=== PATIENT | female | born 1990 | race Caucasian/White ===

== ENCOUNTER 2022-04-05 08:46 | Emergency (ER) | payer BC, SELFPAY ==
[2022-04-05 09:00] VITALS: BP 107/67; BP 113/62; PULSE 100; PULSE 54; RESP 12; RESP 26; TEMP 36.2; O2SAT 100; O2SAT 98; BMI 21.9
--- NOTE | 2022-04-05 09:10 | ED_ITS ---
HPI - Abdominal Pain General Time Seen by Provider: 09:10 Date Seen: 04/05/22 Chief Complaint: Abdominal Pain Stated Complaint: Lower abdominal pain Time Seen by Provider: 04/05/22 08:49 Source: patient, family (Mother is with), RN notes reviewed and old records reviewed Mode of arrival: ambulatory Limitations: no limitations History of Present Illness HPI narrative: Patient is a pleasant but uncomfortable 31-year-old female coming in with severe abdominal pain. She awoke this morning and went to go to the bathroom. She was having some lower pelvic pain, thought she might need to have a bowel movement. She you went into the bathroom and states she actually passed out. She did not end up having a bowel movement. The pain is worsened and is severe. She has had nausea but has not vomited. She has not ate or drank anything this morning. She is not sure if the pain is causing her to have nausea or if she is nauseated baseline now with the 80s abdominal symptoms. She does have a significant history with pelvic floor pain and has been to [facility] with this. She also has a history of IBS. She has been seen our obstetricians here in there is an extensive note from Dr. Frye from 02/27/2022. I have reviewed that in its entirety. She did have a pelvic ultrasound on 01/29/2022 which was normal but did have a physiologic cyst I believe on the right ovary. From the note on February 27 her pelvic floor pain included Depakote nannette dysfunction, dyspareunia and sporadic lower abdominal cramping. Patient states she is never experienced anything like this before. She states her most recent period was 03/15/2022 and per her previous records her LMP prior to that was 02/15/2022. She is not actively trying to conceive at this time. MD elicited complaint: abdominal pain Onset (ago): hour(s) Pain Consistency: constant Location: RLQ, suprapubic, pelvis and other (Generalizes into the abdomen) Severity: severe Related Data Date of last menstrual period: 03/15/22 Patient : No Home Medications Medication Instructions Recorded Confirmed No Known Home Medications 04/05/22 04/05/22 Allergies Allergy/AdvReac Type Severity Reaction Status Date / Time amoxicillin Allergy Verified 04/05/22 09:05 erythromycin base Allergy Verified 04/05/22 09:05 fluoxetine [From Prozac] Allergy Verified 04/05/22 09:05 Penicillins Allergy Verified 04/05/22 09:05 Review of Systems Status of ROS Reports: 10 or more systems reviewed and unremarkable except as noted in History and below [facility] Medical History (Updated 04/05/22 @ 11:52 by Xi Singh MD) IBS (irritable bowel syndrome) Pelvic pain Social History Do you use any of these nicotine containing products: None Second hand tobacco smoke exposure: No How often do you have a drink containing alcohol: 2-3 times a week How many standard drinks containing alcohol do you have on a typical day: 1 or 2 How often do you have six or more drinks on one occasion: Less than monthly AUDIT-C Alcohol total score: 4 Non-prescribed substance use: denies use Exam Const: Vital Signs, click to edit/add: Vital Signs - 24 hr 04/05/22 09:00 Temperature 97.2 F L Pulse Rate [Right Pulse Oximeter] 54 L Respiratory Rate 26 H Blood Pressure [Ri ght Upper Arm] 113/62 Pulse Oximetry 98 Documenting provider has reviewed patient's vital signs: yes Common normals: oriented x3, no limitations, healthy appearing and alert General appearance: cooperative and in distress moderate (Uncomfortable and hanging onto her right lower quadrant) Nutritional appearance: thin Orientation/consciousness: Yes awake HENMT: Common normals: normocephalic, head/scalp atraumatic, hearing grossly normal bilaterally, external ears normal, nasal mucous membranes and turbinates normal, moist oral mucous membranes, oropharynx normal and dentition normal Head and scalp: normocephalic and atraumatic Nose: nasal mucous membranes and turbinates normal External ear: external ears normal Eye: Common normals: PERRL, EOMs intact bilaterally, conjunctivae normal and no scleral icterus Conjunctiva: conjunctiva(e) normal Pupil: PERRL Neck & C-Spine: Common normals: full ROM, no lymphadenopathy, supple, no meningeal signs, no JVD and thyroid normal Thyroid: thyroid normal Resp: Common normals: normal respiratory effort, no retractions, no use of accessory muscles and clear to auscultation bilaterally Auscultation: clear to auscultation bilaterally Cardio: Common normals: no JVD, regular rate, regular rhythm, S1 normal heart sound, S2 normal heart sound, no gallops and no clicks Rate: regular rate Rhythm: regular rhythm Heart sounds: S1 normal and S2 normal GI: Common normals: Normal to inspection, nondistended, normoactive bowel sounds present, soft to palpation, no hepatosplenomegaly and no masses Palpation: soft, tender, guarding and no hepatosplenomegaly Other: Is tender in her right lower quadrant to suprapubic area but pain generalizes throughout her abdomen. I would not say that there is any definite rebound or guarding but she is uncomfortable with the examination. Extremity: Common normals: normal to inspection, full ROM, normal capillary refill, no joint enlargement, no clubbing, cyanosis or edema, no calf tenderness and no pedal edema Neuro: Common normals: oriented x3 Sensorium/orientation: awake and alert Meningeal signs: no meningeal signs Course Course Hospital Course: We will place an IV, get appropriate screening labs, will start 500 mL normal saline and give her 15 mg IV Toradol with 4 mg IV Zofran. We will start with a pelvic ultrasound looking at her right ovary. The acuity and severity of this would make me think more of an ovarian cyst. It is possible that this is an atypical presentation of her pelvic floor dysfunction or IBS. We will confirm negative status to rule out any concerning entities such as ectopic . There is no vaginal bleeding at this time. Depending on our evaluation with the ultrasound and labs, may need to consider further advanced imaging with CT but we will start with a pelvic ultrasound and labs 1st. We will try a nonnarcotic pain alleviation 1st. Reevaluation(s) Reevaluation #1: Have reviewed patient's ultrasound with her. She does have a hemorrhagic cyst on the left side. Right now I see her holding centrally in the pelvic area. She did require some morphine IV after her ultrasound as her pain was quite severe. She is better but still having pain. We did discuss that the appendix is on the right side but with the onset of her pain just this morning within hours, completely normal labs and normal inflammatory markers, would recommend a period of observation rather than proceeding to CT abdomen pelvis immediately. She would be at low risk of rupture this early on in the course of appendicitis. I have seen patients present with opposite sided pain from where there cyst is. She understands the rationale for holding and having a period of outpatient observation at this point. I am going to re-dose 15 mg IV Toradol, give her 5 mg oral oxycodone for further pain management. Ten tabs from [facility] for oxycodone and Zofran provided. Time: 11:45 Vital Signs Vital signs: Initial Vital Signs Temperature 97.2 F L 04/05/22 09:00 Temperature Source Temporal Artery Scan 04/05/22 09:00 Pulse Rate 54 L 04/05/22 09:00 Respiratory Rate 26 H 04/05/22 09:00 Blood Pressure 113/62 04/05/22 09:00 Blood Pressure Mean 79 04/05/22 09:00 Blood Pressure Position Supine 04/05/22 09:00 Pulse Oximetry 98 04/05/22 09:00 Oxygen Delivery Method 04/05/22 09:00 Vital Signs Temperature 97.2 F L 04/05/22 09:00 Pulse Rate 54 L 04/05/22 09:00 Respiratory Rate 26 H 04/05/22 09:00 Blood Pressure 113/62 04/05/22 09:00 Pulse Oximetry 98 04/05/22 09:00 Temperature 97.2 F L 04/05/22 09:00 Pulse Rate 54 L 04/05/22 09:00 Respiratory Rate 26 H 04/05/22 09:00 Blood Pressure 113/62 04/05/22 09:00 Pulse Oximetry 98 04/05/22 09:00 MDM - Abdominal Pain Lab Data Attestation: I reviewed the patient's lab results. Labs: Lab Results 04/05/22 04/05/22 04/05/22 Range/Units 09:30 09:30 09:30 WBC 6.70 (4.50-11.00) K/uL RBC 4.47 (4.00-5.20) m/uL Hgb 14.3 (12.0-16.0) gm/dL Hct 41.7 (33.0-51.0) % MCV 93 (80-100) fL MCH 32 (26-34) pg MCHC 34 (32-36) gm/dL RDW Coeff of Thomas 12.0 (11.5-15.5) % Plt Count 247 (140-440) K/uL Neut % (Auto) 65.8 (42.0-72.0) % Lymph % (Auto) 23.0 (20-44) % Kingfisher % (Auto) 9.6 (0.0-11.0) % Eos % (Auto) 1.2 (0.0-7.0) % Baso % (Auto) 0.4 (0.0-3.0) % Neut # (Auto) 4.41 (1.7-7.0) K/uL Lymph # (Auto) 1.54 (0.90-2.90) K/uL Kingfisher # (Auto) 0.60 (0.00-0.90) K/UL Eos # (Auto) 0.08 (0.00-0.50) K/uL Baso # (Auto) 0.03 (0.00-0.30) K/uL Abs Immat Gran (auto) 0.00 (0.00-0.30) K/uL ESR <2 L (2-20) mm/hr Sodium 137 (135-149) mmol/L Potassium 4.2 (3.6-5.1) mmol/L Chloride 106 (96-114) mmol/L Carbon Dioxide 25 (20-32) mmol/L BUN 18 (5-24) mg/dL Creatinine 0.8 (0.5-1.5) mg/dL Estimated Creat Clear 99.99 Estimated GFR 102 ml/min Glucose 91 (60-115) mg/dL Lactate (0.5-1.9) mmol/L Calcium 8.8 (8.4-10.6) mg/dL Total Bilirubin 0.6 (0.1-1.5) mg/dL AST 26 (12-35) U/L ALT 18 (4-35) U/L Alkaline Phosphatase 78 (40-150) U/L C-Reactive Protein < 0.5 L (0.5-1.0) mg/dL Total Protein 6.5 (6.0-8.3) g/dL Albumin 4.1 (3.3-5.0) g/dL HCG, Qual (Negative) 04/05/22 04/05/22 Range/Units 09:30 09:30 WBC (4.50-11.00) K/uL RBC (4.00-5.20) m/uL Hgb (12.0-16.0) gm/dL Hct (33.0-51.0) % MCV (80-100) fL MCH (26-34) pg MCHC (32-36) gm/dL RDW Coeff of Thomas (11.5-15.5) % Plt Count (140-440) K/uL Neut % (Auto) (42.0-72.0) % Lymph % (Auto) (20-44) % Kingfisher % (Auto) (0.0-11.0) % Eos % (Auto) (0.0-7.0) % Baso % (Auto) (0.0-3.0) % Neut # (Auto) (1.7-7.0) K/uL Lymph # (Auto) (0.90-2.90) K/uL King[place]isher # (Auto) (0.00-0.90) K/UL Eos # (Auto) (0.00-0.50) K/uL Baso # (Auto) (0.00-0.30) K/uL Abs Immat Gran (auto) (0.00-0.30) K/uL ESR (2-20) mm/hr Sodium (135-149) mmol/L Potassium (3.6-5.1) mmol/L Chloride (96-114) mmol/L Carbon Dioxide (20-32) mmol/L BUN (5-24) mg/dL Creatinine (0.5-1.5) mg/dL Estimated Creat Clear Estimated GFR ml/min Glucose (60-115) mg/dL Lactate 1.0 (0.5-1.9) mmol/L Calcium (8.4-10.6) mg/dL Total Bilirubin (0.1-1.5) mg/dL AST (12-35) U/L ALT (4-35) U/L Alkaline Phosphatase (40-150) U/L C-Reactive Protein (0.5-1.0) mg/dL Total Protein (6.0-8.3) g/dL Albumin (3.3-5.0) g/dL HCG, Qual Negative (Negative) Imaging Data US - abdomen: Attestation: I have reviewed the pertinent imaging results. Radiologist's impression: Patient: [facility] Facility:?[facility] Patient ID:?[id number] Site Patient ID:?[id number]. Site :?[id number] Study:?US Pelvis -04/05/2022 10:33:21 AM Ordering Physician:Stephon Layne Final Report: INDICATION: Pelvic pain. COMPARISON: Report of pelvic ultrasound from 01/29/2022 available. TECHNIQUE: Transvaginal pelvic ultrasound. FINDINGS: The uterus is measuring 7.5 x 3.2 x 3.4 cm. The endometrial stripe is measuring 6 mm in thickness with homogeneous echotexture. The right ovary is measuring 3.8 x 2.4 x 2.8 cm and the left ovary is measuring 4.7 x 3.8 x 3.6 cm. Normal blood flow to the ovaries bilateral. No free fluid identified in the pelvic cul-de-sac. A 3.5 x 3.5 x 3.2 cm hemorrhagic cyst left ovary. IMPRESSION: 1. A 3.5 cm hemorrhagic cyst left ovary. 2. Negative transvaginal pelvic ultrasound otherwise. Dictated by Debbie Murphy MD @ 04/05/2022 11:32:01 AM (Electronic Signature) Critical Care Time Critical Care Time Critical Care Time: No Discharge Plan Discharge Clinical Impression: Hemorrhagic cyst of left ovary Patient Disposition: Home, Self-Care Condition: Stable Instructions: Ovarian Cyst (ED) Additional Instructions: Take Tylenol 1000 mg 3 times a day baseline for pain. Can supplement with ibuprofen per bottle directions for additional pain control. Prescription of oxycodone will be provided for more severe pain, note that this is narcotic and you cannot drive or operate machinery on it, can make you constipated and nauseated. Will send a prescription for Zofran for helping with nausea. If you develop fever, have worsening of your abdominal pain or is continuing to localize to the right lower quadrant, do recommend re-evaluation within [address] imaging of the abdomen needs to be entertained. Activity Level: Activity as Tolerated Discharge Diet: Regular Prescriptions: No Action No Known Home Medications 0RF Follow Up/Referrals: Cole Roper MD [Primary Care Provider] - Stand Alone Forms: [employer] Info Instructions
--- NOTE | 2022-04-05 09:17 | CRLHL7_ITS ---
For Patients: As a result of the Century Cures Act, medical imaging exams and procedure reports are released immediately into your electronic medical record. You may view this report before your referring provider. If you have questions, please contact your health care provider. INDICATION: Pelvic pain. COMPARISON: Report of pelvic ultrasound from 01/29/2022 available. TECHNIQUE: Transvaginal pelvic ultrasound. FINDINGS: The uterus is measuring 7.5 x 3.2 x 3.4 cm. The endometrial stripe is measuring 6 mm in thickness with homogeneous echotexture. The right ovary is measuring 3.8 x 2.4 x 2.8 cm and the left ovary is measuring 4.7 x 3.8 x 3.6 cm. Normal blood flow to the ovaries bilateral. No free fluid identified in the pelvic cul-de-sac. A 3.5 x 3.5 x 3.2 cm hemorrhagic cyst left ovary. IMPRESSION: 1. A 3.5 cm hemorrhagic cyst left ovary. 2. Negative transvaginal pelvic ultrasound otherwise. Dictated by Debbie Murphy MD @ 04/05/2022 11:32:01 AM (Electronically Signed)
[2022-04-05 09:40] LABS: Basophils Absolute Auto 0.03 K/uL (0.00-0.30); Basophils Percent Auto 0.4 % (0.0-3.0); Eosinophils Absolute Auto 0.08 K/uL (0.00-0.50); Eosinophils Percent Auto 1.2 % (0.0-7.0); Hemoglobin* 14.3 gm/dL (12.0-16.0); Lymphocytes Absolute Auto 1.54 K/uL (0.90-2.90); Mean Corpuscular HGB Conc 34 gm/dL (32-36); Mean Corpuscular Hemoglobin 32 pg (26-34); Mean Corpuscular Volume 93 fL (80-100); Monocytes Percent Auto 9.6 % (0.0-11.0); Neutrophils Absolute Auto 4.41 K/uL (1.7-7.0); Neutrophils Percent Auto 65.8 % (42.0-72.0); Platelet Count* 247 K/uL (140-440); Red Blood Count 4.47 m/uL (4.00-5.20)
[2022-04-05] MEDS: 0.9 % SODIUM CHLORIDE 500 ML 500 ML IV (09:41)
[2022-04-05] MEDS: ONDANSETRON 2 MG/ML inj 4 MG IVP (09:42)
[2022-04-05] MEDS: KETOROLAC 15 MG/ML inj IVP ×2 (09:43→12:00)
[2022-04-05 09:45] VITALS: BP 112/63; PULSE 50; O2SAT 100
[2022-04-05 10:00] LABS: Albumin* 4.1 g/dL (3.3-5.0); Chloride* 106 mmol/L (96-114); Potassium* 4.2 mmol/L (3.6-5.1); Sodium* 137 mmol/L (135-149)
[2022-04-05 10:03] LABS: Alanine Aminotransferase* 18 U/L (4-35); Alkaline Phosphatase* 78 U/L (40-150); Aspartate Amino Transferase* 26 U/L (12-35); Bilirubin Total* 0.6 mg/dL (0.1-1.5); Blood Urea Nitrogen* 18 mg/dL (5-24); Calcium* 8.8 mg/dL (8.4-10.6); Carbon Dioxide* 25 mmol/L (20-32); Creatinine* 0.8 mg/dL (0.5-1.5); Est. Creatinine Clearance* 99.99; Estimated Glomerular Filt Rate 102 ml/min; Glucose* 91 mg/dL (60-115); Total Protein* 6.5 g/dL (6.0-8.3)
[2022-04-05 10:08] LABS: HCG Qualitative Serum* Negative (Negative)
[2022-04-05 10:24] LABS: C Reactive Protein* < 0.5 mg/dL (0.5-1.0)
[2022-04-05 10:30] VITALS: BP 113/80; PULSE 55; RESP 12; O2SAT 100
[2022-04-05 10:44] LABS: Erythrocyte SedimentationRate* <2 mm/hr (2-20)
[2022-04-05 11:00] VITALS: BP 104/55; PULSE 49; O2SAT 100
[2022-04-05] MEDS: MORPHINE 4 MG/ML INJ IVP (11:23)
[2022-04-05 11:30] VITALS: BP 106/56; PULSE 56; O2SAT 98
[2022-04-05 11:49] LABS: Hematocrit 41.7 % (33.0-51.0)
[2022-04-05] MEDS: OXYCODONE 5 MG TABLET PO (12:03)
[2022-04-05 12:05] LABS: SARS PCR* Negative SARS-CoV-2 (Negative)
[2022-04-05 12:15] VITALS: BP 107/57; PULSE 50; RESP 18; O2SAT 100
[2022-04-05 15:35] LABS: Slide Review Reflex No
== END 2022-04-05 12:14 | disposition home or self-care (01) ==
PROVIDERS: Emergency Provider Family Medicine; PCP Family Medicine
DX: N83.202 Unspecified ovarian cyst, left side (principal)
CPT/HCPCS: 36415; 76830; 80053; 83605; 84703; 85025; 85651; 86140; 87635; 93976; 96374; 96375; 99284; A9270; J1885; J2270; J2405; J7120

== ENCOUNTER 2022-04-07 13:48 | Inpatient (IN) | payer BC, SELFPAY ==
[2022-04-07] VITALS (9 sets, daily range): BP systolic 108–122; BP diastolic 61–82; PULSE 44–53; RESP 12–18; TEMP 36.8–36.9; O2SAT 98–100; BMI 21.9; BMI 23.2
--- NOTE | 2022-04-07 14:35 | CRLHL7_ITS ---
For Patients: As a result of the Century Cures Act, medical imaging exams and procedure reports are released immediately into your electronic medical record. You may view this report before your referring provider. If you have questions, please contact your health care provider. HISTORY: Right lower quadrant abdominal pain. TECHNIQUE: Intravenous contrast enhanced CT of the abdomen and pelvis. 69 mL Isovue-370 intravenous contrast was administered. COMPARISON: No prior. FINDINGS: There is no focal liver parenchymal abnormality. No biliary ductal dilatation. Gallbladder does not appear excessively distended. Possible small amount of pericholecystic fluid. Spleen and adrenal glands are normal. No focal pancreatic abnormality. Symmetric nephrograms. No renal mass or hydronephrosis. No obstructive calculus. Urinary bladder is mildly distended. - Small amount of pelvic free fluid. Peripherally enhancing structure within the left adnexa measuring approximately 2.3 cm in size may relate to recent cyst or follicle rupture. - No small bowel obstruction. No appendicitis. No diverticulitis. The colon is nondistended which limits evaluation of its wall thickness. - No abdominal aortic aneurysm. - No infiltrate within the lung bases nor pleural effusion. - No acute fractures. IMPRESSION: 1. Small amount of pelvic free fluid which is nonspecific but could be physiologic in a female patient this age. 2. Peripherally enhancing structure within the left adnexa may relate to recent cyst or follicle rupture. 3. There is no appendicitis. 4. Possible small amount pericholecystic fluid. Gallbladder does not appear excessively distended. Dictated by Deonte Bear MD @ 04/07/2022 3:45:34 PM Please note that all CT scans at this facility use dose modulation, iterative reconstruction, and/or weight-based dosing when appropriate to reduce radiation dose to as low as reasonably achievable. Dictated by: Deonte Bear MD @ 04/07/2022 15:45:41 (Electronically Signed)
--- NOTE | 2022-04-07 14:35 | CRLHL7_ITS ---
For Patients: As a result of the Century Cures Act, medical imaging exams and procedure reports are released immediately into your electronic medical record. You may view this report before your referring provider. If you have questions, please contact your health care provider. CLINICAL HISTORY: Right pelvic pain TECHNIQUE: Real time, mak scale images were acquired of the pelvis using a transabdominal and transvaginal approach. Color Doppler analysis was performed of the ovaries. FINDINGS: Uterus measures 6.85 and 3.8 centimeters. Endometrium measures 6 millimeters. Moderate MR anechoic fluid in the cul-de-sac. Right ovary measures 3.5 x 2.7 x 3.6 centimeters normal blood flow to the right ovary. Complex left ovarian cyst measuring 2.7 x 2 x 2.7 centimeters. Normal blood flow to the left ovary. IMPRESSION: 1. Unremarkable right ovary with normal blood flow. Moderate amount of free fluid in the pelvis. 2. Complex left ovarian cyst. Normal blood flow to left ovary recommend follow-up in 8-12 weeks. Dictated by Zee Kang MD @ 04/07/2022 4:34:50 PM (Electronically Signed)
--- NOTE | 2022-04-07 14:42 | ED_ITS ---
HPI - General Adult General Time Seen by Provider: 14:42 Date Seen: 04/07/22 Chief complaint: Abdominal Pain Stated complaint: Right Side Abdominal Pain Time Seen by Provider: 04/07/22 14:29 Source: patient Mode of arrival: ambulatory Limitations: no limitations History of Present Illness HPI narrative: Patient is a 31-year-old female who was here on Friday 2 days ago with significant pelvic pain. She was noted to have a left hemorrhagic ovarian cyst, she was prescribed oxycodone but continues to have pain, and now it is more on the right side of her lower abdomen. Her ultrasound at that time showed good blood flow bilaterally, no torsion, test was negative. The patient has had a workup for pelvic floor pain has been to [place] for this, irritable bowel syndrome. She reports the pain is quite significant when she tries to have a bowel movement or urinate, she gets a sensation of passing out. She has no chest pain no breathing issue, no COVID symptoms. Patient recently negative COVID test. Denies fevers chills or rigors, denies dysuria or hematuria no constipation diarrhea. Related Data Home Medications Medication Instructions Recorded Confirmed No Known Home Medications 04/05/22 04/05/22 Allergies Allergy/AdvReac Type Severity Reaction Status Date / Time amoxicillin Allergy Verified 04/07/22 14:50 erythromycin base Allergy Verified 04/07/22 14:50 fluoxetine [From Prozac] Allergy Verified 04/07/22 14:50 Penicillins Allergy Verified 04/07/22 14:50 Review of Systems Status of ROS: Reports: 10 or more systems reviewed and unremarkable except as noted in History and below [facility] Medical History IBS (irritable bowel syndrome) Pelvic pain Social History Smoking Status: Never smoker Do you use any of these nicotine containing products: None Second hand tobacco smoke exposure: No How often do you have a drink containing alcohol: 2-3 times a week How many standard drinks containing alcohol do you have on a typical day: 1 or 2 How often do you have six or more drinks on one occasion: Less than monthly AUDIT-C Alcohol total score: 4 Non-prescribed substance use: denies use Exam Const: Vital Signs, click to edit/add: Vital Signs - 24 hr 04/07/22 14:13 Pulse Rate [Pulse Oximeter] 53 L Respiratory Rate 18 Blood Pressure [Ri ght Upper Arm] 122/74 Pulse Oximetry 100 Course Course Hospital Course: Given the patient's degree of pain will start an IV, IV morphine, IV Zofran, IV Toradol. Will repeat a pelvic ultrasound to make sure there was adequate blood flow and recheck the ovarian hemorrhagic cyst on the left, will also do a CT scan with IV contrast to ensure there is no appendicitis given her right lower quadrant pain, or other intra-abdominal pathology. Will check labs, IV fluids, pain and nausea control Vital Signs Vital signs: Initial Vital Signs Pulse Rate 53 L 04/07/22 14:13 Respiratory Rate 18 04/07/22 14:13 Blood Pressure 122/74 04/07/22 14:13 Blood Pressure Mean 90 04/07/22 14:13 Blood Pressure Position Supine 04/07/22 14:13 Pulse Oximetry 100 04/07/22 14:13 Oxygen Delivery Method 04/07/22 14:13 Vital Signs Pulse Rate 53 L 04/07/22 14:13 Respiratory Rate 18 04/07/22 14:13 Blood Pressure 122/74 04/07/22 14:13 Pulse Oximetry 100 04/07/22 14:13 Pulse Rate 53 L 04/07/22 14:13 Respiratory Rate 18 04/07/22 14:13 Blood Pressure 122/74 04/07/22 14:13 Pulse Oximetry 100 04/07/22 14:13 Medical Decision Making MDM Narrative Medical decision making narrative: Patient was here 2 days ago with a diagnosis of left ovarian her M hemorrhagic cyst, now her symptoms are more localized to the right lower quadrant, I think we need to rule out appendicitis, rule out ovarian torsion, rule out increased bleeding from an ovarian cyst or ruptured ovarian cyst with pelvic blood. She had a negative test recently will repeat, electrolytes and labs. The patient her mom were comfortable plan. Addendum: The patient's pain is markedly improved with the medicine above, given that she was on oxycodone home and continued to have symptoms and pain, I will admit her to the hospital. Dr. hannon kindly will follow in hospital. Discussed with Dr. Ruth Martin are research food technologist oracle security consultant who was aware of the situation. I will review the ultrasound formal report when it returns. From the cable technician the patient has fluid around the right ovary consistent with bleeding not marked blood in the cul-de-sac and a persistent left ovarian hemorrhagic cyst. CT scan of the abdomen pelvis showed no appendicitis, and this was done given her right-sided abdominal pain. Patient does feel better with IV medications, and I think admission overnight for hydration, pain control IV would be reasonable, with research food technologist consultation as needed. Patient her mother were comfortable plan Lab Data Labs: Lab Results 04/07/22 04/07/22 04/07/22 Range/Units 14:45 14:45 14:45 WBC 8.93 (4.50-11.00) K/uL RBC 4.44 (4.00-5.20) m/uL Hgb 14.3 (12.0-16.0) gm/dL Hct 41.7 (33.0-51.0) % MCV 94 (80-100) fL MCH 32 (26-34) pg MCHC 34 (32-36) gm/dL RDW Coeff of Thomas 12.0 (11.5-15.5) % Plt Count 255 (140-440) K/uL Neut % (Auto) 59.9 (42.0-72.0) % Lymph % (Auto) 29.8 (20-44) % [place] % (Auto) 8.5 (0.0-11.0) % Eos % (Auto) 0.9 (0.0-7.0) % Baso % (Auto) 0.3 (0.0-3.0) % Neut # (Auto) 5.35 (1.7-7.0) K/uL Lymph # (Auto) 2.66 (0.90-2.90) K/uL [place] # (Auto) 0.80 (0.00-0.90) K/UL Eos # (Auto) 0.08 (0.00-0.50) K/uL Baso # (Auto) 0.03 (0.00-0.30) K/uL Abs Immat Gran (auto) 0.05 (0.00-0.30) K/uL Sodium 138 (135-149) mmol/L Potassium 4.0 (3.6-5.1) mmol/L Chloride 108 (96-114) mmol/L Carbon Dioxide 27 (20-32) mmol/L BUN 10 (5-24) mg/dL Creatinine 0.8 (0.5-1.5) mg/dL Estimated Creat Clear 99.99 Estimated GFR 102 ml/min Glucose 96 (60-115) mg/dL Calcium 9.2 (8.4-10.6) mg/dL Total Bilirubin 0.6 (0.1-1.5) mg/dL Direct Bilirubin 0.2 (0.0-0.5) mg/dL AST 33 (12-35) U/L ALT 25 (4-35) U/L Alkaline Phosphatase 80 (40-150) U/L C-Reactive Protein < 0.5 L (0.5-1.0) mg/dL Total Protein 6.8 (6.0-8.3) g/dL Albumin 4.4 (3.3-5.0) g/dL Amylase 69 (18-89) U/L HCG, Qual (Negative) 04/07/22 Range/Units 14:45 WBC (4.50-11.00) K/uL RBC (4.00-5.20) m/uL Hgb (12.0-16.0) gm/dL Hct (33.0-51.0) % MCV (80-100) fL MCH (26-34) pg MCHC (32-36) gm/dL RDW Coeff of Thomas (11.5-15.5) % Plt Count (140-440) K/uL Neut % (Auto) (42.0-72.0) % Lymph % (Auto) (20-44) % [place] % (Auto) (0.0-11.0) % Eos % (Auto) (0.0-7.0) % Baso % (Auto) (0.0-3.0) % Neut # (Auto) (1.7-7.0) K/uL Lymph # (Auto) (0.90-2.90) K/uL [place] # (Auto) (0.00-0.90) K/UL Eos # (Auto) (0.00-0.50) K/uL Baso # (Auto) (0.00-0.30) K/uL Abs Immat Gran (auto) (0.00-0.30) K/uL Sodium (135-149) mmol/L Potassium (3.6-5.1) mmol/L Chloride (96-114) mmol/L Carbon Dioxide (20-32) mmol/L BUN (5-24) mg/dL Creatinine (0.5-1.5) mg/dL Estimated Creat Clear Estimated GFR ml/min Glucose (60-115) mg/dL Calcium (8.4-10.6) mg/dL Total Bilirubin (0.1-1.5) mg/dL Direct Bilirubin (0.0-0.5) mg/dL AST (12-35) U/L ALT (4-35) U/L Alkaline Phosphatase (40-150) U/L C-Reactive Protein (0.5-1.0) mg/dL Total Protein (6.0-8.3) g/dL Albumin (3.3-5.0) g/dL Amylase (18-89) U/L HCG, Qual Negative (Negative) Discharge Plan Discharge Clinical Impression: Abdominal pain, acute, Hemorrhagic cyst of left ovary Patient Disposition: Admitted As Inpatient Condition: Improved Prescriptions: No Action No Known Home Medications 0RF Follow Up/Referrals: Cole Roper MD [Primary Care Provider] -
[2022-04-07] MEDS: KETOROLAC 30 MG/ML inj IVP (14:55)
[2022-04-07] MEDS: MORPHINE 4 MG/ML INJ IVP ×5 (14:55→23:06)
[2022-04-07] MEDS: ONDANSETRON 2 MG/ML inj 4 MG IVP ×2 (14:55→20:12)
[2022-04-07] MEDS: 0.9 % SODIUM CHLORIDE 1000 ml 1,000 ML 6000 ML IV (14:56)
[2022-04-07 15:00] LABS: Basophils Absolute Auto 0.03 K/uL (0.00-0.30); Basophils Percent Auto 0.3 % (0.0-3.0); Eosinophils Absolute Auto 0.08 K/uL (0.00-0.50); Eosinophils Percent Auto 0.9 % (0.0-7.0); Hematocrit 41.7 % (33.0-51.0); Hemoglobin* 14.3 gm/dL (12.0-16.0); Immature Granulocytes Abs Auto 0.05 K/uL (0.00-0.30); Lymphocytes Absolute Auto 2.66 K/uL (0.90-2.90); Lymphocytes Percent Auto 29.8 % (20-44); Mean Corpuscular HGB Conc 34 gm/dL (32-36); Mean Corpuscular Hemoglobin 32 pg (26-34); Mean Corpuscular Volume 94 fL (80-100); Monocytes Percent Auto 8.5 % (0.0-11.0); Neutrophils Absolute Auto 5.35 K/uL (1.7-7.0); Neutrophils Percent Auto 59.9 % (42.0-72.0); Platelet Count* 255 K/uL (140-440); Red Blood Count 4.44 m/uL (4.00-5.20); White Blood Count* 8.93 K/uL (4.50-11.00)
[2022-04-07 15:11] LABS: Chloride* 108 mmol/L (96-114); Sodium* 138 mmol/L (135-149)
[2022-04-07 15:12] LABS: Albumin* 4.4 g/dL (3.3-5.0); HCG Qualitative Serum* Negative (Negative)
[2022-04-07 15:13] LABS: Slide Review Reflex No
[2022-04-07 15:14] LABS: Amylase* 69 U/L (18-89); Creatinine* 0.8 mg/dL (0.5-1.5); Est. Creatinine Clearance* 99.99; Estimated Glomerular Filt Rate 102 ml/min
[2022-04-07 15:15] LABS: Bilirubin Direct* 0.2 mg/dL (0.0-0.5); Bilirubin Total* 0.6 mg/dL (0.1-1.5); Blood Urea Nitrogen* 10 mg/dL (5-24); Calcium* 9.2 mg/dL (8.4-10.6); Carbon Dioxide* 27 mmol/L (20-32); Glucose* 96 mg/dL (60-115); Total Protein* 6.8 g/dL (6.0-8.3)
[2022-04-07 15:16] LABS: Alanine Aminotransferase* 25 U/L (4-35); Alkaline Phosphatase* 80 U/L (40-150); Aspartate Amino Transferase* 33 U/L (12-35)
[2022-04-07 15:19] LABS: C Reactive Protein* < 0.5 mg/dL (0.5-1.0)
[2022-04-07 16:19] LABS: Appearance Urine Clear (Clear); Bilirubin Urine Negative (Negative); Blood Urine Negative (Negative); Color Urine Yellow (Yellow); Glucose Urine Negative (Negative); Ketones Urine Negative (Negative); Leukocyte Esterase Urine Negative (Negative); Nitrite Urine Negative (Negative); Protein Urine Negative (Negative); Specific Gravity Urine 1.015 (1.000-1.030); Urobilinogen Urine 0.2 (0.2-1.0)
[2022-04-07 16:29] LABS: Bacteria Urine Few; RBC Urine 0-2 (0-2); WBC Urine 0-2 (0-5)
--- NOTE | 2022-04-07 16:32 | P.IMHP_ITS ---
Hospitalist- H&P: HPI History of Present Illness Time Seen by Provider: 16:40 Date Seen: 04/07/22 Chief complaint: Right Side Abdominal Pain Narrative: Natividad Bravo is a 31 year old female who presented to the ED for persistent lower abdominal pain. Symptoms began 3 days ago, in bilateral lower quadrants. Over the past 2 days, it has primarily localized into the RLQ. She's had associated nausea and dry heaving. Did have an episode of syncope yesterday while straining to have a BM (has noted some constipation on Oxycodone). Seen in ED 04/05 for symptoms, found to have a LEFT ovarian cyst on imaging. She was discharged home with oral oxycodone, but symptoms have worsened over the last 24 hours. ER course and findings: - persistent LEFT ovarian cyst on pelvic ultrasound - given RIGHT sided pain, CT scan was done, exhibiting no additional findings or concerns - Moderate pain relief with IV morphine, also required Zofran for nausea Given intractable pain that has not been responsive to p.o. medications come patient will be admitted for pain control and monitoring. ER physician discussed case with Dr. Hall, on-call OBGYN, who agrees with plan and has no further recommendations for inpatient management. PCP is Dr. Roper, Dr. Frye is HOSIERY LOOPER. History of IBS. Also has history of pelvic floor dysfunction, seeing PT for this. No regular medications. G0. Stopped OCPs earlier this year - considering . LMP 03/15/22. Foot surgery and tonsillectomy remotely. 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 Review of Systems Status of ROS: Reports: 10 or more systems reviewed and unremarkable except as noted in History and below [facility] Medical History (Updated 04/07/22 @ 14:46 by Nader Whitfield MD) IBS (irritable bowel syndrome) Pelvic pain Surgical History (Updated 04/07/22 @ 18:34 by Pia Saunders RN) History of tonsillectomy Social History Highest level of school completed/degree received: Bachelor's degree Smoking Status: Never smoker Do you use any of these nicotine containing products: None Second hand tobacco smoke exposure: No How often do you have a drink containing alcohol: 2-3 times a week How many standard drinks containing alcohol do you have on a typical day: 1 or 2 How often do you have six or more drinks on one occasion: Less than monthly AUDIT-C Alcohol total score: 4 Non-prescribed substance use: denies use Caffeine: Yes (coffee) service: No Meds Home Medications and Allergies Home Medications Medication Instructions Recorded Confirmed Type No Known Home Medications 04/05/22 04/05/22 History Home Medication Comments: Recently given a prescription of oxycodone for pain control Allergies Allergy/AdvReac Type Severity Reaction Status Date / Time amoxicillin Allergy Verified 04/07/22 14:50 erythromycin base Allergy Verified 04/07/22 14:50 fluoxetine [From Prozac] Allergy Verified 04/07/22 14:50 Penicillins Allergy Verified 04/07/22 14:50 Exam Narrative: Exam Narrative: GEN: Alert and oriented, uncomfortable but nontoxic, answering questions appropriately HEENT: Normal external ears, EOMIs bilaterally, no scleral icterus CV: RRR, No concerning murmurs, rubs, or gallops R: LCTA bilaterally without concerning wheezing, rales, or rhonchi Ab: Soft, no distention, + ttp in BLQ, mild guarding Ext: wwp, no concerning edema Skin: No concerning skin lesions or rashes on exposed skin Neuro: Nonfocal Psych: Appropriate Const: Vital Signs, click to edit/add: Vital Signs - 24 hr 04/07/22 14:13 Pulse Rate [Pulse Oximeter] 53 L Respiratory Rate 18 Blood Pressure [Ri ght Upper Arm] 122/74 Pulse Oximetry 100 Hospitalist - H&P: Result Labs Labs: Short CBC 04/07/22 Range/Units 14:45 WBC 8.93 (4.50-11.00) K/uL Hgb 14.3 (12.0-16.0) gm/dL Hct 41.7 (33.0-51.0) % Plt Count 255 (140-440) K/uL BMP 04/07/22 14:45 Sodium 138 Potassium 4.0 Chloride 108 Carbon Dioxide 27 BUN 10 Creatinine 0.8 Glucose 96 Calcium 9.2 Liver Function 04/07/22 Range/Units 14:45 Total Bilirubin 0.6 (0.1-1.5) mg/dL Direct Bilirubin 0.2 (0.0-0.5) mg/dL AST 33 (12-35) U/L ALT 25 (4-35) U/L Alkaline Phosphatase 80 (40-150) U/L Albumin 4.4 (3.3-5.0) g/dL Urine 04/07/22 Range/Units 15:45 Urine Color Yellow (Yellow) Urine Appearance Clear (Clear) Urine pH 8.0 (5.0-8.5) Ur Specific [place] 1.015 (1.000-1.030) Urine Protein Negative (Negative) Urine Glucose (UA) Negative (Negative) Assessment and Plan Assessment and plan (1) Hemorrhagic cyst of left ovary: Status: Acute (2) Abdominal pain, acute: Status: Acute Plan 31-year-old female with abdominal pain secondary to hemorrhagic ovarian cyst: 1. Abdominal pain: Ovarian cyst most likely source. Patient has a history of IBS and pelvic floor dysfunction, but has never had symptoms like this with either of those diagnoses. Continue IV pain medications, transition to oral as tolerated. Antiemetics as needed. Monitor closely for any worsening of symptoms. 2. SCDs and ambulation for prophylaxis. 3. Full code.
--- NOTE | 2022-04-07 17:24 | W.PC.EDHO ---
Primary Language: Thai Preferred Language: Meal tray ordered Orientation Status: [X] Alert & Oriented [] Slight Confusion [] Known Dx Dementia Transfers By: [X] Assist of 1 [] Assist of 2 [] Lift Active Medications Generic Name Dose Route Start Last Admin Trade Name Freq PRN Reason Stop Dose Admin Morphine Sulfate 4 mg 04/07/22 16:42 04/07/22 16:52 Morphine 4 Mg/Ml Inj IVP 04/07/22 18:42 4 mg Q2H PRN Administration Pain Discontinued Medications Generic Name Dose Route Start Last Admin Trade Name Freq PRN Reason Stop Dose Admin Sodium Chloride 1,000 mls @ 6,000 mls/hr 04/07/22 14:45 04/07/22 16:00 0.9 % Sodium Chloride 1000 Ml IV 04/07/22 14:54 Infused .Q10M WILDER Infusion Ketorolac Tromethamine 30 mg 04/07/22 14:34 04/07/22 14:55 Ketorolac 30 Mg/Ml Inj IVP 04/07/22 14:35 30 mg ONCE ONE Administration Morphine Sulfate 4 mg 04/07/22 14:34 04/07/22 14:55 Morphine 4 Mg/Ml Inj IVP 04/07/22 14:35 4 mg ONCE ONE Administration Ondansetron HCl 4 mg 04/07/22 14:34 04/07/22 14:55 Ondansetron 2 Mg/Ml Inj IVP 04/07/22 14:35 4 mg ONCE ONE Administration Description of Symptoms ED Triage Present Problem was here friday and diagnosed with ovarian cyst. Description today having pain on R side, taking oxycodone for pain, last dose was at 8am. anytime I try to go to the bathroom I almost pass out Female History Date of last menstrual period 03/17/22 Hx Last Menstrual Period 03/17/22 Patient No Patient No Pain Pain Intensity [Right Abdomen] 10 Pain Intensity [Right Abdomen] 6 Pain Intensity 6 Pain Intensity 3 Pain Intensity 3 Pain Intensity 10 Pain Intensity 10 Pain Intensity 10 Pain Intensity 10 Pain Scale Used [Right Abdomen Numeric (1 - 10) ] Pain Scale Used [Right Abdomen Numeric (1 - 10) ] Pain Scale Used Numeric (1 - 10) Pain Scale Used Numeric (1 - 10) Pain Scale Used Numeric (1 - 10) Pain Scale Used Numeric (1 - 10) Pain Scale Used Numeric (1 - 10) Pain Scale Used Numeric (1 - 10) Pain Scale Used Numeric (1 - 10) Pain Site Observation [Right WNL Abdomen] IV Insertion/Site Date of IV Line Insertion [ #20G 04/07/22 right anticubital] Oxygen Administration Pulse Oximetry 100 Oxygen Delivery Method Room Air
[2022-04-07 17:38] LABS: SARS PCR* Negative SARS-CoV-2 (Negative)
--- NOTE | 2022-04-07 18:43 | ED.NURSE ---
1619-Order for inpatient placed by . COVID result pending at this time. M/S aware and MD aware. 1738-COVID result negative. 1745-M/S attempted to call report. 1600-Report given to PATI Serrano. Pt taken to Rm 281 via w/c, tolerates well. Pt reports pain improved after morphine. VSS.
[2022-04-07] MEDS: KETOROLAC 15 MG/ML inj IVP (21:04)
[2022-04-07] MEDS: OXYCODONE 5 MG TABLET PO (22:06)
[2022-04-08] VITALS (25 sets, daily range): BP systolic 90–126; BP diastolic 50–100; PULSE 42–66; RESP 12–20; TEMP 36.4–37.6; O2SAT 94–100
[2022-04-08] MEDS: LORazepam 0.5 MG TABLET PO (00:16)
[2022-04-08] MEDS: hydrOXYzine pamoate 25 MG CAPSULE PO ×2 (00:17→10:36)
[2022-04-08] MEDS: MORPHINE 4 MG/ML INJ IVP ×4 (02:10→19:07)
[2022-04-08] MEDS: ONDANSETRON 2 MG/ML inj 4 MG IVP ×3 (02:15→21:06)
[2022-04-08] MEDS: OXYCODONE 5 MG TABLET PO ×4 (03:00→21:05)
[2022-04-08] MEDS: KETOROLAC 15 MG/ML inj IVP ×4 (03:00→22:20)
--- NOTE | 2022-04-08 05:49 | PC.NURSE ---
[id number]: patient up ad yeimi, continues to have significant pain; see EMAR for meds given. rates pain between 4-7/10. pain increases with urination or pressure changes to abd.
[2022-04-08] MEDS: ACETAMINOPHEN 325 MG TABLET 975 MG PO ×2 (10:36→23:34)
--- NOTE | 2022-04-08 14:15 | PM.GYNCN1 ---
CONTRACT AGENT - CN: HPI Data of Consult Time Seen by Provider: 13:00 Date Seen: 04/08/22 Patient: [facility] Patient Consult date: 04/08/22 Requesting Physician: Ruma Perez MD Primary Care Provider: Cole Roper MD Consult Narrative Narrative: Natividad Bravo is a 31 year old female I am seeing by kind request of Dr. Perez for evaluation of persistent abdominal pain. She presented to the ER after severe pain leading to syncope on Friday evening. She had an ultrasound at that time showing suspected hemorrhagic cyst of the left ovary. She was treated with narcotics for suspected ruptured hemorrhagic left ovarian cyst and sent home. However, pain did not improve. She had another episode of syncope on Friday, which led her back to the ER. Repeat pelvic ultrasound showed uterus of normal dimensions, endometrial stripe 6 mm, moderate anechoic fluid in cul-de-sac, normal right ovary, complex left ovarian cyst measuring 2.7 cm in greatest dimension. There was normal blood flow to the left ovary. This time, she was admitted for pain control. She is currently using about 10 mg of oxycodone every 3 hours, in addition to IV morphine. Her pain is poorly managed on this regimen. Pain is most severe in the right lower quadrant. She had some diarrhea yesterday, none today. She tolerated regular diet for breakfast this morning at 8:00 a.m.. She was on combined oral contraceptives for years up until October 2021. I last saw her in clinic 01/28/2022. At that time, she did report some longstanding dyspareunia. Pelvic exam suggested vaginismus. She was referred to physical therapy. She has seen them for a couple visits, and reports improvement in fecal urgency, but no changes in pelvic pain. 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 Her mother manages the [employer]. Highest level of school completed/degree received: Bachelor's degree Smoking Status: Never smoker Do you use any of these nicotine containing products: None Second hand tobacco smoke exposure: No How often do you have a drink containing alcohol: 2-3 times a week How many standard drinks containing alcohol do you have on a typical day: 1 or 2 How often do you have six or more drinks on one occasion: Less than monthly AUDIT-C Alcohol total score: 4 Non-prescribed substance use: denies use Caffeine: Yes (coffee) service: No Meds Home Medications and Allergies Home Medications Medication Instructions Recorded Confirmed Type No Known Home Medications 04/05/22 04/08/22 History Allergies Allergy/AdvReac Type Severity Reaction Status Date / Time amoxicillin Allergy Verified 04/07/22 14:50 erythromycin base Allergy Verified 04/07/22 14:50 fluoxetine [From Prozac] Allergy Verified 04/07/22 14:50 Penicillins Allergy Verified 04/07/22 14:50 CONTRACT AGENT - Exam Physical Exam: Vital signs: Temp Pulse Resp BP Pulse Ox 98 F 61 18 113/58 L 100 04/08/22 11:00 04/08/22 11:00 04/08/22 11:00 04/08/22 11:00 04/08/22 11:00 Narrative: General: Obviously uncomfortable, shifting from foot to foot while standing. Psych: Alert and oriented x 3, full affect HEENT: Normocephalic, atraumatic Abdomen: Normoactive bowel sounds in all 4 quadrants, soft, moderate to severe tenderness to palpation of right lower quadrant and suprapubic region with voluntary guarding. No rebound, no masses, no hepatosplenomegaly, no hernias, no distension CONTRACT AGENT - Results Labs Labs: Short CBC 04/07/22 Range/Units 14:45 WBC 8.93 (4.50-11.00) K/uL Hgb 14.3 (12.0-16.0) gm/dL Hct 41.7 (33.0-51.0) % Plt Count 255 (140-440) K/uL BMP 04/07/22 14:45 Sodium 138 Potassium 4.0 Chloride 108 Carbon Dioxide 27 BUN 10 Creatinine 0.8 Glucose 96 Calcium 9.2 Liver Function 04/07/22 Range/Units 14:45 Total Bilirubin 0.6 (0.1-1.5) mg/dL Direct Bilirubin 0.2 (0.0-0.5) mg/dL AST 33 (12-35) U/L ALT 25 (4-35) U/L Alkaline Phosphatase 80 (40-150) U/L Albumin 4.4 (3.3-5.0) g/dL Urine 04/07/22 Range/Units 15:45 Urine Color Yellow (Yellow) Urine Appearance Clear (Clear) Urine pH 8.0 (5.0-8.5) Ur Specific [place] 1.015 (1.000-1.030) Urine Protein Negative (Negative) Urine Glucose (UA) Negative (Negative) Imaging CT scan - pelvis: Radiologist's impression: CT scan from 04/07/2022: Small amount of pelvic free fluid. Peripherally enhancing structure within the left adnexa possibly related to recent cyst or follicle rupture. No appendicitis. Possible small amount of pericholecystic fluid. Gallbladder does not appear excessively distended. US - abdomen: Attestation: I have reviewed the pertinent imaging results. My impression: Pelvic US from 01/06/22: Agree with findings as in HPI. Radiologist's impression: Pelvic ultrasound from 04/05/2022: Uterus of normal dimensions, endometrial stripe 6 mm, 3.5 cm hemorrhagic cyst of the left ovary. No free fluid in the cul-de-sac. Assessment and Plan Assessment and plan (1) Hemorrhagic cyst of left ovary: Status: Acute (2) Abdominal pain, acute: Status: Acute Assessment and Plan: Acute right lower quadrant pain, beginning 3 days ago, with no improvement over the last 24 hours despite inpatient IV morphine. Ruptured ovarian cyst seems less likely etiology given the duration of symptoms. Rule out endometriosis. Plan I recommended diagnostic laparoscopy, with fulguration and excision of endometriosis if it is present. If it is present, I would perform chromopertubation as well. I will any ovarian cyst that is present. Discussed risks of procedure, including bleeding, infection, damage to internal organs, risks of anesthesia. NPO now.
[2022-04-08] MEDS: BUPIVACAINE 0.5% 30 ML 10 ML INJECTION (16:51)
--- NOTE | 2022-04-08 17:13 | SUR.OPER ---
VERN CATHERTER PLACED BY Dariusz
--- NOTE | 2022-04-08 17:16 | SUR.OPER ---
PATIENT QUESTIONS ANSWERED SATISFACTORILY PREOPERATIVELY. PATIENT BROUGHT TO OR #3 PER M/S BED. Patient positioned supine on OR #3 bed for the intubation. Pt. then moved into the lithotomy position for the procedure. Perioperative team padded and tucked the arms at pt. side in a neutral position. ?Final approval of positioning by surgeon.
--- NOTE | 2022-04-08 17:25 | SUR.OPER ---
IRRIGATION IN THE LOWER ABDOMEN W/1000cc BAG NACL AT 1716. 700cc NACL USED FOR THE IRRIGATION.
[2022-04-08] MEDS: SILVER NITRATE APPLICATOR 1 EACH STICK..EA. TOPICAL (17:48)
--- NOTE | 2022-04-08 18:00 | SUR.OPER ---
VERN Berger/Kate AT 1746.
--- NOTE | 2022-04-08 18:09 | PM.IMPN1 ---
Progress Note: A&P Assessment and plan (1) Abdominal pain, acute: Status: Acute Assessment and Plan: Pain is mostly right-sided despite hemorrhagic cyst being on the left. Also she is requiring large doses of narcotics for pain control, which is unusual for hemorrhagic cyst that started 3 and half days ago. I have reviewed the results of her 2 pelvic ultrasounds over the last [address] abdomen and pelvis done yesterday. No evidence of abnormal gallbladder or appendix on the CT. I spoke with Dr. Madden who is agreeable to consult on this patient for this concern and will likely take the patient to the OR for an exploratory laparoscopy. Continue pain control with narcotics, make NPO. Obtain orthostatic vital signs today. (2) Hemorrhagic cyst of left ovary: Status: Acute Subjective Time Seen by Provider: 07:45 Date Seen: 04/08/22 Interval history: I saw at [place] this morning when she was 1st waking up and then I went in later to talk with her and her mother, Kinsey, who came around mid morning. She got morphine almost every 2 hours overnight as well as several doses of oxycodone. Despite that she remains fairly painful especially with any movement or strain on the toilet. At time she still feels like she might faint when she is sitting on the toilet. She had 2 bowel movements yesterday that were normal for her. She denies any fevers or chills. She notes the pain is mostly on the right side but a little bit on the left lower quadrant as well. She has a history of pelvic floor dysfunction. Exam Narrative: Exam Narrative: General: Appears painful and anxious. Awake, alert, oriented x3. No pallor. No jaundice. Oropharynx: Clear. Mucous membranes slightly dry. Cardiovascular: Regular rate and rhythm. No murmurs, gallops, or rubs. Respiratory: Clear to auscultation bilaterally. No wheezes or crackles. Abdomen: Bowel sounds present. Soft, nondistended, tender to palpation in both lower quadrants, right more than left. Rebound tenderness is presents in both lower quadrants, no guarding. Extremities: No pedal edema. Const: Vital Signs, click to edit/add: Vital Signs - 24 hr 04/07/22 18:22 04/07/22 19:00 04/07/22 23:00 Temperature 98.4 F 98.2 F 98.3 F Pulse Rate [Left P ulse Oximeter] 49 L 47 L 49 L Respiratory Rate 18 18 18 Blood Pressure [Le ft Arm] 120/61 118/61 115/76 Pulse Oximetry 100 98 100 04/08/22 03:00 04/08/22 07:00 04/08/22 11:00 Temperature 98 F 98 F 98 F Pulse Rate [Left P ulse Oximeter] 53 L 42 L 61 Respiratory Rate 18 16 18 Blood Pressure [Le ft Arm] 115/64 90/50 L 113/58 L Pulse Oximetry 99 99 100 04/08/22 15:00 Temperature 98.3 F Pulse Rate [Left P ulse Oximeter] 50 L Respiratory Rate 20 Blood Pressure [Le ft Arm] 123/75 Pulse Oximetry 100
--- NOTE | 2022-04-08 18:16 | W.ANESCHARGE ---
Anesthesia Charges Start Date/Time Anesthesia Start Date: 04/08/22 Anesthesia Start Time: 16:13 Stop Date/Time Anesthesia Stop Date: 04/08/22 Anesthesia Stop Time: 18:05 Summary Emergency: Yes
[2022-04-08] MEDS: fentaNYL 100 MCG/2 ML inj 50 MCG IVP ×2 (18:24→18:29)
--- NOTE | 2022-04-08 19:25 | W.PM.GYNPROC ---
Procedure Note Date Seen: 04/08/22 Procedure Details: PREOPERATIVE DIAGNOSIS: Acute pelvic pain Ruptured left ovarian cyst POSTOPERATIVE DIAGNOSIS: Acute pelvic pain Ruptured left ovarian cyst PROCEDURE: Laparoscopy with left ovarian cystectomy, left paratubal cystectomy SURGEON: Marlyn Madden MD ANESTHESIA: General IV FLUIDS: 1300 mL crystalloid URINE OUTPUT: 400 mL EBL: 15 mL FINDINGS: 1. On exam under anesthesia, cervix was normal appearance. Uterus was mobile and anteverted without any palpable adnexal masses. 2. Upon laparoscopy, survey of the upper abdomen revealed a normal appearance to the inferior edge of the liver, gallbladder, and stomach. Bowels were grossly normal in appearance, as was the appendix. Survey of the pelvis revealed normal appearance to the uterus, bladder reflection, and cul-de-sac. There was a small amount of bloody fluid in the cul-de-sac. Bilateral tubes were normal in appearance. The right ovary was normal in appearance. Left ovary exhibited an opening in the cortex where cyst had apparently ruptured. One cyst was entirely removed, it was approximately 2 cm in greatest dimension. COMPLICATIONS: None PROCEDURE IN DETAIL: Patient was taken to the operating with IV running. She was positioned on the operating table with her legs fully supported in Yellofin stirrups. General anesthesia was administered. She was prepped and draped in the usual sterile fashion. With patient's legs in lithotomy position, exam under anesthesia was performed for the above-noted findings. Speculum was inserted. Cervix was visualized and grasped with a single-tooth tenaculum. A toothed uterine manipulator was inserted through the cervix into the lower uterine segment and affixed to the anterior lip of the cervix. Speculum was removed. Damon catheter was placed. Patient's legs were placed in neutral position. Attention was turned to patient's abdomen. The infraumbilical area was infiltrated with small amount of Marcaine. Infraumbilical incision was made with a scalpel and carried through to the underlying layer of fascia with a hemostat. The 5 mm Fios Kii tucker trocar was assembled with the laparoscopic within it. The insufflator was attached. This was passed through the anterior abdominal wall into the peritoneal cavity while tenting the abdominal wall up manually. Once entry to into the peritoneal cavity was confirmed visually, the trocar was removed. The balloon on the tip of the port was inflated. Pneumoperitoneum was achieved. Survey of the abdomen and pelvis revealed the above-noted findings. Two additional port sites were created. The 1st was in the patient's left lower quadrant, just superior medial to the left ASIS. The 2nd was a hand's breath superior to and slightly medial to the 1st. Each was infiltrated with small amount of Marcaine prior to incision. A 5 mm incision was made at each site, making sure the large vessels were out of harm's way. A 5 mm Fios Kii port was inserted at each site, under direct visualization and without complication. The balloon on each of the ports was inflated, holding each in place. The left ovary was elevated out of the ovarian fossa. The opening of the cyst rupture was grasped with atraumatic graspers. The opening was lengthened with laparoscopic johanne. First pieces of the cyst wall, then an intact loculation of the cyst were removed with traction. These were removed from the patient's abdomen and sent to pathology. The dissection bed within the ovary was then treated with monopolar cautery and Surgicel was applied within to obtain hemostasis. There was also a subcentimeter pedunculated simple paratubal cyst along the distal aspect of the fallopian tube. This was held away from the healthy appearing fallopian tube and amputated sharply. Bleeding at the base of the excision was treated with monopolar cautery. All instruments were removed from the ports. Pneumoperitoneum was released balloon tips of each port were deflated and ports were removed. Bovie was used on oozing vessels in the subcutaneous tissue beneath each skin incision. Skin incisions were closed with a subcuticular stitch of 4-0 Monocryl. Surgical glue was applied above this. Finally, the legs back in lithotomy position, the uterine manipulator was removed. Speculum exam revealed bleeding along the puncture site of the anterior cervix, which was staunched with silver nitrate. Damon catheter was removed. Patient tolerated procedure well and was taken to recovery area in stable condition.
[2022-04-08] MEDS: HYDROmorphone 0.5 mg/0.5 ml inj IVP ×2 (19:56→22:30)
[2022-04-08] MEDS: SENNOSIDES/DOCUSATE TABLET 2 TAB PO (22:21)
[2022-04-09] VITALS: BP 117/66; PULSE 99; RESP 20; TEMP 37
[2022-04-09] MEDS: hydrOXYzine pamoate 25 MG CAPSULE PO (00:46)
[2022-04-09] MEDS: LORazepam 0.5 MG TABLET PO ×2 (00:47→10:19)
[2022-04-09] MEDS: OXYCODONE 5 MG TABLET PO ×4 (01:06→14:07)
[2022-04-09 02:10] LABS: Chlamydia DNA Amplified* NOT DETECTED (No Detected); GC DNA Amplified* NOT DETECTED (No Detected)
[2022-04-09 03:30] VITALS: PULSE 48; RESP 16; O2SAT 98
[2022-04-09] MEDS: KETOROLAC 15 MG/ML inj IVP ×2 (06:36→10:18)
--- NOTE | 2022-04-09 06:40 | PC.NURSE ---
Shift Note : Pt pleasant and cooperative. BP and HR remain low, Pt continues to be asymptomatic with this. LS are clear, BS are active in all quads but hypoactive on the left side. Lap sites are CDI with a small amount of old blood visible under the glue. Pain continued to be poorly controlled at the start of shift, Pt able to fall asleep @ 0230 and remained asleep until 0630. Pt has stated that she is hoping to discharge to home today. See eMAR for medication administration.
[2022-04-09 07:00] VITALS: BP 127/82; PULSE 75; RESP 16; TEMP 37.3; O2SAT 100
[2022-04-09] MEDS: ACETAMINOPHEN 325 MG TABLET 975 MG PO (10:51)
[2022-04-09 11:00] VITALS: BP 115/59; PULSE 57; RESP 16; TEMP 36.7; O2SAT 100
--- NOTE | 2022-04-09 11:11 | PT.IPTHADN ---
PT note: Orders received for PT. Pt is up in room, holding furniture. Issued walker for short term use. Called pt's PT, Coco Copeland, and pt will have PT on Friday04/12/22. Advised pt on activity level, use of ice/heat and relaxation ex for pelvic floor. She will resume OP PT for further ex and internal stretch. No charge for visit.
--- NOTE | 2022-04-09 11:13 | P.GYNPN_ITS ---
TRANSIT PLANNING MANAGER - A/P Assessment and plan (1) Abdominal pain, acute: Status: Acute Assessment and Plan: No clear gynecologic etiology for the patient's pain. The patient's hemorrhagic cyst on the left ovary does not explain the amount of narcotic pain medications the patient has required. Okay to be discharged home from gynecologic perspective. Limited amount of narcotics recommended. Typically after a laparoscopic ovarian cystectomy I prescribed oxycodone 5 mg 1 tablet every 8 hours as needed for pain plus ibuprofen 600 mg p.o. every 6 hours: Alternate these medications. She can use extra-strength Tylenol every 6 hours as well. She should not require n arcotics for more than 7 days. Off of work for 1 week. Activity restrictions: Nothing vaginally for 2 weeks. No lifting or exercise restrictions. She can do anything that she feels up to doing as the incisions are too small to result in a hernia. Showering is safe right away. No soaking the incisions in a tub/pool/lombardi for 2 weeks[address] well taking narcotic pain medication. Follow up with gynecology as needed. (2) Hemorrhagic cyst of left ovary: Status: Acute Postoperative Procedures: Procedures Operation Date: 04/08/22 16:15 Actual Procedure Side Surgeon p Diagnostic Laparoscopy, LEFT OVARIAN CYSTECTOMY, LEFT FALLOPIAN TUNE CYSTECTOMY Left Marlyn Madden MD Time Spent With Patient Time: Total time spent is greater than 50% in coordination of care (as documented) at patient's floor/unit and/or counseling patient: Time with patient: less than 15 minutes TRANSIT PLANNING MANAGER- PN:Subj Post-Op Subjective Time Seen by Provider: 11:13 Date Seen: 04/09/22 Interval history: Natividad was seen this morning and states her pain has improved since her surgery yesterday. The cyst was on the left and removed. The right ovary was normal. There was a small amount of fluid in the pelvis and there was no other anatomic abnormality. There was nothing structural to explain the intensity of her pain. She continues to require large amounts of oxycodone. She says she now has spasm-like pain when she urinates and sometimes feels she is unable to empty her bladder. She is seeing a pelvic floor physical therapist to treat pelvic pain and pelvic floor dyfunction. Natividad has a significant amount of anxiety and is very sensitive to any discomfort she feels in her pelvis. I am concerned she may have vaginal pain syndrome (vestibulodynia/vaginismus) and/or bladder pain syndrome (interstitial cystitis). First line treatment for these are tricyclic antidepressants which are indicated in . Natividad and her spouse are fine to conceive so I would not treat the pain disorders. I would recommend evaluation treatment for these pain disorders to her after and delivery. She may want to consider a medication for anxiety as the therapy that she is doing does not appear to be managing her anxiety symptoms very well. Serotonin reuptake inhibitors are safe in . Post Operative Details: Post-operative day number 1: status post diagnostic laparoscopy with left ovarian cystectomy TRANSIT PLANNING MANAGER-PN: Obj Exam Physical Exam: Vital signs: Temp Pulse Resp BP Pulse Ox 98.0 F 57 L 16 115/59 L 100 04/09/22 11:00 04/09/22 11:00 04/09/22 11:00 04/09/22 11:04/09/22 11:00 Narrative: General: Pleasant, woman in no acute distress. Vital signs are included in her electronic medical record. Heart: Regular rate and rhythm without gallop, rub or murmur. Chest: Clear auscultation bilaterally without wheezes, rales or rhonchi. Abdomen: Soft, bilateral lower quadrant tenderness to deep palpation R > L. No guarding or rebound. Normal bowel sounds throughout. Patient is tolerating regular diet. No CVA or flank tenderness. Incisions: 3 laparoscopic incisions fall clean, dry and intact with sutures and skin adhesive gel. Extremities: No pain, edema, cyanosis or clubbing. Urinary Catheter Management: Urethral: Cath placed during this visit: yes Urethral indwelling: No Insertion date: 04/08/22 Insertion time: 16:41 TRANSIT PLANNING MANAGER - PN: Obj Data Labs Labs: Laboratory Results - last 24 hr 04/08/22 15:18 C.trachomatis Ampl DNA NOT DETECTED N.gonorrhoeae Ampl DNA NOT DETECTED
--- NOTE | 2022-04-09 11:52 | P.DS_ITS ---
DS: Providers Provider Time Seen by Provider: 08:20 Date Seen: 04/09/22 Date of admission: 04/09/22 08:46 Primary care physician: Cole Roper MD Admitting Clinician: Chelsie Hawkins MD Consults: 04/08/22 12:43 Consult to Physician [CONS] Routine Comment: Consulting Provider: Marlyn Madden Has provider been notified: Yes Attending Physician on discharge: Ruma Perez MD Date of Discharge: 04/09/22 DS: Diagnosis Discharge Diagnosis (1) Hemorrhagic cyst of left ovary: Status: Acute Problem details: s/p exploratory laproscopy 04/08/22 (2) Abdominal pain, acute: Status: Acute Problem details: suspect secondary to hemorrhagic cyst; differential includes: vaginal pain syndrome/spasms, interstitial cystitis, musculoskeletal pain, pelvic floor pain, referred back or SI pain, early shingles, anxiety syndrome (3) Pelvic pain: Status: Acute Problem details: Has been to [facility] for pelvic floor pain/pelvic floor syndrome. (4) Anxiety: Status: Acute Problem details: Offered prozac. Patient declined. I recommended follow up and to discuss anxiety with her outpatient therapist. (5) S/P exploratory laparotomy: Status: Acute Problem details: laproscopic for hemorrhagic cyst DS: Summary Hospital Course Hospital Course: 31 year-old female who had bilateral lower quadrant pain that began suddenly on Friday. She went to ED 04/05 and was found to have left ovarian cyst. She was started on oral oxycodone and was also alternating acetaminophen and ibuprofen. She had persistent abdominal pain, mostly RLQ. CT abd/pelvis and repeat transvaginal US on 04/07/22 showed persistent left ovarian cyst, small amt of free pelvic fluid, no additional findings or concerns. She was admitted with IV and oral narcotics. Continued to be very painful. [employer]PARTMENT consulted. She underwent exploratory laproscopy 04/08/22 and removal of left ovarian cyst. No additiona findings or concerns on ex lap. Pain slightly less this morning 04/09/22, but still needing narcotic medications for pain control. Desiring homegoing. Able to eat. +urination, +flatus, +ambulation. Discharging home in stable condition. F/u with PCP later this week if not improving. Status at Discharge Functional status at discharge: independent ambulation Time Spent with Patient Time attestation: Total time spent providing and/or coordinating discharge services: Time spent: Greater than 30 minutes Exam Narrative: Exam Narrative: General: Anxious about pain. Awake, alert, oriented x3. No pallor. No jaundice. Oropharynx: Clear. Mucous membranes moist. Cardiovascular: Regular rate and rhythm. No murmurs, gallops, or rubs. Respiratory: Clear to auscultation bilaterally. No wheezes or crackles. Abdomen: Bowel sounds present. Soft, nondistended, tender to palpation in both lower quadrants, right more than left, a little less than yesterday. Approximately the same amount of pain in same areas with head off bed, abdominal muscles contracted. No rebound tenderness, no guarding. 3 surgical wounds are hemostatic, clean, dry, intact. Extremities: No pedal edema. Const: Vital Signs, click to edit/add: Vital Signs - 24 hr 04/08/22 15:00 04/08/22 18:04 04/08/22 18:10 Temperature 98.3 F 97.7 F Pulse Rate 53 L 49 L Pulse Rate [Left P ulse Oximeter] 50 L Respiratory Rate 20 14 16 Blood Pressure 110/71 109/75 Blood Pressure [Le ft Arm] 123/75 Pulse Oximetry 100 94 96 04/08/22 18:15 04/08/22 18:20 04/08/22 18:25 Temperature 97.5 F L Pulse Rate 48 L 47 L 50 L Pulse Rate [Left P ulse Oximeter] Respiratory Rate 14 16 18 Blood Pressure 111/67 107/70 108/65 Blood Pressure [Le ft Arm] Pulse Oximetry 95 97 100 04/08/22 18:30 04/08/22 18:35 04/08/22 18:40 Temperature 97.6 F Pulse Rate 47 L 45 L 50 L Pulse Rate [Left P ulse Oximeter] Respiratory Rate 16 16 14 Blood Pressure 119/68 115/67 113/64 Blood Pressure [Le ft Arm] Pulse Oximetry 100 100 100 04/08/22 18:45 04/08/22 18:48 04/08/22 18:55 Temperature 97.8 F 99.7 F H Pulse Rate 51 L 60 66 Pulse Rate [Left P ulse Oximeter] Respiratory Rate 12 12 16 Blood Pressure 112/64 120/72 Blood Pressure [Le ft Arm] 110/100 H Pulse Oximetry 97 97 04/08/22 19:00 04/08/22 19:15 04/08/22 19:30 Temperature 99.3 F 99.3 F 99 F Pulse Rate Pulse Rate [Left P ulse Oximeter] 58 L 60 Respiratory Rate 16 18 18 Blood Pressure Blood Pressure [Le ft Arm] 126/74 126/74 124/68 Pulse Oximetry 99 99 99 04/08/22 19:45 04/08/22 20:20 04/08/22 21:00 Temperature 99.2 F 99 F 99 F Pulse Rate Pulse Rate [Left P ulse Oximeter] 50 L 55 L 50 L Respiratory Rate 18 18 16 Blood Pressure Blood Pressure [Le ft Arm] 120/63 120/63 120/63 Pulse Oximetry 99 99 99 04/08/22 22:05 04/08/22 22:23 04/08/22 23:00 Temperature 98.6 F 98.6 F 98.6 F Pulse Rate Pulse Rate [Left P ulse Oximeter] 56 L 58 L 56 L Respiratory Rate 16 16 16 Blood Pressure Blood Pressure [Le ft Arm] 119/73 111/66 107/76 Pulse Oximetry 100 100 99 04/09/22 00:00 04/09/22 03:30 04/09/22 07:00 Temperature 98.6 F 99.2 F Pulse Rate Pulse Rate [Left P ulse Oximeter] 99 48 L 75 Respiratory Rate 20 16 16 Blood Pressure Blood Pressure [Le ft Arm] 117/66 127/82 Pulse Oximetry 98 100 04/09/22 11:00 Temperature 98.0 F Pulse Rate Pulse Rate [Left P ulse Oximeter] 57 L Respiratory Rate 16 Blood Pressure Blood Pressure [Le ft Arm] 115/59 L Pulse Oximetry 100 DS: Data Data Completed and Pending Completed studies during hospitalization: Ordering Physician: Nader Whitfield M.D. Date of Service: 04/07/22 Procedure(s): CT abdomen pelvis w con Accession Number(s): [id number] cc: Cole Roper MD; Nader Whitfield M.D.~ For Patients: As a result of the Cures Act, medical imaging exams and procedure reports are released immediately into your electronic medical record. You may view this report before your referring provider. If you have questions, please contact your health care provider. HISTORY: Right lower quadrant abdominal pain. TECHNIQUE: Intravenous contrast enhanced CT of the abdomen and pelvis. 69 mL Isovue-370 intravenous contrast was administered. COMPARISON: No prior. FINDINGS: There is no focal liver parenchymal abnormality. No biliary ductal dilatation. Gallbladder does not appear excessively distended. Possible small amount of pericholecystic fluid. Spleen and adrenal glands are normal. No focal pancreatic abnormality. Symmetric nephrograms. No renal mass or hydronephrosis. No obstructive calculus. Urinary bladder is mildly distended. - Small amount of pelvic free fluid. Peripherally enhancing structure within the left adnexa measuring approximately 2.3 cm in size may relate to recent cyst or follicle rupture. - No small bowel obstruction. No appendicitis. No diverticulitis. The colon is nondistended which limits evaluation of its wall thickness. - No abdominal aortic aneurysm. - No infiltrate within the lung bases nor pleural effusion. - No acute fractures. IMPRESSION: 1. Small amount of pelvic free fluid which is nonspecific but could be physiologic in a female patient this age. 2. Peripherally enhancing structure within the left adnexa may relate to recent cyst or follicle rupture. 3. There is no appendicitis. 4. Possible small amount pericholecystic fluid. Gallbladder does not appear excessively distended. Dictated by Deonte Bear MD @ 04/07/2022 3:45:34 PM Please note that all CT scans at this facility use dose modulation, iterative reconstruction, and/or weight-based dosing when appropriate to reduce radiation dose to as low as reasonably achievable. Dictated by: Deonte Bear MD @ 04/07/2022 15:45:41 (Electronically Signed) Ordering Physician: Nader Whitfield M.D. Date of Service: 04/07/22 Procedure(s): US pelvic transvaginal Accession Number(s): [id number] cc: Cole Roper MD; Nader Whitfield M.D.~ For Patients: As a result of the 21st Century Cures Act, medical imaging exams and procedure reports are released immediately into your electronic medical record. You may view this report before your referring provider. If you have questions, please contact your health care provider. CLINICAL HISTORY: Right pelvic pain TECHNIQUE: Real time, mak scale images were acquired of the pelvis using a transabdominal and transvaginal approach. Color Doppler analysis was performed of the ovaries. FINDINGS: Uterus measures 6.85 and 3.8 centimeters. Endometrium measures 6 millimeters. Moderate MR anechoic fluid in the cul-de-sac. Right ovary measures 3.5 x 2.7 x 3.6 centimeters normal blood flow to the right ovary. Complex left ovarian cyst measuring 2.7 x 2 x 2.7 centimeters. Normal blood flow to the left ovary. IMPRESSION: 1. Unremarkable right ovary with normal blood flow. Moderate amount of free fluid in the pelvis. 2. Complex left ovarian cyst. Normal blood flow to left ovary recommend follow-up in 8-12 weeks. Dictated by Zee Kang MD @ 04/07/2022 4:34:50 PM (Electronically Signed) Labs on day of discharge: Labs from last 24 hours 04/08/22 04/08/22 17:55 15:18 C.trachomatis Ampl DNA NOT DETECTED N.gonorrhoeae Ampl DNA NOT DETECTED Surg PTH (Off-Site) Pending Discharge Plan Discharge Disposition: Home, Self-Care Date of Admission: 04/09/22 08:46 Attending Provider on Discharge: Ruma Perez Consulting Providers: Marlyn Madden ; Marianne Frye Primary Care Provider: Cole Roper Condition: Stable Anticipated Discharge Date/Time: 04/09/22 12:14 Discharge Medications: New acetaminophen 325 mg Tablet 975 mg PO Q8H PRNQty: 100 0RF ibuprofen 400 mg tablet 400 mg PO Q6H Qty: 120 2RF oxycodone 5 mg Tablet 5 - 10 mg PO Q4H PRNQty: 20 0RF sennosides-docusate sodium [Stool Softener-Laxative] 8.6-50 mg Tablet 2 tab PO HS Qty: 20 0RF No Action No Known Home Medications 0RF Discharge Orders: Discharge Order (Routine); Ordered 04/09/22 Ordered By: Ruma Perez Patient Education: Ovarian Cyst (DC) Activity Level: Activity as Tolerated Discharge Diet: Regular Follow Up Appointments: Cole Roper MD [Primary Care Provider] - 04/11/22 Amara Copeland [Other] - 04/12/22 Forms: [facility] Info Instructions
--- NOTE | 2022-04-09 13:08 | PC.NURSE ---
Prescription called to [facility]. Hydroxyzine 25 mg tablet, one tablet po q6h prn #10, no refills
--- NOTE | 2022-04-09 16:11 | PC.NURSE ---
Pt pleasant and cooperative. BP and HR remain low, Pt continues to be asymptomatic with BP and HR being low. Pt denies any N/V. LS are clear, BS are active in all quads. Lap sites are CDI with a small amount of old blood visible under the glue. Pain continued to be poorly controlled at the start of shift, Pt ambulated in hallway w/walker and tolerated activity well. Pt. discharged at 1420 to home via wheelchair and accompanied by mother. One time dose of 5mg Oxy okayed by MD prior to discharge. See eMAR for medication administration. IV removed and intact. Discharge instructions given and belongings sheet signed. Pt. and Mother verbalized understanding of discharge instructions and follow up appointments.
== END 2022-04-09 14:20 | disposition home or self-care (01) | DRG 513 ==
LOC: ED 16:19 → MEDSURG 18:41
PROVIDERS: Obstetrics & Gynecology; Admitting Provider Family Medicine; Emergency Provider Family Medicine; PCP Family Medicine; Visit Provider Family Medicine
PROC: 0UB14ZZ Excision of Left Ovary, Percutaneous Endoscopic Approach (ICD-10-PCS; CPT 49320; principal; 2022-04-08 16:00)
DX: N83.292 Other ovarian cyst, left side (principal); R10.31 Right lower quadrant pain; R10.32 Left lower quadrant pain; R10.2 Pelvic and perineal pain; K58.9 Irritable bowel syndrome, unspecified; F41.9 Anxiety disorder, unspecified; F32.A Depression, unspecified
CPT/HCPCS: 00840; 36415; 74177; 76830; 80048; 80076; 81001; 82150; 84703; 85025; 86140; 87086; 87491; 87591; 87635; 88305; 93976; 99140; 99284; A9270; G0378; J1100; J1170; J1885; J2250; J2270; J2405; J2704; J3010; J3490; J7030; Q9967

== ENCOUNTER 2022-04-22 08:38 | Emergency (ER) | payer BC, SELFPAY ==
[2022-04-22 08:47] VITALS: BP 101/64; PULSE 57; RESP 16; TEMP 36.3; O2SAT 100; BMI 21.9
--- NOTE | 2022-04-22 09:15 | ED_ITS ---
HPI - General Adult General Chief complaint: Skin/Abscess/Foreign Body Stated complaint: stitches open after surgery 2 wks ago Time Seen by Provider: 04/22/22 09:06 Source: patient Mode of arrival: ambulatory Limitations: no limitations History of Present Illness HPI narrative: 31-year-old female coming in today concerned about an abdominal incision. She has about 2 weeks postop a laparoscopic ovarian cyst removal according to her. Things have been going well except she has 1 incision on the abdomen that is not healed like the other ones. It is minimally tender. She also does have some nausea that comes and goes she is requesting a refill of nausea medication. No fevers or chills. No other concerns. Related Data Home Medications Medication Instructions Recorded Confirmed hydroxyzine HCl 25 mg tablet mg 04/22/22 ondansetron 4 mg disintegrating mg 04/22/22 tablet Previous Rx's Medication Instructions Recorded acetaminophen 325 mg tablet 975 mg PO Q8H PRN #100 tabs 04/09/22 ibuprofen 400 mg tablet 400 mg PO Q6H #120 tabs 04/09/22 oxycodone 5 mg tablet 5 - 10 mg PO Q4H PRN #20 tabs 04/09/22 sennosides 8.6 mg-docusate sodium 2 tab PO HS #20 tabs 04/09/22 50 mg tablet (Stool Softener-Laxative) ondansetron 4 mg disintegrating 4 mg PO Q6H #15 tabs 04/22/22 tablet Allergies Allergy/AdvReac Type Severity Reaction Status Date / Time amoxicillin Allergy Verified 04/22/22 08:53 erythromycin base Allergy Verified 04/22/22 08:53 fluoxetine [From Prozac] Allergy Verified 04/22/22 08:53 Penicillins Allergy Verified 04/22/22 08:53 Review of Systems Status of ROS: Reports: 6 or more systems reviewed and unremarkable except as noted in History and below PFSH PFS Medical History Anxiety and depression Health care directive on file IBS (irritable bowel syndrome) Pelvic pain Surgical History H/O foot surgery History of tonsillectomy Social History Narrative: 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 Her mother manages the [employer]. Highest level of school completed/degree received: Bachelor's degree Smoking Status: Never smoker Do you use any of these nicotine containing products: None Second hand tobacco smoke exposure: No How often do you have a drink containing alcohol: 2-3 times a week How many standard drinks containing alcohol do you have on a typical day: 1 or 2 How often do you have six or more drinks on one occasion: Less than monthly AUDIT-C Alcohol total score: 4 Non-prescribed substance use: denies use Caffeine: Yes (coffee) service: No Exam Narrative: Exam Narrative: Well-nourished well-developed patient in no acute distress. Alert and oriented. Answers questions appropriately. Mood and affect are appropriate. Thoughts are goal oriented and rational. No tangential or magical thinking noted. Patient speaks in full sentences without needing to catch their breath. Speech is not slurred or pressured. HEENT: Normocephalic atraumatic. Pupils are equally round reactive to light. Extraocular muscles are intact. Conjunctivae are moist without any icterus noted. Abdomen: Soft and with minimal tenderness around the incision sites, nondistended with normal bowel sounds. No guarding or rebound. She has 3 incisions on the anterior abdominal wall 2 of which have healed appropriately. The 3rd incision this skin is healing well unfortunately the skin is not approximated. There is no signs of infection, there is no drainage. The incision cannot be penetrated, therefore I do believe that the subcutaneous tissue and the abdominal wall have healed appropriately. Const: Vital Signs, click to edit/add: Vital Signs - 24 hr 04/22/22 08:47 Temperature 97.4 F L Pulse Rate [Right Pulse Oximeter] 57 L Respiratory Rate 16 Blood Pressure [Ri ght Upper Arm] 101/64 Pulse Oximetry 100 Oxygen Delivery Me thod Room Air Course Course Hospital Course: Did go ahead and put a Steri-Strip on the 1 incision to hold the skin closer together but allow drainage if needed. Vital Signs Vital signs: Initial Vital Signs Temperature 97.4 F L 04/22/22 08:47 Temperature Source Temporal Artery Scan 04/22/22 08:47 Pulse Rate 57 L 04/22/22 08:47 Pulse Rhythm 04/22/22 08:47 Respiratory Rate 16 04/22/22 08:47 Blood Pressure 101/64 04/22/22 08:47 Blood Pressure Mean 76 04/22/22 08:47 Blood Pressure Position Sitting 04/22/22 08:47 Pulse Oximetry 100 04/22/22 08:47 Oxygen Delivery Method 04/22/22 08:47 Vital Signs Temperature 97.4 F L 04/22/22 08:47 Pulse Rate 57 L 04/22/22 08:47 Respiratory Rate 16 04/22/22 08:47 Blood Pressure 101/64 04/22/22 08:47 Pulse Oximetry 100 04/22/22 08:47 Oxygen Delivery Method 04/22/22 08:47 Temperature 97.4 F L 04/22/22 08:47 Pulse Rate 57 L 04/22/22 08:47 Respiratory Rate 16 04/22/22 08:47 Blood Pressure 101/64 04/22/22 08:47 Pulse Oximetry 100 04/22/22 08:47 Oxygen Delivery Method 04/22/22 08:47 Medical Decision Making MDM Narrative Medical decision making narrative: Small, less than 9 mm, dehisced skin incision of the abdominal wall. Steri stripped in the ER today. Follow-up with surgeon as needed. Medical Records Medical records reviewed: Yes I reviewed the patient's medical records Discharge Plan Discharge Clinical Impression: Non-healing skin lesion Patient Disposition: Home, Self-Care Condition: Stable Additional Instructions: Keep Steri-Strips in place until it falls off on its own. Can trim the edges as a starts to peel off. Follow-up with your surgeon or primary care physician if the area becomes red, hot or has increased pain. Prescriptions: New ondansetron 4 mg tablet,disintegrating 4 mg PO Q6H Qty: 15 0RF No Action acetaminophen 325 mg Tablet 975 mg PO Q8H PRNQty: 100 0RF ibuprofen 400 mg tablet 400 mg PO Q6H Qty: 120 2RF oxycodone 5 mg Tablet 5 - 10 mg PO Q4H PRNQty: 20 0RF sennosides-docusate sodium [Stool Softener-Laxative] 8.6-50 mg Tablet 2 tab PO HS Qty: 20 0RF hydroxyzine HCl 25 mg tablet ondansetron 4 mg tablet,disintegrating Label Comments: ran out and would like another script for medication Follow Up/Referrals: Cole Roper MD [Primary Care Provider] - Stand Alone Forms: [employer] Info Instructions
== END 2022-04-22 09:28 | disposition home or self-care (01) ==
LOC: ED 09:27
PROVIDERS: Emergency Provider Family Medicine; PCP Family Medicine
DX: T81.31XA Disruption of external operation (surgical) wound, not elsewhere classified, initial encounter (principal)
CPT/HCPCS: 99283; 99284

== ENCOUNTER 2022-07-12 15:40 | Emergency (ER) | payer BC, SELFPAY ==
[2022-07-12 16:11] VITALS: BP 124/83; PULSE 63; RESP 20; TEMP 36.7; O2SAT 100; BMI 21.1
--- NOTE | 2022-07-12 16:39 | CRLHL7_ITS ---
For Patients: As a result of the Century Cures Act, medical imaging exams and procedure reports are released immediately into your electronic medical record. You may view this report before your referring provider. If you have questions, please contact your health care provider. INDICATION: Left lower quadrant pain. TECHNIQUE: Ultrasound pelvis transabdominal and transvaginal for better assessment or to better visualize the endometrium. Real-time sonographic images with spectral and color Doppler imaging of the ovaries were obtained. COMPARISON: April 07, 2022. FINDINGS: Uterus: 7.0 x 3.0 x 3.4 cm. Normal echotexture of the myometrium. No masses. Endometrium: Transvaginal imaging was performed to better evaluate the endometrium. Endometrial thickness measures 5 mm. No sign of endometrial mass or fluid. Right ovary 3.8 x 3.0 x 2.5 centimeters. Left ovary 4.3 x 2.5 x 2.8 centimeter. There is a mildly complex 1.9 centimeter mass in the left ovary, without internal vascularity. No ovarian or adnexal masses. Normal arterial and venous blood flow is demonstrated in both ovaries. Cul-de-sac: No significant free fluid. IMPRESSION: 1.2 centimeter mass in the left ovary without internal vascularity, mildly decreased in size since prior study and mildly more hyperechoic, favored to represent resolving corpus luteal cyst/residual hemorrhagic cyst. Recommend follow-up examination in 8-12 weeks. Otherwise, normal uterus and ovaries for age. Dictated by Raul Troncoso MD @ 07/12/2022 6:07:40 PM (Electronically Signed)
[2022-07-12 16:42] VITALS: BP 118/73; PULSE 70; RESP 20; TEMP 36.7; O2SAT 100
[2022-07-12 16:42] LABS: Appearance Urine Clear (Clear); Bilirubin Urine Negative (Negative); Blood Urine 2+ (Negative); Color Urine Yellow (Yellow); Glucose Urine Negative (Negative); Ketones Urine Negative (Negative); Leukocyte Esterase Urine Negative (Negative); Nitrite Urine Negative (Negative); Protein Urine Negative (Negative); Specific Gravity Urine 1.015 (1.000-1.030); Urobilinogen Urine 0.2 (0.2-1.0)
[2022-07-12 16:43] LABS: HCG Qualitative* Negative (Negative)
[2022-07-12 16:57] LABS: RBC Urine 0-2 (0-2); Squamous Epithelial Cell Urine Few (None-Few); WBC Urine 0-2 (0-5)
[2022-07-12 18:22] LABS: Basophils Absolute Auto 0.04 K/uL (0.00-0.30); Basophils Percent Auto 0.5 % (0.0-3.0); Eosinophils Absolute Auto 0.18 K/uL (0.00-0.50); Eosinophils Percent Auto 2.4 % (0.0-7.0); Hematocrit 39.9 % (33.0-51.0); Hemoglobin* 13.5 gm/dL (12.0-16.0); Immature Granulocytes Abs Auto 0.02 K/uL (0.00-0.30); Lymphocytes Absolute Auto 2.75 K/uL (0.90-2.90); Lymphocytes Percent Auto 36.4 % (20-44); Mean Corpuscular HGB Conc 34 gm/dL (32-36); Mean Corpuscular Hemoglobin 32 pg (26-34); Mean Corpuscular Volume 95 fL (80-100); Monocytes Percent Auto 8.5 % (0.0-11.0); Neutrophils Absolute Auto 3.92 K/uL (1.7-7.0); Neutrophils Percent Auto 51.9 % (42.0-72.0); Platelet Count* 265 K/uL (140-440); RDW Coefficient of Variation % 12.3 % (11.5-15.5); Red Blood Count 4.21 m/uL (4.00-5.20); White Blood Count* 7.55 K/uL (4.50-11.00)
--- NOTE | 2022-07-12 18:22 | ED.GENADULT ---
HPI - General Adult General Chief complaint: Abdominal Pain Stated complaint: Cyst rupture, bleeding nauseous Time Seen by Provider: 07/12/22 17:12 Source: patient Mode of arrival: ambulatory Limitations: no limitations History of Present Illness HPI narrative: 31-year-old female coming in today complaining of left lower quadrant abdominal pain that started yesterday. She has a history of ovarian cysts and she is quite concerned this is what is going on. She also had some vaginal bleeding earlier today that was darker in red than her normal period, her period is due in another week. She is sexually active, is actively trying to have a baby with her . She denies any fevers or chills. Related Data Home Medications Medication Instructions Recorded Confirmed hydroxyzine HCl 25 mg tablet mg 04/22/22 ondansetron 4 mg disintegrating mg 04/22/22 tablet trazodone 50 mg tablet 50 mg PO .Bedtime as needed PRN 05/01/22 07/12/22 amitriptyline 10 mg tablet 10 mg PO HS 07/12/22 07/12/22 Previous Rx's Medication Instructions Recorded acetaminophen 325 mg tablet 975 mg PO Q8H PRN #100 tabs 04/09/22 ibuprofen 400 mg tablet 400 mg PO Q6H #120 tabs 04/09/22 ondansetron 4 mg disintegrating 4 mg PO Q6H #15 tabs 04/22/22 tablet Allergies Allergy/AdvReac Type Severity Reaction Status Date / Time ondansetron Allergy Intermediate Verified 07/12/22 16:18 prochlorperazine Allergy Intermediate 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 Verified 07/12/22 16:18 wlies citalopram Allergy Mild Verified 07/12/22 16:18 penicillin V Allergy Mild Verified 07/12/22 16:18 amoxicillin Allergy Verified 07/12/22 16:18 erythromycin base Allergy Verified 07/12/22 16:18 fluoxetine [From Prozac] Allergy Verified 07/12/22 16:18 Penicillins Allergy Verified 07/12/22 16:18 Review of Systems Status of ROS: Reports: 10 or more systems reviewed and unremarkable except as noted in History and below [facility] Medical History Abdominal pain Anxiety and depression Health care directive on file IBS (irritable bowel syndrome) Pelvic pain Surgical History H/O foot surgery History of tonsillectomy Social History Narrative: 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 Her mother manages the [employer]. Highest level of school completed/degree received: Bachelor's degree Smoking Status: Never smoker Do you use any of these nicotine containing products: None Second hand tobacco smoke exposure: No How often do you have a drink containing alcohol: 2-3 times a week How many standard drinks containing alcohol do you have on a typical day: 1 or 2 How often do you have six or more drinks on one occasion: Less than monthly AUDIT-C Alcohol total score: 4 Non-prescribed substance use: denies use Caffeine: Yes (coffee) service: No Exam Narrative: Exam Narrative: Well-nourished well-developed patient in no acute distress but she is quite anxious. Alert and oriented. Answers questions appropriately. HEENT: Normocephalic atraumatic. Pupils are equally round reactive to light. Extraocular muscles are intact. Conjunctivae are moist without any icterus noted. Moist mucous membranes. Posterior pharynx is normal. Neck is soft without any lymphadenopathy or thyromegaly. No masses are appreciated. Cardiovascular: Heart is regular rate and rhythm S1 and S2 are present without any murmurs. Lungs: Clear to auscultation bilaterally no wheezes rhonchi or rales are appreciated. Patient takes deep breaths without any discomfort. Abdomen: Soft and nondistended with normal bowel sounds. Patient complains of tenderness to light touch anywhere on the abdominal wall, but she can be distracted. She does seem to be truly uncomfortable in the left lower quadrant. Extremities: Bilateral lower extremities are without edema. Normal DP and PT pulses. Skin: Well perfused without any obvious rashes. Const: Vital Signs, click to edit/add: Vital Signs - 24 hr 07/12/22 16:11 Temperature 98.0 F Pulse Rate [Right Pulse Oximeter] 63 Respiratory Rate 20 Blood Pressure [Ri ght Upper Arm] 124/83 Pulse Oximetry 100 Oxygen Delivery Me thod Room Air Course Course Hospital Course: Lab work was unremarkable, urine showed blood as expected. Abdominal ultrasound showed a left-sided ovarian cyst. Vital Signs Vital signs: Initial Vital Signs Temperature 98.0 F 07/12/22 16:11 Temperature Source Temporal Artery Scan 07/12/22 16:11 Pulse Rate 63 07/12/22 16:11 Respiratory Rate 20 07/12/22 16:11 Blood Pressure 124/83 07/12/22 16:11 Blood Pressure Mean 96 07/12/22 16:11 Blood Pressure Position Sitting 07/12/22 16:11 Pulse Oximetry 100 07/12/22 16:11 Oxygen Delivery Method 07/12/22 16:11 Vital Signs Temperature 98.0 F 07/12/22 16:11 Pulse Rate 63 07/12/22 16:11 Respiratory Rate 20 07/12/22 16:11 Blood Pressure 124/83 07/12/22 16:11 Pulse Oximetry 100 07/12/22 16:11 Oxygen Delivery Method 07/12/22 16:11 Temperature 98.0 F 07/12/22 16:11 Pulse Rate 63 07/12/22 16:11 Respiratory Rate 20 07/12/22 16:11 Blood Pressure 124/83 07/12/22 16:11 Pulse Oximetry 100 07/12/22 16:11 Oxygen Delivery Method 07/12/22 16:11 Medical Decision Making MDM Narrative Medical decision making narrative: 31-year-old female who left-sided ovarian cyst. Recommend repeat ultrasound in 8-12 weeks. We discussed following up with her OBGYN to discuss control given that she has a history of painful ovarian cyst. Patient was agreeable had no other questions. Lab Data Lab results reviewed: Yes I reviewed the patient's lab results Labs: Lab Results 07/12/22 07/12/22 07/12/22 Range/Units 16:35 18:16 18:16 WBC 7.55 (4.50-11.00) K/uL RBC 4.21 (4.00-5.20) m/uL Hgb 13.5 (12.0-16.0) gm/dL Hct 39.9 (33.0-51.0) % MCV 95 (80-100) fL MCH 32 (26-34) pg MCHC 34 (32-36) gm/dL RDW Coeff of Thomas 12.3 (11.5-15.5) % Plt Count 265 (140-440) K/uL Neut % (Auto) 51.9 (42.0-72.0) % Lymph % (Auto) 36.4 (20-44) % Richardson % (Auto) 8.5 (0.0-11.0) % Eos % (Auto) 2.4 (0.0-7.0) % Baso % (Auto) 0.5 (0.0-3.0) % Neut # (Auto) 3.92 (1.7-7.0) K/uL Lymph # (Auto) 2.75 (0.90-2.90) K/uL Richardson # (Auto) 0.60 (0.00-0.90) K/UL Eos # (Auto) 0.18 (0.00-0.50) K/uL Baso # (Auto) 0.04 (0.00-0.30) K/uL Abs Immat Gran (auto) 0.02 (0.00-0.30) K/uL Sodium 139 (135-149) mmol/L Potassium 4.2 (3.6-5.1) mmol/L Chloride 104 (96-114) mmol/L Carbon Dioxide 26 (20-32) mmol/L BUN 12 (5-24) mg/dL Creatinine 0.7 (0.5-1.5) mg/dL Estimated Creat Clear 113.60 Estimated GFR 119 ml/min Glucose 80 (60-115) mg/dL Calcium 8.9 (8.4-10.6) mg/dL Total Bilirubin 0.4 (0.1-1.5) mg/dL Direct Bilirubin 0.0 (0.0-0.5) mg/dL AST 23 (12-35) U/L ALT 18 (4-35) U/L Alkaline Phosphatase 77 (40-150) U/L C-Reactive Protein < 0.5 L (0.5-1.0) mg/dL Total Protein 6.7 (6.0-8.3) g/dL Albumin 4.5 (3.3-5.0) g/dL Lipase 98 (23-300) U/L HCG, Qual Negative (Negative) Urine Color Yellow (Yellow) Urine Appearance Clear (Clear) Urine pH 7.0 (5.0-8.5) Ur Specific [place] 1.015 (1.000-1.030) Urine Protein Negative (Negative) Urine Glucose (UA) Negative (Negative) Urine Ketones Negative (Negative) Urine Blood 2+ A (Negative) Urine Nitrite Negative (Negative) Urine Bilirubin Negative (Negative) Urine Urobilinogen 0.2 (0.2-1.0) Ur Leukocyte Esterase Negative (Negative) Urine RBC 0-2 (0-2) Urine WBC 0-2 (0-5) Ur Squamous Epith Cells Few (None-Few) Urine Bacteria None (None) Imaging Data US - abdomen: Attestation: I have reviewed the pertinent imaging results. Radiologist's impression: Left lower quadrant pain. TECHNIQUE: Ultrasound pelvis transabdominal and transvaginal for better assessment or to better visualize the endometrium. Real-time sonographic images with spectral and color Doppler imaging of the ovaries were obtained. COMPARISON: April 07, 2022. FINDINGS: Uterus: 7.0 x 3.0 x 3.4 cm. Normal echotexture of the myometrium. No masses. Endometrium: Transvaginal imaging was performed to better evaluate the endometrium. Endometrial thickness measures 5 mm. No sign of endometrial mass or fluid. Right ovary 3.8 x 3.0 x 2.5 centimeters. Left ovary 4.3 x 2.5 x 2.8 centimeter. There is a mildly complex 1.9 centimeter mass in the left ovary, without internal vascularity. No ovarian or adnexal masses. Normal arterial and venous blood flow is demonstrated in both ovaries. Cul-de-sac: No significant free fluid. IMPRESSION: 1.2 centimeter mass in the left ovary without internal vascularity, mildly decreased in size since prior study and mildly more hyperechoic, favored to represent resolving corpus luteal cyst/residual hemorrhagic cyst. Recommend follow-up examination in 8-12 weeks. Discharge Plan Discharge Clinical Impression: Ovarian cyst Patient Disposition: Home, Self-Care Condition: Stable Additional Instructions: Okay to use ibuprofen or Tylenol as needed for pain. Okay to use a heating pad to the area. Do not apply heat directly to skin. Pain from ovarian cysts can last 6-8 weeks. Recommend he follow-up with your OBGYN to discuss control. Recommend a repeat ultrasound of the left ovary in 8-12 weeks. Prescriptions: No Action trazodone 50 mg tablet 50 mg PO .Bedtime as needed PRN acetaminophen 325 mg Tablet 975 mg PO Q8H PRNQty: 100 0RF ibuprofen 400 mg tablet 400 mg PO Q6H Qty: 120 2RF hydroxyzine HCl 25 mg tablet Hold Instructions: stopped ondansetron 4 mg tablet,disintegrating Label Comments: ran out and would like another script for medication ondansetron 4 mg tablet,disintegrating 4 mg PO Q6H Qty: 15 0RF amitriptyline 10 mg tablet 10 mg PO HS Follow Up/Referrals: Cole Roper MD [Primary Care Provider] - Stand Alone Forms: Noah Info Instructions
[2022-07-12 18:24] LABS: Slide Review Reflex No
[2022-07-12 18:34] LABS: Albumin* 4.5 g/dL (3.3-5.0); Chloride* 104 mmol/L (96-114)
[2022-07-12 18:35] LABS: Potassium* 4.2 mmol/L (3.6-5.1); Sodium* 139 mmol/L (135-149)
[2022-07-12 18:37] LABS: Creatinine* 0.7 mg/dL (0.5-1.5); Estimated Glomerular Filt Rate 119 ml/min
[2022-07-12 18:38] LABS: Alanine Aminotransferase* 18 U/L (4-35); Alkaline Phosphatase* 77 U/L (40-150); Aspartate Amino Transferase* 23 U/L (12-35); Bilirubin Total* 0.4 mg/dL (0.1-1.5); Blood Urea Nitrogen* 12 mg/dL (5-24); Calcium* 8.9 mg/dL (8.4-10.6); Carbon Dioxide* 26 mmol/L (20-32); Glucose* 80 mg/dL (60-115); Lipase* 98 U/L (23-300); Total Protein* 6.7 g/dL (6.0-8.3)
[2022-07-12 18:43] LABS: C Reactive Protein* < 0.5 mg/dL (0.5-1.0)
[2022-07-12 19:25] LABS: Erythrocyte SedimentationRate* 2 mm/hr (2-20)
[2022-07-12 19:37] VITALS: BP 118/73; PULSE 70; RESP 20; TEMP 36.7
== END 2022-07-12 19:39 | disposition home or self-care (01) ==
PROVIDERS: Emergency Provider Family Medicine; PCP Family Medicine
DX: N83.202 Unspecified ovarian cyst, left side (principal)
CPT/HCPCS: 36415; 76830; 80048; 80076; 81001; 83690; 84703; 85025; 85651; 86140; 87086; 93976; 99284

== ENCOUNTER 2023-03-13 07:56 | Outpatient (CLI) | payer BC, SELFPAY ==
--- NOTE | 2023-03-13 08:15 | CRLHL7_ITS ---
For Patients: As a result of the Century Cures Act, medical imaging exams and procedure reports are released immediately into your electronic medical record. You may view this report before your referring provider. If you have questions, please contact your health care provider. Indication: Left hip pain Comparison: 11/19/2017 Procedure : Informed consent was obtained. The site was marked. Time-out was performed. The skin of the left hip was cleansed with ChloraPrep. A sterile drape was placed. 8 cc of 1 percent lidocaine was administered for superficial anesthesia. Subsequently a 22 gauge spinal needle was introduced into the left hip joint under intermittent fluoroscopic guidance. Injection of 2 cc nonionic Omnipaque 240 contrast confirmed intra-articular location. Subsequently 11 cc of dilute gadolinium were injected. The needle was removed and hemostasis achieved with direct pressure. A dressing was placed. The patient was sent to MRI following a brief respite following the procedure due to feeling lightheaded. Total fluoroscopy time 21 seconds. Impression: Successful fluoroscopically guided left hip arthrogram for MRI. Dictated by Hai Darling MD @ 03/13/2023 3:31:52 PM (Electronically Signed)
--- NOTE | 2023-03-13 09:15 | CRLHL7_ITS ---
For Patients: As a result of the Century Cures Act, medical imaging exams and procedure reports are released immediately into your electronic medical record. You may view this report before your referring provider. If you have questions, please contact your health care provider. INDICATION: Chronic left hip pain. COMPARISON: Left hip MRI arthrogram 11/19/2017. TECHNIQUE : Following a left hip arthrogram using dilute gadolinium solution, MRI scan of the pelvis and left hip was performed. FINDINGS : There is a tiny focal fissure/defect within the articular cartilage of the lateral aspect of the left acetabulum seen on coronal images 14 and 15 of series 4. The articular cartilage throughout the remainder of the left hip joint is normal. No tear of the left acetabular labrum is identified. The bone marrow signal throughout the left hip and remainder of the pelvis is normal. No fracture or osteonecrosis is identified. The sacroiliac joints, pubic symphysis and right hip joint are normal in appearance. The muscles and other soft tissues of the pelvis and both hips and both hip girdles are unremarkable. No intrapelvic abnormality is identified. Impression : 1. No acute abnormality. 2. Tiny focal fissure/defect within the articular cartilage of the lateral aspect of the left acetabulum. Dictated by Eleazar Jackson MD @ 03/14/2023 2:12:15 PM (Electronically Signed)
== END 2023-03-13 07:57 | disposition home or self-care (01) ==
LOC: RAD 07:57
PROVIDERS: PCP Family Medicine; Visit Provider Family Medicine
DX: M25.552 Pain in left hip (principal); S73.192S Other sprain of left hip, sequela
CPT/HCPCS: 27093; 73525; 73722; A9575

== ENCOUNTER 2023-04-24 08:30 | Outpatient (CLI) | payer BC, SELFPAY | END 2023-04-24 08:31 | disposition home or self-care (01) | LOC: NFLDREF 04-25 06:55 | PROVIDERS: PCP Family Medicine; Referring Provider Family Medicine; Visit Provider Registered Nurse | DX: N97.9 Female infertility, unspecified (principal) | CPT/HCPCS: 84144; 84443 ==

== ENCOUNTER 2023-05-02 08:03 | Outpatient (CLI) | payer BC, SELFPAY | END 2023-05-02 08:04 | disposition home or self-care (01) | LOC: NFLDREF 05-07 10:41 | PROVIDERS: PCP Family Medicine; Referring Provider Family Medicine; Visit Provider Registered Nurse | DX: N97.9 Female infertility, unspecified (principal) | CPT/HCPCS: 82670; 83001 ==

== ENCOUNTER 2023-05-07 10:04 | Outpatient (CLI) | payer BC, SELFPAY ==
--- NOTE | 2023-05-07 10:45 | CRLHL7_ITS ---
For Patients: As a result of the Century Cures Act, medical imaging exams and procedure reports are released immediately into your electronic medical record. You may view this report before your referring provider. If you have questions, please contact your health care provider. INDICATION: Fertility evaluation. TECHNIQUE: Fluoroscopically-guided hysterosalpingogram performed in conjunction with the staff from [facility]. FINDINGS: Free spill of contrast from the left fallopian tube. The uterus is unremarkable. Nonvisualization of the right fallopian tube. 0.53 minutes fluoroscopy time utilized. IMPRESSION : Nonvisualization/nonopacification of the right fallopian tube. Patent left fallopian tube. Grossly unremarkable uterus. Dictated by Toño Washington MD @ 05/07/2023 7:54:26 PM (Electronically Signed)
--- NOTE | 2023-05-07 12:14 | P.GYNPRC_ITS ---
Procedure Note Time Seen by Provider: 12:00 Date of procedure: 05/07/23 Surgeon: Shereen Nascimento MD Procedure Description: DATE: 05/07/2023 PREPROCEDURE DIAGNOSIS: Infertility POSTPROCEDURE DIAGNOSIS: 1. Infertility 2. Blocked right fallopian tube. Patent left fallopian tube. NAME OF PROCEDURE: Hysterosalpingogram. ANESTHESIA: None. COMPLICATIONS: None. PROCEDURE: After obtaining consent, the patient was placed in the dorsal lith otomy position on the x-ray table. Lidocaine jelly was inserted into the vaginal introitus. An open-sided bivalve speculum was introduced into the vagina and the cervix easily visualized. The cervix was sprayed with Hurricaine spray and time was given for the Hurricaine spray to take effect. The cervix and vagina were then prepped with Betadinex4. The anterior lip of the cervix was grasped with a single-tooth tenaculum for traction. Os binder/cervical dilator used: No. A balloon tipped double-lumen catheter was then gently inserted through the cervical opening into the uterine cavity to the level of the fundus. The balloon was insufflated with 3 mL of air. Patient legs started shaking and she became stiff. The tenaculum and speculum were removed. The patient came to and was more relaxed after the instruments were removed. She desired moving forwards with the procedure.The patient was repositioned in the supine position, covered, and the radiologist was called to the room. A hysterosalpingogram was then performed. A total of 20 cc of Optiray 300 water soluble contrast dye was injected through the double-lumen catheter under moderate pressure. There was immediate fill of the uterine cavity to the cornua and immediate fill of left fallopian tube and free spillage of dye on left side. Right side did not have spill. The occlusion appeared proximal. The balloon was deflated. The catheter was removed. Overall, the patient tolerated the procedure well with the support of her mom. She did have moderate cramping discomfort during and just after the procedure. She was discharged to home in stable condition and make an appointment with her physician to review all of her lab results and procedure results.
== END 2023-05-07 10:05 | disposition home or self-care (01) ==
LOC: RAD 10:05
PROVIDERS: PCP Family Medicine; Visit Provider Obstetrics & Gynecology
DX: N97.9 Female infertility, unspecified (principal)
CPT/HCPCS: 58340; 74740; A4649; Q9967

== ENCOUNTER 2023-05-13 16:20 | Outpatient (CLI) | payer BC, SELFPAY | END 2023-05-13 16:21 | disposition home or self-care (01) | LOC: NFLDREF 16:20 | PROVIDERS: PCP Family Medicine; Visit Provider Registered Nurse | DX: Z01.419 Encounter for gynecological examination (general) (routine) without abnormal findings (principal); Z13.6 Encounter for screening for cardiovascular disorders | CPT/HCPCS: 80061 ==

== ENCOUNTER 2024-04-26 15:00 | Outpatient (RCR) | payer BC, OTHER, SELFPAY | END 2024-08-24 23:59 | disposition home or self-care (01) | PROVIDERS: PCP Family Medicine; Visit Provider Internal Medicine Gastroenterology | DX: M99.05 Segmental and somatic dysfunction of pelvic region (principal); M62.89 Other specified disorders of muscle; R15.2 Fecal urgency; R10.2 Pelvic and perineal pain; R27.8 Other lack of coordination; Z51.89 Encounter for other specified aftercare | CPT/HCPCS: 97110; 97112; 97140; 97535 ==

== ENCOUNTER 2024-05-12 08:42 | Emergency (ER) | payer OTHER, SELFPAY ==
[2024-05-12 08:48] VITALS: BP 118/73; PULSE 67; RESP 20; TEMP 37.2; O2SAT 99; BMI 21.0
[2024-05-12 09:02] VITALS: O2SAT 98
--- NOTE | 2024-05-12 09:02 | ED_ITS ---
HPI - General Time Seen by Provider: 09:02 Date Seen: 05/12/24 Chief complaint: Vaginal Bleeding Stated complaint: 11wks PG bleeding Time Seen by Provider: 05/12/24 08:43 Source: patient and RN notes reviewed Mode of arrival: ambulatory Limitations: no limitations History of Present Illness HPI Narrative: This very pleasant 33-year-old female is coming in with vaginal bleeding about 11 and half weeks into her . This is her 1st . They had infertility issues, she had a blocked fallopian tube. The did use medication reportedly to get , had early ultrasound about 7 weeks confirming . Her last menstrual period was 02/21/2024. She has estimated date of delivery of 11/27/2024 based on ultrasound. She sees Dr. Waite at [facility]. She did note increased vaginal discharge and went to urgent care there this weekend. She has a bit no treatment based on urinalysis and wet prep. She did have a follow-up appointment and was told that the discharge was probably normal related. She had some light spotting yesterday, cramping last night. This morning when she woke up and went to the bathroom she had a lot of blood with wiping, had some blood in the toilet. She is not having any abdominal pain or cramping right now. They believe that she was told she had a subchorionic hemorrhage on prior imaging. This is her 1st . Related Data Home Medications ?Medication ?Instructions ?Recorded ?Confirmed docosahexaenoic acid 200 mg mg PO 04/18/23 05/08/24 capsule ( DHA) Allergies Allergy/AdvReac Type Severity Reaction Status Date / Time ondansetron Allergy Intermediate Verified 05/08/24 13:57 prochlorperazine Allergy Intermediate Creepy-aircraft structure mechanic Verified 05/08/24 13:57 wlies citalopram Allergy Mild Verified 05/08/24 13:57 penicillin V Allergy Mild Verified 05/08/24 13:57 amoxicillin Allergy Verified 05/08/24 13:57 erythromycin base Allergy Verified 05/08/24 13:57 fluoxetine [From Prozac] Allergy Verified 05/08/24 13:57 Penicillins Allergy Verified 05/08/24 13:57 Review of Systems Status of ROS: Reports: 6 or more systems reviewed and unremarkable except as noted in History and below [facility] Medical History Abdominal pain ?R10.9 - Unspecified abdominal pain (ICD-10) Abdominal pain, acute ?R10.9 - Unspecified abdominal pain (ICD-10) Health care directive on file ?Z78.9 - Other specified health status (ICD-10) Anxiety and depression ?F41.9 - Anxiety disorder, unspecified (ICD-10) ?F32.A - Depression, unspecified (ICD-10) IBS (irritable bowel syndrome) ?K58.9 - Irritable bowel syndrome without diarrhea (ICD-10) Pelvic pain ?R10.2 - Pelvic and perineal pain (ICD-10) Surgical History S/P exploratory laparotomy (04/08/22) ?Z98.890 - Other specified postprocedural states (ICD-10) H/O foot surgery ?Z98.890 - Other specified postprocedural states (ICD-10) History of tonsillectomy ?Z90.89 - Acquired absence of other organs (ICD-10) Family History Grandmother Diabetes Breast cancer Grandfather Diabetes Stroke Grandmother Breast cancer Father High cholesterol Family/Other Diabetes Family/Other Alcohol dependence Social History Narrative: 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 Her mother manages the [employer]. What is your current living situation?: I presently have a place to live Problems where you live: no known problems In the past 12 months, utilities in danger of being shut off: no In past 12 months, lack of transportation kept you from medical appts, meetings, work, or getting things needed for daily living: no In the past 12 mos, have been you worried that your food would run out before you had money to buy more?: never true In the past 12 mos, the food you bought just didn't last and you didn't have money to buy more?: never true Highest level of school completed/degree received: Bachelor's degree Smoking Status: Never smoker Do you use any of these nicotine containing products: None Second hand tobacco smoke exposure: No How often do you have a drink containing alcohol: 2-3 times a week How many standard drinks containing alcohol do you have on a typical day: 1 or 2 How often do you have six or more drinks on one occasion: Less than monthly AUDIT-C Alcohol total score: 4 Non-prescribed substance use: denies use Caffeine: Yes (coffee) How often does anyone, including family, friends and others, physically hurt you : never How often does anyone, including family, friends and others, insult or talk down to you: never How often does anyone, including family, friends and others, threaten you with harm: never How often does anyone, including family, friends and others, scream or curse at you: never Little interest or pleasure in doing things: several days Feeling down, depressed, or hopeless: several days service: No Exam Const: Vital Signs, click to edit/add: Vital Signs - 24 hr 05/12/24 08:48 05/12/24 09:02 Temperature 99 F Pulse Rate [Pulse Oximeter] 67 Respiratory Rate 20 Blood Pressure [Ri ght Upper Arm] 118/73 Pulse Oximetry 99 98 Oxygen Delivery Me thod Room Air 33-year-old female that is very pleasant but obviously anxious and frightened, tearful. Alert, interactive. Pupils equal round, sclera clear. Speech normal. Lungs are clear, good air entry, no wheezing or crackles or tachypnea. CV regular rate and rhythm, no murmur, normal S1-S2, no S3-S4. Abdomen is soft, nontender, nondistended, no rebound or guarding. Pelvic exam deferred at this p oint. Documenting provider has reviewed patient's vital signs: yes Course Course ED Course: Reviewed with patient that the workup does include obtaining blood work, we will get a pelvic ultrasound. She may need further pelvic evaluation but we will obtain pelvic ultrasound 1st. We did discuss that there can be alternate bleeding causes that do not signify miscarriage. Certainly threatened miscarriage is 1 of the possibilities as well. We will obtain ultrasound to see what the imaging shows us. Reevaluation(s) Time of Reevaluation #1: 11:06 Reevaluation #1: Unfortunately I had to review with patient that the hCG level is quite low, ultrasound showing no heartbeat. She is unfortunately is having a miscarriage. They are very obviously distressed in sad about this news. They understand that they will be talking to Dr. Marinelli regarding her options for further management. Time of Reevaluation #2: 12:13 Reevaluation #2: Patient has consulted with Obstetrics, she has decided that she would like to do oral medication and go home. Have contacted Dr. Marinelli. She will get this arranged and will plan on discharging patient to home. Time of Reevaluation #3: 12:35 Reevaluation #3: Dr. Marinelli is back talking to the patient. Plan will be to discharge, she is reviewed this with her. She will be ordering misoprostol and oxycodone for pain management for the patient. Consultations Consultation #1: Did speak with Dr. Waite regarding her patient. I will discuss with OB Gyne. Did want Dr. Waite aware of her patient's situation however. Time: 10:50 Vital Signs Vital signs: Initial Vital Signs Temperature 99 F 05/12/24 08:48 Temperature Source Temporal Artery Scan 05/12/24 08:48 Pulse Rate 67 05/12/24 08:48 Respiratory Rate 20 05/12/24 08:48 Blood Pressure 118/73 05/12/24 08:48 Blood Pressure Mean 88 05/12/24 08:48 Blood Pressure Position Sitting 05/12/24 08:48 Pulse Oximetry 99 05/12/24 08:48 Oxygen Delivery Method Room Air 05/12/24 08:48 Vital Signs Temperature 99 F 05/12/24 08:48 Pulse Rate 67 05/12/24 08:48 Respiratory Rate 20 05/12/24 08:48 Blood Pressure 118/73 05/12/24 08:48 Pulse Oximetry 99 05/12/24 08:48 Oxygen Delivery Method Room Air 05/12/24 08:48 Temperature 99 F 05/12/24 08:48 Pulse Rate 67 05/12/24 08:48 Respiratory Rate 20 05/12/24 08:48 Blood Pressure 118/73 05/12/24 08:48 Pulse Oximetry 98 05/12/24 09:02 Oxygen Delivery Method Room Air 05/12/24 08:48 MDM - OB/Uterine Contractions Lab Data Attestation: I reviewed the patient's lab results. Labs: Lab Results 05/12/24 Range/Units 09:12 WBC 9.51 (4.50-11.00) K/uL RBC 4.55 (4.00-5.20) m/uL Hgb 14.3 (12.0-16.0) gm/dL Hct 42.9 (33.0-51.0) % MCV 94 (80-100) fL MCH 31 (26-34) pg MCHC 33 (32-36) gm/dL RDW Coeff of Thomas 12.1 (11.5-15.5) % Plt Count 263 (140-440) K/uL Neut % (Auto) 69.8 (42.0-72.0) % Lymph % (Auto) 20.2 (20-44) % Wood % (Auto) 7.7 (0.0-11.0) % Eos % (Auto) 1.2 (0.0-7.0) % Baso % (Auto) 0.3 (0.0-3.0) % Neut # (Auto) 6.64 (1.7-7.0) K/uL Lymph # (Auto) 1.92 (0.90-2.90) K/uL Wood # (Auto) 0.70 (0.00-0.90) K/UL Eos # (Auto) 0.11 (0.00-0.50) K/uL Baso # (Auto) 0.03 (0.00-0.30) K/uL Abs Immat Gran (auto) 0.08 (0.00-0.30) K/uL Imm/Tot Granulo (auto) 0.8 % Sodium 138 (135-149) mmol/L Potassium 4.0 (3.6-5.1) mmol/L Chloride 105 (96-114) mmol/L Carbon Dioxide 25 (20-32) mmol/L Anion Gap 8 (7-15) mEq/L BUN 9 (5-24) mg/dL Creatinine 0.6 (0.5-1.5) mg/dL Estimated Creat Clear 129.16 Estimated GFR 122 ml/min Glucose 89 (60-115) mg/dL Calcium 9.3 (8.4-10.6) mg/dL HCG, Quant 3135.20 mIU/mL Blood Type B Positive Imaging Data US OB: Attestation: I have reviewed the pertinent imaging results. Radiologist's impression: Patient: BRUNO HAGEN Facility:?[facility] Patient ID:?[id number] Site Patient ID:?[id number]. Site :?[id number] Study:?US-OB Pelvis -05/12/2024 10:53:10 AM Ordering Physician:?Francisco Layne Final Report: INDICATION: , bleeding TECHNIQUE: Ultrasound OB pelvis transabdominal. Real-time mak-scale imaging of the pelvis was performed. COMPARISON: None FINDINGS: Single intrauterine gestation is identified with a crown-rump length of 9 weeks 2 days. No cardiac activity is identified by M-mode or color Doppler imaging. Maternal ovaries unremarkable. IMPRESSION: Single intrauterine gestation corresponding to 9 weeks 2 days without cardiac activity. Appearance is consistent with demise. Preliminary interpretation given by the network strategist to the ED at the time of the study. Dictated by Miguel Condon MD @ 05/12/2024 10:58:28 AM (Electronic Signature) Discharge Plan Discharge Clinical Impression: Miscarriage at 8 to 28 weeks gestation Patient Disposition: Home, Self-Care Condition: Stable Instructions: Miscarriage (ED) Additional Instructions: Discharge instructions per Dr. Marinelli Prescriptions: No Action DHA 200 mg capsule PO Follow Up/Referrals: Cole Roper MD [Referring] - Stand Alone Forms: [facility] Info Instructions
--- NOTE | 2024-05-12 09:07 | CRLHL7_ITS ---
For Patients: As a result of the Century Cures Act, medical imaging exams and procedure reports are released immediately into your electronic medical record. You may view this report before your referring provider. If you have questions, please contact your health care provider. INDICATION: , bleeding TECHNIQUE: Ultrasound OB pelvis transabdominal. Real-time mak-scale imaging of the pelvis was performed. COMPARISON: None FINDINGS: Single intrauterine gestation is identified with a crown-rump length of 9 weeks 2 days. No cardiac activity is identified by M-mode or color Doppler imaging. Maternal ovaries unremarkable. IMPRESSION: Single intrauterine gestation corresponding to 9 weeks 2 days without cardiac activity. Appearance is consistent with demise. Preliminary interpretation given by the guest experience specialist to the ED at the time of the study. Dictated by Miguel Condon MD @ 05/12/2024 10:58:28 AM (Electronically Signed)
[2024-05-12 09:25] LABS: Basophils Absolute Auto 0.03 K/uL (0.00-0.30); Basophils Percent Auto 0.3 % (0.0-3.0); Eosinophils Absolute Auto 0.11 K/uL (0.00-0.50); Eosinophils Percent Auto 1.2 % (0.0-7.0); Hematocrit 42.9 % (33.0-51.0); Hemoglobin* 14.3 gm/dL (12.0-16.0); Immature Granulocytes Abs Auto 0.08 K/uL (0.00-0.30); Immature Granulocytes Pct Auto 0.8 %; Lymphocytes Absolute Auto 1.92 K/uL (0.90-2.90); Lymphocytes Percent Auto 20.2 % (20-44); Mean Corpuscular HGB Conc 33 gm/dL (32-36); Mean Corpuscular Hemoglobin 31 pg (26-34); Mean Corpuscular Volume 94 fL (80-100); Monocytes Percent Auto 7.7 % (0.0-11.0); Neutrophils Absolute Auto 6.64 K/uL (1.7-7.0); Neutrophils Percent Auto 69.8 % (42.0-72.0); Platelet Count* 263 K/uL (140-440); RDW Coefficient of Variation % 12.1 % (11.5-15.5); Red Blood Count 4.55 m/uL (4.00-5.20); White Blood Count* 9.51 K/uL (4.50-11.00)
[2024-05-12 09:38] LABS: Chloride* 105 mmol/L (96-114); Sodium* 138 mmol/L (135-149)
[2024-05-12 09:41] LABS: Anion Gap 8 mEq/L (7-15); Blood Urea Nitrogen* 9 mg/dL (5-24); Calcium* 9.3 mg/dL (8.4-10.6); Carbon Dioxide* 25 mmol/L (20-32); Creatinine* 0.6 mg/dL (0.5-1.5); Est. Creatinine Clearance* 129.16; Estimated Glomerular Filt Rate 122 ml/min; Glucose* 89 mg/dL (60-115)
[2024-05-12 10:47] LABS: Slide Review Reflex No
== END 2024-05-12 12:38 | disposition home or self-care (01) ==
PROVIDERS: Emergency Provider Family Medicine; PCP Family Medicine
DX: O03.9 Complete or unspecified spontaneous abortion without complication (principal)
CPT/HCPCS: 36415; 76815; 80048; 84702; 85025; 86900; 86901; 94761; 99284

== ENCOUNTER 2024-10-14 10:57 | Emergency (ER) | payer OTHER, SELFPAY ==
--- OUTSIDE RECORDS SUMMARY | 2024-10-14 11:00 | XMS_ITS | Clinical Summary ---
Author Organization [facility] Address [place], [place] [address] Care Team Providers Care Fans Clerk Name Role Phone Irma Perez Primary Care Provider [phone] Vaishnavi Lopez [facility] Ac Unavailable + Allergies Active Allergy Reactions Criticality Noted Date Comments Amoxicillin Hives 10/30/2007 Erythromycin Itching 09/22/2008 Optical ointment. Caused itching, burning eyes Penicillins Hives 10/30/2007 Prochlorperazine Itching High 07/12/2022 Fluoxetine Other - Describe In Comment Field 06/21/2008 shakiness Medications hyoscyamine Sulfate (LEVSIN ODT) 0.125 mg tabletIndications: Irritable bowel syndrome with diarrhea Place 1 tablet on the tongue every 4 hours if needed for Colic. 40 tablet 5 0 Active multivit with min-folic acid (Women's Multivitamin Gummies) 200 mcg chew 1 Active 21/iron fu/folic acid ( COMPLETE ORAL) Take by mouth. Activ e oxyCODONE (ROXICODONE) 5 mg immediate release tabletIndications: Miscarriage Take 1 Tablet (5 mg) by mouth every 4 hours if needed for Pain. 10 Tablet 4 Active ondansetron (ZOFRAN ODT) 4 mg disintegrating tabletIndications: Miscarriage Place 1 Tablet (4 mg) on the tongue every 8 hours if needed for Nausea/Vomitin g. 30 Tablet 4 Active aspirin (ECOTRIN) 81 mg enteric coated tabletIndications: Garber recommended Take 81 mg by mouth once daily. Active vit 77-ppxr-ginvj-dha 27mg iron- 800 mcg-250 mg capIndications:pre gnancy Take 1 Tablet by mouth. Patient reports taking an additional 200 mg of DHA Active Active Problems Problem Noted Date Diagnosed Date 10/04/2024 Overview (10/04/2024): Estimated Date of Delivery: 05/23/25 Patient's last menstrual period was 08/16/2024 (exact date). GBS: 28wk labs: Last Tdap: 04/14/14 Last Flu vaccine: 10/06/19 OB Labs: 1st Trimester: 10/04/24 Allergies Allergen Reactions Prochlorperazine Itching Amoxicillin Hives Erythromycin Itching Optical ointment. Caused itching, burning eyes Penicillins Hives Prozac [Fluoxetine] Other - Describe In Comment Field shakiness OB History Para Term AB Living 3 0 0 0 2 0 SAB IAB Ectopic Multiple Live Births 2 0 0 0 0 # Outcome Date GA Lbr Juan/2nd Weight Sex Type Anes PTL Lv 3 Current 2 SAB 05/12/24 11w4d SPONTANEOUS Comments: fetus measured 9w, no FHTs 1 SAB 12/2023 SPONTANEOUS Comments: Biochemical SA per [facility] Past Medical History: . Date 9 weeks gestation of 04/29/2024 Estimated Date of Delivery: 11/27/24 Patient's last menstrual period was 02/21/2024 (exact date). GBS: 28wk labs: Last Tdap: 04/14/14 Last Flu vaccine: 10/06/2019 OB Labs: Allergies Allergen Reactions Prochlorperazine Itching Amoxicillin Hives Erythromycin Itching Optical ointment Anesthesia complication 11/19/2007 Patient reports she stopped breathing during bunion surgery Anxiety state, unspecified 01/24/2012 Bunion 11/19/2007 Generalized anxiety disorder 10/01/2007 Head injury, unspecified 10/16/2005 History of intrauterine in previous SAB in 01/06 and 05/12/24 Infertility, female Major depressive disorder, recurrent episode, unspecified 09/13/2008 Other acne 07/06/2009 Syncope with shots and nasal swab Varicella Past Surgical History: . Laterality Date BUNIONECTOMY 11/19/2007 OVARIAN CYST SURGERY Right 2021 Laproscopic procedure to confirm it wasn't a torsion. TONSIL AND ADENOIDECTOMY 09/15/1995 Problems (from 10/04/24 to present) No problems associated with this episode. Christina Hall RN ....10/04/24 1:25 PM Anxiety state, unspecified 01/24/2012 Posttraumatic stress disorder 03/26/2011 Other acne 07/06/2009 Major depressive disorder, recurrent episode, un specified 09/13/2008 Overview (11/28/2010): Onset 2005 Bunion 11/19/2007 Pain in limb 10/30/2007 Overview (10/30/2007): left foot pain Other and unspecified ovarian cyst 10/30/2007 Generalized anxiety disorder 10/01/2007 Estimated Date of Delivery Comme nts Yes 05/23/2025 Resolved Problems Problem Noted Date Diagnosed Date Resolved Date 9 weeks gestation of 04/29/2024 10/04/2024 Overview (04/29/2024): Estimated Date of Delivery: 11/27/24 Patient's last menstrual period was 02/21/2024 (exact date). GBS: 28wk labs: Last Tdap: 04/14/14 Last Flu vaccine: 10/06/2019 OB Labs: Allergies Allergen Reactions Prochlorperazine Itching Amoxicillin Hives Erythromycin Itching Optical ointment. Caused itching, burning eyes Penicillins Hives Prozac [Fluoxetine] Other - Describe In Comment Field shakiness OB History Para Term AB Living 1 0 0 0 0 0 SAB IAB Ectopic Multiple Live Births 0 0 0 0 0 # Outcome Date GA Lbr Juan/2nd Weight Sex Type Anes PTL Lv 1 Current Past Medical History: . Date Anxiety state, unspecified 01/24/2012 Bunion 11/19/2007 Generalized anxiety disorder 10/01/2007 Head injury, unspecified 10/2005 Major depressive disorder, recurrent episode, unspecified 09/13/2008 Other acne 07/06/2009 Syncope with shots and nasal swab Past Surgical History: . Laterality Date OVARIAN CYST SURGERY Right 2021 Laproscopic procedure to confirm it wasn't a torsion. TONSIL AND ADENOIDECTOMY 09/15/1995 #1 Problems (from 04/29/24 to present) No problems associated with this episode. Ninoska Corrigan RN ....04/29/2024 1:43 PM Encounters Date Type Department Care Team Description 10/12/2024 Transcribe Orders [facility] [id number] Toño James MD 10/04/2024 11:15 AM CREDIT COLLECTOR Ancillary Procedure [facility] [address] [place] [address] 10/04/2024 10:00 AM CREDIT COLLECTOR OB Encounter [facility] [address] [place] [address] Education (RN OB intake) 10/04/2024 Travel 09/22/2024 Transcribe Orders [facility] ID [id number] Karina Garza MD 09/20/2024 3:00 PM CREDIT COLLECTOR Orders Only [facility] [address] [place] [address] Lab, [place] 09/20/2024 Travel 09/16/2024 Travel 08/23/2024 9:30 AM CREDIT COLLECTOR Orders Only [facility] [address] [place] [address] Lab, [facility] 08/23/2024 Travel from Last 3 Months Immunizations Name Administration Dates Next Due AMB Influenza, IIV3 (Age >=3 years)(Flu Clinic Only) 07/06/2013 COVID-19 vaccine ([employer] 30mcg/0.3mL) RUSSEL BENSON 08/31/2021,02/02/2021,01/12/2021 DTP 01/22/1993, 2,01/24/1992,10/08 DTaP 05/05/1997, 3,03/13/1992,01/23,1991 Dtap-5 Pertussis Antigens 05/05/1997,06/1993,03/13/1992,01/23,1991 HIB PRP-T (ActHIB,Hiberix) 01/22/1993,01/24/1992 ,1991 HPV 9 (Gardasil 9) 04/15/2013,03/25/2012, 008 Hepatitis A (Adult) 04/14/2014,03/25/2012 Hepatitis B (Adult) 04/23/1993,10/10/1992,1991 Hepatitis B (Peds) 05/22/1993,10/10/1992, 992 Hepatitis B, Unspecified 04/23/1993,10/10/1992,1 1991 Hib Conjugate, Unspecified 01/22/1993,01/24/1992 ,1991 Human Papilloma Virus Vaccine 04/15/2013, 012,09/13/2008 Inactivated Polio Vaccine 05/05/1997,06/1993,03/13/1992,01/23,1991 Influenza, IIV3 (Age >=3 years) 07/06/2013,09/13,10/28/2006 Influenza, IIV4 10/06/2019,01/14/2018,08/02/2015 Somali Encephalitis 01/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 MMR 09/14/2004,01/22/1993 Meningococcal Vaccine (Menactra) 05/03/2008 Oral Polio Vaccine 05/05/1997, 3,03/13/1992,01/23,1991 Td (Age >=7 Years) 09/14/2004 Tdap 04/14/2014 Typhoid (injectable) 01/14/2018 Family History Medical History Relation Name Comments Good Health Brother 1 Good Health Brother 2 Depression Brother 3 Good Health Brother 3 Good Health Brother 4 Good Health Father Hyperlipidemia Father Hypertension Father Diabetes Maternal Aunt type 1 Cancer-colon Maternal Grandfather Diabetes Maternal Grandfather type 2 Hyperlipidemia Maternal Grandfather Hypertension Maternal Grandfather Cancer-breast Maternal Grandmother Diabetes Maternal Grandmother type 2 Hyperlipidemia Maternal Grandmother Hypertension Maternal Grandmother Unknown Maternal Uncle 1 Throat cancer Maternal Uncle 2 Fibromyalgia Mother Good Health Mother Good Health Paternal Grandfather Cancer-breast Paternal Grandmother Good Health Sister Asthma No Family History Heart Disease No Family History Other No Family History early unex plained deaths Relation Name Status Comments Brother 1 Alive Brother 2 Alive Brother 3 Alive Brother 4 Alive Father Alive Maternal Aunt Alive Maternal Grandfather Maternal Grandmother Maternal Uncle 1 Alive Maternal Uncle 2 Alive Mother Alive Paternal Grandfather Paternal Grandmother Sister Alive Social History Tobacco Use Types Packs/Day Years Used Date Smoking Tobacco: Never Smokeless Tobacco: Never Tobacco Cessation:Counseling Given: Yes Alcohol Use Standard Drinks/Week Comments Not Currently 2 (1 standard drink = 0.6 oz pur e alcohol) occasional Humiliation, Afraid, Rape, and Kick questionnair e Answer Date Recorded Fear of Current or Ex-Partner No Emotionally Abused No 10/06/2019 Physically Abused No 10/06/2019 Sexually Abused No 10/06/2019 PHQ-2 Answer Date Recorded PHQ-2 TOTAL SCORE 0 04/29/2024 Social Connections Answer Date Recorded Do you often feel lonely or isolated from those around you? 0 05/24/2024 Financial Resource Strain Answer Date R ecorded Difficulty of Paying Living Expenses 3 05/24/2024 Difficulty of Paying Living Expenses Not on file 05/24/2024 Food Insecurity Answer Date Recorded Do you worry your food will run out before you are able to buy more? 1 05/24/2024 Transportation Needs Answer Date Record ed Does lack of transportation keep you from medica l appointments? 1 05/24/2024 Does lack of transportation keep you from work, meetings or getting things that you need? 1 05/24/2024 Housing Stability Answer Date Recorded What is your housing situation today? 1 05/24/2024 Utilities Answer Date Recorded Do you have trouble paying f or utilities (for example, heat, electricity, water, phone)? 1 05/24/2024 Estimated Date of Delivery Comme nts Yes 05/23/2025 Sex and Gender Information Value Date Recorded Sex Assigned at Not on file Legal Sex Female 5:27 AM CREDIT COLLECTOR Gender Identity Not on file Sexual Orientation Not on file Travel History Travel Start Travel End [facility] ([place] 09/24/2024 10/02/2024 Obstetrics History Para Term AB IAB SAB Ectopic Multiple Livin g Live Births 3 0 0 0 2 0 2 0 0 0 Date Outcome GA Total Labor Labor/2nd/3rd Weight Sex Type Anes PTL Keke A1 A5 Name Clin 12/2023 SAB SPONTAN EOUS Comments:Biochemical S A per [facility] 024 SAB 11w 4d SPONTAN EOUS Comments:fetus measure d 9w, no FHTs Current Summary Episode Dates Number of Fetuses Estimated Date of Delivery 10/04/2024 - Present (10/14/2024) 05/23/2025 (set by Christina Hall, PATI Student on 10/04/2024 based on Alternate AJITH Entry) Dating Summary Based On AJITH GA Diff Last Menstrual Period on 08/16/2024 (Exact Date) 05/23/2025 Same Alternate AJITH Entry 05/23/2025 Working Vitals Pregravid Weight Height TWG (As of 10/14/2024) Pregrav id BMI 1.715 m (5' 7.52) Notes Progress Notes - OB Encounte r - 10/04/2024 - GA:7w0d 10/04/2024 - 7w0d - Christina Hall, PATI Student SUBJECTIVE: Natividad Hagen is a 34 y.o. female, , who presents for confirmation and ob education. Patient presents to the clinic with Fredrick-. Had positive test at home. This was Planned, Desired. Patient was not on contraception. Date Reliability: definite AJITH based on LMP: 08/16/25 Estimated Date of Delivery: None noted. Current symptoms include: Nausea:No Vomiting:No Breast tenderness:Yes Vaginal bleeding:No Vaginal discharge:Yes - Creamy white discharge when she has a BM Pelvic cramping:Yes - Very little Fatigue:Yes - Mild Previous Delivery Type: NA Occupation of patient: [employer] a [employer] in [place]. Name of Partner or Father of baby: Fredrick-. MENSTRUAL HISTORY: Patient's last menstrual period was 08/16/2024.: Cycle Regularity: regular, every 30-32 days Past Medical History: . Date Anesthesia complication 11/19/2007 Patient reports she stopped breathing during bunion surgery Anxiety state, unspecified 01/24/2012 Bunion 11/19/2007 Generalized anxiety disorder 10/01/2007 Head injury, unspecified 10/16/2005 Infertility, female Major depressive disorder, recurrent episode, unspecified 09/13/2008 Other acne 07/06/2009 Syncope with shots and nasal swab Varicella OB History Para Term AB Living 3 0 0 0 2 0 SAB IAB Ectopic Multiple Live Births 2 0 0 0 # Outcome Date GA Lbr Juan/2nd Weight Sex Type Anes PTL Lv 3 Current 2 SAB 05/12/24 11w4d SPONTANEOUS Comments: fetus measured 9w, no FHTs 1 SAB 12/2023 SPONTANEOUS Comments: Biochemical SA per [facility] 5P'S SUBSTANCE ABUSE SCREEN FOR ALCOHOL, DRUGS AND TOBACCO: Did any of your parents have a problem with using alcohol or drugs? Yes-Father's father of Acute Liver Failure from alcoholism. Do any of your friends (peers) have problems with drug or alcohol use? Yes-they have a friend who's is a functioning alcoholic. Does your partner have a problem with drug or alcohol use? No Before you knew you were , how often did you drink beer, wine, wine coolers or liquor or use any kind of drug? Sometimes-twice a month In the past month, how often did you drink beer, wine, wine coolers or liquor or use any kind of drug? No How much did you smoke, vape or use tobacco or nicotine in any form before you knew you were ? Don't Smoke, Vape or use Tobacco Genetic Screening Genetic Screening/Teratology Counseling- Includes patient, baby's father, or anyone in either family with: Patient's age 35 years or older as of estimated date of delivery: No Thalassemia (Trinidadian, Turkish, Mediterranean, or background): MCV less than 80: No Neural tube defect (Meningomyelocele, Spina bifida, or Anencephaly): No Congenital heart defect: No Down syndrome: No Evan-Sachs (Ashkenazi Faith, Cajun, Chilean Ecuadorean): No Theo disease (Ashkenazi Faith): No Familial dysautonomia (Ashkenazi Faith): No Sickle cell disease or trait (): No Hemophilia or other blood disorders: No Muscular dystrophy: No Cystic fibrosis: No Chicot's chorea: No Intellectual disability and/or autism: No Other inherited genetic or chromosomal disorder: No Maternal metabolic disorder (eg. Type 1 diabetes, PKU): No Patient or baby's father had child with defects not listed above: No Recurrent loss, or a stillbirth: Yes Medications (including supplements, vitamins, herbs, or OTC drugs)/illicit/recreational drugs/alcohol since last menstrual period: Yes If yes, agent(s) and strength/dosage: vitamin, DHA 100 mg, Aspirin 81 mg CURRENT MEDICATIONS: Current Outpatient Medications Medication Sig aspirin (ECOTRIN) 81 mg enteric coated tablet Take 81 mg by mouth once daily. hyoscyamine Sulfate (LEVSIN ODT) 0.[address] 1 tablet on the tongue every 4 hours if needed for Colic. multivit with min-folic acid (Women's Multivitamin Gummies) 200 mcg chew ondansetron (ZOFRAN ODT) [address] 1 Tablet (4 mg) on the tongue every 8 hours if needed for Nausea/Vomiting. oxyCODONE (ROXICODONE) 5 mg immediate release tablet Take 1 Tablet (5 mg) by mouth every 4 hours if needed for Pain. 21/iron fu/folic acid ( COMPLETE ORAL) Take by mouth. vit 56-uxvd-xgwyc-dha 27mg iron- 800 mcg-250 mg cap Take 1 Tablet by mouth. Patient reports taking an additional 200 mg of DHA No current facility-administered medications for this visit. Medications have been reviewed by me and are current to the best of my knowledge and ability. ALLERGIES: Prochlorperazine, Amoxicillin, Erythromycin, Penicillins, and Prozac [fluoxetine] OBJECTIVE: Ht 1.715 m (5' 7.52) Wt 63 kg (139 lb) LMP 08/16/2024 BMI 21.44 kg/m ,URINE (no units) Date Value 03/23/2024 Positive (Positive) ASSESSMENT/PLAN: ICD-10-CM 1. Encounter for supervision of other normal in first trimester Z34.81 2. Encounter for supervision of other normal , first trimester Z34.81 ANTI HIV 1/2 VARICELLA-ZOSTER V AB, IGG CBC W PLT NO DIFF URINE CULTURE TYPE AND SCREEN RUBELLA IMMUNE STATUS TREPONEMA PALLIDUM HBSAG (HBS) ANTI HCV LC VARICELLA-ZOSTER V AB, IGG WET CHAR CONVEYOR TENDER PROBE - GC CHLAMYDIA DNA PCR [[id number]] URINALYSIS W REFLEX MICROSCOPIC IF POSITIVE [80731.2] EDUCATION/PATIENT INSTRUCTIONS - Advised patient to start/continue vitamin. - Discussed risk of using alcohol, tobacco, other drugs in . - Discussed healthy lifestyle in . - Provided copy of [facility]nings book and book inserts, discussed obux-uso-hwtqncq medications, and follow up. - Encouraged patient to call clinic at [phone] with any vaginal bleeding, fluid leaking from vagina, severe abdominal pain, nausea with severe vomiting, fever higher than 100.4F, painful urination, headache not relieved by Tylenol, or other concerns - labs completed with today's visit. - Patient informed to schedule 1st trimester dating ultrasound between 7-10 weeks. - Patient has transvaginal ultrasound scheduled today at 11:15 am in clinic. - Initial OB appointment with FP/OB scheduled on 11/01/[address] Waite. PHQ-9, and COVID-19 vaccine discussion to be completed at this visit. Future Appointments Date Time Provider Department Center 10/04/2024 11:15 AM NFLD ULTRASOUND [facility]DMI NF 11/01/2024 9:05 AM Rowena Waite MD NFLDFP NFLD Christina Hall RN .................... 10/04/2024 10:37 AM IT COLLECTOR IT COLLECTOR Last Filed Vital Signs Vital Sign Reading Time Taken Comments Blood Pressure 103/67 05/24/2024 7:57 AM CDT Pulse 57 05/24/2024 7:57 AM CDT Temperature 36.9 C (98.5 F) 05/10/2024 3:08 PM CDT Respiratory Rate 14 08/26/2020 12:15 PM CREDIT COLLECTOR Oxygen Saturation 99% 05/24/2024 7:57 AM CDT Inhaled Oxygen Concentration - - Weight 63 kg (139 lb) 10/04/2024 10:14 AM CREDIT COLLECTOR Height 171.5 cm (5' 7.52) 10/04/2024 10:14 AM Rodriguez OLMEDO Body Mass Index 21.44 10/04/2024 10:14 AM CREDIT COLLECTOR Plan of Treatment Upcoming Encounters Date Type Department Care Team (Late st Contact Info) Description 10/21/2024 8:30 AM CREDIT COLLECTOR Appointment [facility] [address] [address] 11/01/2024 9:05 AM CREDIT COLLECTOR OB Encounter [facility] [address] [place] [address] Rowena Waite MD [address] [place] [id number] Health Maintenance Due Date Last Done Comments Tetanus booster 04/14/2024 04/14/2014, 09/14/2004 COVID-19 vaccine series ( season) 2024 08/31/2021, 02/02/2021, 01/12/2021 Influenza for age 9-49 05/16/2024 , 01/14/2018, 08/02/2015, Additional history exists Depression screening for age 12+ 04/29/2025 04/29/2024, 09/26/2023, 04/12/2022, Additional history exists BMI (ht and wt on same day) for age 18+ 10/04/2025 10/04/2024, 04/29/2024, 01/07/2023, Additional history exists Pap test for age 21-65 05/13/2026 , 05/13/2023, 10/06/2019, Additional history exists Tdap Completed 04/14/2014 HIV for age 15-65 Completed 10/04/2024, , 10/06/2019 Hepatitis C screening for age 18-79 Completed 10/04/2024, 04/29/2024 Pneumococcal series for age 6-49 Aged Out No longer eligible based on patient's age to complete this topic RSV vaccine for adults or (No Doses Required) Completed Procedures Procedure Name Priority Date/Time Associated Diagnosis Comments US OB ANY TRI TV Routine 10/04/2024 11:3 9 AM CREDIT COLLECTOR examination or test, unconfirmed ANTI HIV 1/2 Routine 10/04/2024 11:32 AM CREDIT COLLECTOR Encounter for supervision of other normal , first trimester CBC W PLT NO DIFF Routine 10/04/2024 11: 32 AM CREDIT COLLECTOR Encounter for supervision of other normal , first trimester RUBELLA IMMUNE STATUS Routine 10/04/2024 11:32 AM CREDIT COLLECTOR Encounter for supervision of other normal , first trimester HBSAG (HBS) Routine 10/04/2024 11:32 AM CREDIT COLLECTOR Encounter for supervision of other normal , first trimester ANTI HCV Routine 10/04/2024 11:32 AM CREDIT COLLECTOR Encounter for supervision of other normal , first trimester VARICELLA-ZOSTER V AB, IGG Routine 10/04/2024 11:32 AM CREDIT COLLECTOR Encounter for supervision of other normal , first trimester TYPE & SCREEN Routine 10/04/2024 11:31 AM CREDIT COLLECTOR Encounter for supervision of other normal , first trimester TREPONEMA PALLIDUM Routine 10/04/2024 11 :31 AM CREDIT COLLECTOR Encounter for supervision of other normal , first trimester UA W/ SEDIMENT EXAM REFLEXED PER CRITERIA Routine 10/04/2024 11:31 AM CREDIT COLLECTOR Encounter for supervision of other normal , first trimester GC CHLAMYDIA TRACH PROBE Routine 10/04/2024 11:31 AM CREDIT COLLECTOR Encounter for supervision of other normal , first trimester URINE CULTURE Routine 10/04/2024 11:31 AM CREDIT COLLECTOR Encounter for supervision of other normal , first trimester HCG BETA QUANT, Routine 09/20/2024 2:51 PM CREDIT COLLECTOR Encounter for supervision of other normal in first trimester HCG BETA QUANT, Routine 09/16/2024 1:35 PM CREDIT COLLECTOR Amenorrhea TSH WITH REFLEX Routine 08/23/2024 9:45 AM CREDIT COLLECTOR Recurrent loss THYROPEROXIDASE ANTIBODY Routine 08/23/2024 9:45 AM CREDIT COLLECTOR Recurrent loss HPV HIGH RISK Routine 05/13/2023 12:00 PM CDT from Last 3 Months or Most Recently Relevant to Health Maintenance Results * US OB ANY TRI TV (10/04/2024 11:39 AM CREDIT COLLECTOR) Anatomical Region Laterality Modality , 2or 3 TRIMESTER, 1ST TRIMESTER Ultrasound 10/04/2024 6:32 PM CREDIT COLLECTOR Impressions 10/04/2024 6:32 PM CREDIT COLLECTOR 1. Single living intrauterine gestation. Gestational age calculated at 6 weeks 5 days with a sonographic due date of 05/25/2025. 2. 2.5 cm subchorionic hemorrhage Dictated by Micah Park MD @ 10/04/2024 6:32:59 PM (Electronically Signed) Narrative 10/04/2024 6:32 PM CREDIT COLLECTOR For Patients: As a result of the Cures Act, medical imaging exams and procedure reports are released immediately into your electronic medical record. You may view this report before your referring provider. If you have questions, please contact your health care provider. INDICATION: First trimester scan, establish dates. COMPARISON: None. TECHNIQUE: Real time mak scale imaging of the pelvis was performed. FINDINGS: Sonographic imaging demonstrates a single living intrauterine gestation. The embryo demonstrates a regular cardiac rate measuring 132 beats per minute. The embryo`s crown rump length measurement of 0.8 cm corresponds to a gestational age of 6 weeks 5 days with a sonographic due date of 05/25/2025. There is a normal appearing yolk sac. There are no gross abnormalities noted within the embryo at this early state of development. The placenta has not yet developed. The gestational sac has a normal appearance. 1.1 x 2.5 x 0.4 cm subchorionic hemorrhage is present. The amount of fluid within the sac appears appropriate for gestational age. The cervix is closed. The myometrium appears normal. The ovaries are of normal size. 1.5 cm right ovarian cyst with thickened wall and peripheral hyperemia may represent hemorrhagic corpus luteal cyst. There are no suspicious fluid collections noted in the cul-de-sac. Procedure Note Micah Park MD - 10/04/2024 For Patients: As a result of the Cures Act, medical imagingexams and procedure reports are released immediately into your electronicmedical record. You may view this report before your referring provider.If you have questions, please contact your health care provider. INDICATION: First trimester scan, establish dates. COMPARISON: None. TECHNIQUE: Real time mak scale imaging of the pelvis was performed. FINDINGS: Sonographic imaging demonstrates a single living intrauterine gestation.The embryo demonstrates a regular cardiac rate measuring 132 beats perminute. The embryo`s crown rump length measurement of 0.8 cm correspondsto a gestational age of 6 weeks 5 days with a sonographic due date of05/25/2025. There is a normal appearing yolk sac. There are no grossabnormalities noted within the embryo at this early state of development.The placenta has not yet developed. The gestational sac has a normalappearance. 1.1 x 2.5 x 0.4 cm subchorionic hemorrhage is present. Theamount of fluid within the sac appears appropriate for gestational age.The cervix is closed. The myometrium appears normal. The ovaries are ofnormal size. 1.5 cm right ovarian cyst with thickened wall and peripheralhyperemia may represent hemorrhagic corpus luteal cyst. There are nosuspicious fluid collections noted in the cul-de-sac. IMPRESSION: 1. Single living intrauterine gestation. Gestational age calculated at 6weeks 5 days with a sonographic due date of 05/25/2025. 2. 2.5 cm subchorionic hemorrhage Dictated by Micah Park MD @ 10/04/2024 6:32:59 PM (Electronically Signed) us Karina Garza MD US Final Result * LC VARICELLA-ZOSTER V AB, IGG (10/04/2024 11:32 AM CREDIT COLLECTOR) VARICELLA ZOSTER VIRUS ANTIBODY (IGG) 10.20 S/CO [email or web address] [place] Comment: Signal to Cut-off S/CO Interpretation --------- <1.00 Negative - Antibody not detected > or = 1.00 Positive - Antibody detected A positive result indicates that the patient has antibody to VZV but does not differentiate between an active or past infection. The clinical diagnosis must be interpreted in conjunction with the clinical signs and symptoms of the patient. This assay reliably measures immunity due to previous infection but may not be sensitive enough to detect antibodies induced by vaccination. Thus, a negative result in a vaccinated individual does not necessarily indicate susceptibility to VZV infection. A more sensitive test for vaccination-induced immunity is Varicella Zoster Virus Antibody Immunity Screen, ACIF. Blood BLOOD SPECIMEN / Unknown 10/04/2024 11:32 AM CREDIT COLLECTOR 10/04/2024 11:33 AM CREDIT COLLECTOR Rowena Waite MD LABORATORY Final R esult Performing Organization Address [facility] Co de Phone Number [employer] [address] [address], [email or web address] [address] [place] [phone] * (ABNORMAL) RUBELLA IMMUNE STATUS (10/04/2024 11:32 AM CREDIT COLLECTOR) RUBELLA AB (IGG), IMMUNE STATUS <0.90(L) Index [facility] Comment: Index Interpretation ----- <0.90 Not consistent with immunity 0.90-0.99 Equivocal > or = 1.00 Consistent with immunity The presence of rubella IgG antibody suggests immunization or past or current infection with rubella virus. Blood BLOOD SPECIMEN / Unknown 10/04/2024 11:32 AM CREDIT COLLECTOR 10/04/2024 11:33 AM CREDIT COLLECTOR Rowena Waite MD SEND OUTS Final R esult Performing Organization Address [facility]/ZIP Co de Phone Number [facility] [address] [place] [address], [facility] [address] [place] [address] * HBSAG (HBS) (10/04/2024 11:32 AM CREDIT COLLECTOR) Pathologist [facility] [place] HEPATITIS B SURFACE ANTIGEN NON-REACTI VE NON-REACTI VE [facility] Comment: For additional information, please refer to http://Semmle.Terarecon/faq/WQD505 (This link is being provided for informational/ educational purposes only.) Blood BLOOD SPECIMEN / Unknown 10/04/2024 11:32 AM CREDIT COLLECTOR 10/04/2024 11:33 AM CREDIT COLLECTOR us Rowena Waite MD SEND OUTS Final R esult Performing Organization Address [facility] Co de Phone Number [employer] [address] [address], [facility] [address] [facility] [place] [address] * ANTI HCV (10/04/2024 11:32 AM CREDIT COLLECTOR) Pathologist [facility] [place] HEPATITIS C ANTIBODY NON-REACTI VE NON-REACT LIZZIE [facility] Comment: HCV antibody was non-reactive. There is no laboratory evidence of HCV infection. In most cases, no further action is required. However, if recent HCV exposure is suspected, a test for HCV RNA (test code 51761) is suggested. For additional information please refer to http://Semmle.Terarecon/faq/XBW29o8 (This link is being provided for informational/ educational purposes only.) Blood BLOOD SPECIMEN / Unknown 10/04/2024 11:32 AM CREDIT COLLECTOR 10/04/2024 11:33 AM CREDIT COLLECTOR us Rowena Waite MD SEND OUTS Final R esult Performing Organization Address [facility]/ZIP Co de Phone Number [employer] [address] [address], [facility] [place] [address] [facility] [address] * CBC W PLT NO DIFF (10/04/2024 11:32 AM CREDIT COLLECTOR) Pathologist [facility] [place] WHITE BLOOD CELL COUNT 6.1 3.8 - 10.8 Thousand/u L [facility] RED BLOOD CELL COUNT 4.22 3.80 - 5.10 Million/uL [facility] HEMOGLOBIN 13.6 11.7 - 15.5 g/dL [facility] HEMATOCRIT 40.1 35.0 - 45.0 % [facility] MCV 95.0 80.0 - 100.0 fL [facility] MCH 32.2 27.0 - 33.0 pg [facility] MCHC 33.9 32.0 - 36.0 g/dL [facility] Comment: For adults, a slight decrease in the calculated MCHC value (in the range of 30 to 32 g/dL) is most likely not clinically significant; however, it should be interpreted with caution in correlation with other red cell parameters and the patient's clinical condition. RDW 12.3 11.0 - 15.0 % [facility] PLATELET COUNT 236 140 - 400 Thousand/u L [facility] kristen Kaye MPV 11.6 7.5 - 12.5 fL [facility] kristen Kaye Blood BLOOD SPECIMEN / Unknown 10/04/2024 11:32 AM CREDIT COLLECTOR 10/04/2024 11:33 AM CREDIT COLLECTOR us Rowena Waite MD HEMATOLOGY Final R esult [facility] [address] [place] [address], Pamela [facility] [place] [address] [facility] [place] [address] * ANTI HIV 1/2 (10/04/2024 11:32 AM CREDIT COLLECTOR) HIV AG/AB, 4TH GEN NON-REACT LIZZIE NON-REACT LIZZIE [facility] Comment: HIV-1 antigen and HIV-1/HIV-2 antibodies were not detected. There is no laboratory evidence of HIV infection. PLEASE NOTE: This information has been disclosed to you from records whose confidentiality may be protected by state law. If your state requires such protection, then the state law prohibits you from making any further disclosure of the information without the specific written consent of the person to whom it pertains, or as otherwise permitted by law. A general authorization for the release of medical or other information is NOT sufficient for this purpose. For additional information please refer to http://education.Terarecon/faq/AFD332 (This link is being provided for informational/ educational purposes only.) The performance of this assay has not been clinically validated in patients less than 2 years old. Blood BLOOD SPECIMEN / Unknown 10/04/2024 11:32 AM CREDIT COLLECTOR 10/04/2024 11:33 AM CREDIT COLLECTOR Rowena Waite MD SEND OUTS Final R esult [facility] [address] [place] [address], [facility] [address] [place] [address] * TREPONEMA PALLIDUM (10/04/2024 11:31 AM CREDIT COLLECTOR) TREPONEMA PALLIDUM Non-Reacti ve Non-Reacti ve 10/04/2024 10:29 PM CREDIT COLLECTOR [facility] Blood BLOOD SPECIMEN / Unknown [facility] / Unknown 10/04/2024 11:31 AM CREDIT COLLECTOR 10/04/2024 11:31 AM CREDIT COLLECTOR Rowena Waite MD SEND OUTS Final R esult [facility] [address] [place] [address], [place] * WET CHAR CONVEYOR TENDER PROBE - GC CHLAMYDIA DNA PCR [[id number]] (10/04/2024 11:31 AM CREDIT COLLECTOR) CHLAMYDIA PROBE Negative 6:51 PM CREDIT COLLECTOR [facility] TRAL LABORAT[facility] N GONORRHOEAE PROBE Negative 10/04/2024 6:51 PM CREDIT COLLECTOR [facility] Other URINE SPECIMEN / Unknown Non-Blood / Unknown 10/04/2024 11:31 AM CREDIT COLLECTOR 10/04/2024 11:31 AM CREDIT COLLECTOR Rowena Waite MD MICROBIOLOGY Final R esult [facility] [address] [place] [address], [place] * TYPE AND SCREEN (10/04/2024 11:31 AM CREDIT COLLECTOR) ABORH B Rh Positive 10/04/2024 3:59 PM CREDIT COLLECTOR [facility] ANTIBODY SCREEN Negative Negative 10/04/2024 3:59 PM CREDIT COLLECTOR [facility] LAB BLOOD BANK SPECIMEN EXPIRATION DATE/TIME 10/07/24 23:59 10/04/2024 3:59 PM CREDIT COLLECTOR [facility] BLOOD BANK Blood BLOOD SPECIMEN / Unknown [facility] / Unknown 10/04/2024 11:31 AM CREDIT COLLECTOR 10/04/2024 11:31 AM CREDIT COLLECTOR Rowena Waite MD BLOOD BANK Final R esult [facility] [address] [place] [address], [place] [phone] * URINE CULTURE (10/04/2024 11:31 AM CREDIT COLLECTOR) CULTURE No growth (<1,000 CFU/mL) 10/05/2024 1:54 PM CREDIT COLLECTOR [facility] Urine URINE SPECIMEN / Unknown Non-Blood / Unknown 10/04/2024 11:31 AM CREDIT COLLECTOR 10/04/2024 11:31 AM [facility] us Rowena Waite MD MICROBIOLOGY Final R esult [facility] [address] [place] [address], [place] * URINALYSIS W REFLEX MICROSCOPIC IF POSITIVE [35557.2] (10/04/2024 11:31 AM CREDIT COLLECTOR) COLOR Yellow Yellow Color 10/04/2024 3:07 PM CREDIT COLLECTOR [facility] LAB[facility] CLARITY Clear Clear Clarity 10/04/2024 3:07 PM [facility] SPECIFIC GRAVITY,URINE 1.010 1.010, 1.015, 1.020, 1.025 10/04/2024 3:07 PM [facility] PH,URINE 7.0 6.0, 7.0, 8.0, 5.5, 6.5, 7.5, 8.5 10/04/2024 3:07 PM [facility] TRAL LABORAT[facility] UROBILINOGEN, QUALITATIVE Normal Normal EU/dl 10/04/2024 3:07 PM CREDIT COLLECTOR [facility] LAB[facility] PROTEIN, URINE Negative Negative mg/dL 10/04/2024 3:07 PM [facility] TR[facility] LAB[facility] GLUCOSE, URINE Negative Negative mg/dL 10/04/2024 3:07 PM [facility] KETONES,URINE Negative Negative mg/dL 10/04/2024 3:07 PM [facility] TRAL LABOR[facility] BILIRUBIN,URI NE Negative Negative 10/04/2024 3:07 PM [facility] OCCULT BLOOD,URINE Negative Negative 10/04/2024 3:07 PM CREDIT COLLECTOR [facility] TR[facility] LAB[facility] NITRITE Negative Negative 10/04/2024 3:07 PM [facility] LEUKOCYTE ESTERASE Negative Negative 10/04/2024 3:07 PM [facility] Urine URINE SPECIMEN / Unknown Non-Blood / Unknown 10/04/2024 11:31 AM CREDIT COLLECTOR 10/04/2024 11:31 AM CREDIT COLLECTOR Rowena Waite MD URINE Final R esult [facility] [address] [place] [address], [place] * HCG BETA QUANT, (09/20/2024 2:51 PM CREDIT COLLECTOR) Only the most recent of2 resultswithin the time period is included. HCG BETA QUANT,PREGNANC Y 1,717 mIU/mL 09/20/2024 10:30 PM CREDIT COLLECTOR [facility] Blood BLOOD SPECIMEN / Unknown [facility] / Unknown 09/20/2024 2:51 PM CREDIT COLLECTOR 09/20/2024 2:51 PM CREDIT COLLECTOR Narrative [facility] - 09/20/2024 10:30 PM CREDIT COLLECTOR Expected Value for Healthy Non- premenopausal women <5.3mIU/mL FOR GESTATIONAL ASSESSMENT-See Range Table Below Weeks of gestation hCG mIU/mL 3 weeks gestation (5.8 - 71.2) 4 weeks gestation (9.5 - 750) 5 weeks gestation (217 - 7138) 6 weeks gestation (158 - 31,795) 7 weeks gestation (3,697 - 163,563) 8 weeks gestation (32,065 - 149,571) 9 weeks gestation (63,803 - 151,410) 10 weeks gestation (46,509 - 186,977) 12 weeks gestation (27,832 - 210,612) 14 weeks gestation (13,950 - 62,530) 15 weeks gestation (12,039 - 70,971) 16 weeks gestation (9,040 - 56,451) 17 weeks gestation (8,175 - 55,868) 18 weeks gestation (8,099 - 58,176) Biotin supplements may cause clinically significant interference for this test assay. If interference is suspected, it is strongly recommended that biotin is discontinued for at least one week prior to retesting. Rowena Waite MD CHEMISTRY Final R esult [facility] [address] [place] [address], [place] * TSH WITH REFLEX (08/23/2024 9:45 AM CREDIT COLLECTOR) TSH W/REFLEX TO FT4 1.57 mIU/L [facility] [place] Comment: Reference Range > or = 20 Years 0.40-4.50 Ranges First trimester 0.26-2.66 Second trimester 0.55-2.73 Third trimester 0.43-2.91 Blood BLOOD SPECIMEN / Unknown 08/23/2024 9:45 AM CREDIT COLLECTOR 08/23/2024 9:46 AM CREDIT COLLECTOR Narrative [facility] - 08/24/2024 5:29 AM CREDIT COLLECTOR FASTING:NO FASTING: NO Rowena Waite MD CHEMISTRY Final R esult Performing Organization Address City/[facility]/ZIP Co de Phone Number [facility] [address] [place] [address], [facility] [address] [place] [address] * THYROPEROXIDASE ANTIBODY (08/23/2024 9:45 AM CREDIT COLLECTOR) Pathologist [facility] THYROID PEROXIDASE ANTIBODIES 1 <9 IU/mL [email or web address] [place] Blood BLOOD SPECIMEN / Unknown 08/23/2024 9:45 AM CREDIT COLLECTOR 08/23/2024 9:46 AM CREDIT COLLECTOR Narrative [facility] - 08/24/2024 3:49 PM CREDIT COLLECTOR FASTING:NO FASTING: NO Rowena Waite MD SEND OUTS Final R esult [facility] [address] [place] [address], [employer] [facility] [address] [place] [address] * HPV HIGH RISK (05/13/2023 12:00 PM CDT) TYPE 16 Negative Negative 05/18/2023 3:21 PM CDT [facility] TYPE 18 Negative Negative 05/18/2023 3:21 PM CDT [facility] OTHER HIGH RISK TYPES Negative Negative 05/18/2023 3:21 PM CDT [facility] Other (Cervical) 05/13/2023 12:00 PM CDT 05/15/2023 10:52 AM CDT Narrative [facility] - 05/18/2023 3:21 PM CDT HPV types 16, 18, 31, 33, 35, 39, 45, 51, 52, 56, 58, 59, 66 and 68 DNA were undetectable or below the pre-set threshold. Methodology: Tracy Clarissa 4800 HPV Test us Maxine Egan NP MICROBIOLOGY Final Res ult [facility] [address] [place] [address], from Last 3 Months or Most Recently Relevant to Health Maintenance Insurance [employer] Care Teams Fans Clerk Relationship Specialty Start Date End Date TeraIrma hayes DO Keke [address] [facility] [place] [id number] PCP - General Family Practice 01/07/23 Vaishnavi Lopez L Ac [address] [facility] [place] [id number] Director Of Professional Services 04/24/23
--- OUTSIDE RECORDS SUMMARY | 2024-10-14 11:00 | XMS_ITS | Clinical Summary ---
Author Organization [facility] Address [address] [place] [address] Care Team Providers Care Paste Mixer Name Role Phone Elsewhere, Pcp Primary Care Provider Unavailabl e Source Comments Patient records contain information from all sites at [facility]. For routine questions regarding patient records, call [phone] during business hours, M-F 8:00 AM - 5:00 PM Central Time. Record requests for emergency care only can be directed to [phone] at any time.[facility] Allergies Active Allergy Reactions Criticality Noted Date Comments Amoxicillin Hives (Reselect Reaction) 05/23/2022 Erythromycin Itching 09/22/2008 Optical ointment. Caused itching, burning eyes Fluoxetine Anxiety,Other (see comments) 06/21/2008 shakiness PROZAC Penicillins Hives (Reselect Reaction) 10/30/2007 Prochlorperazine Itching High 07/12/2022 Medications * This document contains information received from the source organization and may not represent a complete record from that organization. celecoxib (CeleBREX) 200 mg capsule as needed. 10/23/19 22 Active vit no.124/iron/folic ( VITAMIN ORAL) daily. GUMMIE FORM 02/27/20 21 Active amitriptyline (ELAVIL) 10 mg tablet Take 10 mg by mouth at bedtime. 05/03/20 22 Active ibuprofen (ADVIL,MOTRIN) 400 mg tablet Take 400 mg by mouth as needed. 04/09/20 Active ondansetron ODT (ZOFRAN-ODT) 4 mg disintegrating tablet Dissolve 4 mg in the mouth as needed. 04/12/20 22 Active traZODone (DESYREL) 50 mg tablet Take 100 mg by mouth as needed. 04/30/20 22 Active norgestimate-ethin yl estradioL (ORTHO-CYCLEN) 0.25- mg-35 mcg per tablet Take 1 tablet by mouth daily. 28 tablet 12 06/06/20 22 Active Additional Information Patient not taking.Reported on 09/17/2024 hydrOXYzine (ATARAX) 25 mg tablet 25 mg as needed for anxiety. 06/07/20 22 Active Ovidrel 250 mcg/0.5 mL syringe injection INJECT CONTENTS OF 1 SYRINGE UNDER THE SKIN ONCE DAILY DIRECTED 02/23/20 24 Active estradioL (Estrace) 2 mg tablet 03/13/20 24 Active letrozole (Femara) 2.5 mg tablet 03/12/20 24 Active LORazepam (Ativan) 0.5 mg tablet Take one tablet (0.5 mg) as needed while flying on airplanes. 09/10/20 23 Active meloxicam (Mobic) 15 mg tablet Take by mouth. 11/11/19 24 Active methylPREDNISolone (MedroL DosePak) 4 mg tablet Take by mouth as instructed per packaging. 09/26/19 24 Active progesterone (Prometrium) 200 mg capsule 02/23/20 24 Active HYDROcodone-acetam inophen ([place]) 5-325 mg per tablet 1 oral at bedtime as needed. Max acetaminophen dose: 4000mg in 24 hrs. 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 Wellmann, Shelby M 09/17/2024 10:30 AM VECTOR CONTROL SPECIALIST Lab Department of Laboratory Medicine and Pathology, [facility], in [place], [place] [address] [place] [address] Cornelia Turner M.D. Recurrent Loss First Trimester (HCC) 09/17/2024 9:00 AM VECTOR CONTROL SPECIALIST Comprehensive Visit Department of Obstetrics and Gynecology in [place], [place] [address] [place] [address] Cornelia Turner M.D. Recurrent Loss First Trimester (HCC) (Primary Dx); Management Procreative; Infertility Female from Last 3 Months Family History Medical History Relation Name Comments ADD Brother 1 Ac Woo ADD Brother 2 Hai woo ADD Brother 3 Brian [place] Colon cancer Maternal Grandfather Erv [place]win[place]agak Dementia Maternal Grandfather Erv [place]ak Skin cancer Maternal Grandfather Erv [place]ak Stroke Maternal Grandfather Erv [place]ak Breast cancer Maternal Grandmother Burnet Kwinhagak Dementia Maternal Grandmother Burnet K[place]agak Skin cancer Maternal Grandmother Mecca Kwinhagak Alcohol abuse Mother's Brother Toño Kwinhagak Diabetes Mother's Sister Alisha [place]agak Breast cancer Paternal Grandmother Natasha Atwood Relation Name Status Comments Brother 1 Ac Atwood Brother 2 Hai woo Brother 3 Brian [place] Maternal Grandfather Erv [place]ak Maternal Grandmother Burnet K[place]hagak Mother's Brother Toño Kwinhagak Mother's Sister Alisha Kwinhagak Paternal Grandmother Natasha Woo Social History Tobacco Use Types Packs/Day Years Used Date Smoking Tobacco: Never Smokeless Tobacco: Never Tobacco Cessation:Counseling Given: Not Answered Alcohol Use Standard Drinks/Week Comments Yes 3 (1 standard drink = 0.6 oz pur e alcohol) [facility] Utilities Answer Date Recorded In the past 12 months has [facility] [employer], gas, oil, or water [employer] threatened to shut off services in your home? No 03/10/2024 Humiliation, Afraid, Rape, and Kick questionnair e Answer Date Recorded Within the last year, have y ou been afraid of your partner or ex-partner? No 07/21/2022 Within the last year, have y ou been humiliated or emotionally abused in other ways by your partner or ex-partner? No Within the last year, have y ou been kicked, hit, slapped, or otherwise physically hurt by your partner or ex-partner? No 07/21/2022 Within the last year, have y ou been raped or forced to have any kind of sexual activity by your partner or ex-partner? No 07/21/2022 Social Connection and Isolat ion Panel [NHANES] Answer Date Recorded In a typical week, how many times do you talk on the phone with family, friends, or neighbors? Three times a week 07/21/2022 How often do you get togethe r with friends or relatives? Once a week 07/21/2022 How often do you attend chur ch or hindu services? More than 4 times per year 07/21/2022 Do you belong to any clubs o r organizations such as muslim groups, unions, fraternal or athletic groups, or school groups? Yes 07/21/2022 How often do you attend meet ings of the clubs or organizations you belong to? More than 4 times per year 07/21/2022 Are you , , di vorced, , never , or living with a partner? 07/21/2022 AUDIT-C Answer Date Recorded Q1: How often do you have a drink containing alc ohol? 2-3 times a week 07/21/2022 Q2: How many drinks containi ng alcohol do you have on a typical day when you are drinking? 1 or 2 07/21/2022 Q3: How often do you have si x or more drinks on one occasion? Never 07/21/2022 Overall Financial Resource Strain (CARDIA) Answe r Date Recorded How hard is it for you to pa y for the very basics like food, housing, medical care, and heating? Not very hard 07/21/2022 PHQ-2 Answer Date Recorded PHQ-2 Score 2 09/16/2024 [facility] - Occupational Stress Questionnaire Answer Date Recorded Do you feel stress - tense, restless, nervous, or anxious, or unable to sleep at night because your mind is troubled all the time - these days? Only a little 07/21/2022 Exercise Vital Sign Answer Date Recorde d On average, how many days pe r week do you engage in moderate to strenuous exercise (like a brisk walk)? 5 days 03/10/2024 On average, how many minutes do you engage in exercise at this level? 40 min 03/10/2024 Hunger Vital Sign Answer Date Recorded Within the past 12 months, y ou worried that your food would run out before you got the money to buy more. Never true 03/10/20 Within the past 12 months, t he food you bought just didn't last and you didn't have money to get more. Never true 03/10/2024 PRAPARE - Transportation Answer Date Re corded In the past 12 months, has l ack of transportation kept you from medical appointments or from getting medications? No 02/14 In the past 12 months, has l ack of transportation kept you from meetings, work, or from getting things needed for daily living? No 03/10/2024 Depression Answer Date Recor ded PHQ-9 Total Score (max 27) 4 09/16 Nutrition Answer Date Recorded On average, how many serving s of fruits and vegetables do you eat per day (serving size is equal to 1 cup or approximately the size of a tennis ball)? 3-5 03/10/2024 Dental Answer Date Recorded Dental: Regular Dentist No 03/10/20 Employment Answer Date Recorded Employment status Employed and actively working without restrictions 03/10/2024 Housing Stability Answer Date Recorded What is your living situation today? I have a [facility] place to live 03/10/2024 Education Answer Date Recorded What is the highest level of school you have completed or the highest degree you have received? Bachelor's degree (e.g., BA, AB, BS) 12/18/2021 Comments Yes Sex and Gender Information Value Date Recorded Sex Assigned at Female 06/13/2021 12:54 PM CDT Legal Sex Female 2:24 PM VECTOR CONTROL SPECIALIST Gender Identity Female 12/21/2021 1:04 PM CDT Sexual Orientation Straight 12/21/2021 1: 04 PM CDT Last Filed Vital Signs Vital Sign Reading Time Taken Comments Blood Pressure 131/76 09/17/2024 8:56 AM VECTOR CONTROL SPECIALIST Pulse 90 09/17/2024 8:56 AM VECTOR CONTROL SPECIALIST Temperature 36.4 C (97.6 F) 03/15/2024 7:46 AM CDT Respiratory Rate 16 05/28/2022 2:16 PM CDT Oxygen Saturation 100% 05/28/2022 4:15 PM CDT Inhaled Oxygen Concentration - - Weight 62 kg (136 lb 11 oz) 09/17/2024 8:56 AM C Height 173 cm (5' 8.11) 03/15/2024 7:46 AM CDT Body Mass Index 20.72 03/15/2024 7:46 AM CDT Plan of Treatment Upcoming Encounters Date Type Department Care Team (Late st Contact Info) Description 10/22/2024 9:00 AM VECTOR CONTROL SPECIALIST Telemedicine Department of Obstetrics and Gynecology in [place], [place] [address] [place] [phone] Cornelia Turner M.D. [address] [place] [phone] Barb Lovelace M.S., [facility] [address] [place] [phone] Health Maintenance Due Date Last Done Comments HIV Screening 1991 Hepatitis C Screening 1991 DTaP,Tdap,and Td Vaccines (7 - Td or Tdap) 04/14/2024 04/14/2014, 09/14/2004, 05/05/1997, Additional history exists COVID-19 Vaccine ( - season) 2024 08/31/2021, 02/02/2021, 01/12/2021 Influenza Vaccine (#1) 2024 , 01/14/2018, 08/02/2015, Additional history exists Depression Screening (Annual PHQ-2) 09/15/2024 Cervical/Vaginal Cancer Screening 05/13/2026 05/13/2023 RSV vaccine - (32-36 weeks) or 60+ years (1 - 1-dose 75+ series) 2066 Hepatitis B Vaccines Completed 04/23/1993, 10/10/1992, 08/15/1992 IPV Vaccines Completed 05/05/1997, 01/13, 03/13/1992, Additional history exists HPV Vaccines Completed 04/15/2013, 09/2012, 03/25/2012, Additional history exists Pneumococcal vaccine (0-49 years) Aged Out No longer eligible based on patient's age to complete this topic Procedures Procedure Name Priority Date/Time Associated Diagnosis Comments HUMAN CHORIONIC GONADOTROPIN (HCG), OCTAVIA, Routine 09/20/2024 8:00 AM VECTOR CONTROL SPECIALIST CHROMOSOMES, CONGENITAL, BLOOD Routine 09/17/2024 10:57 AM VECTOR CONTROL SPECIALIST Recurrent Loss First Trimester (HCC) PHOSPHOLIPID (CARDIOLIPIN) ABS, IGG AND IGM, S Routine 09/17/2024 10:57 AM VECTOR CONTROL SPECIALIST Recurrent Loss First Trimester (HCC) HUMAN CHORIONIC GONADOTROPIN (HCG), OCTAVIA, Routine 09/16/2024 8:00 AM VECTOR CONTROL SPECIALIST from Last 3 Months Results * (ABNORMAL) hCG (Human Chorionic Gonadotropin), Quantitative, (09/20/2024 8:00 AM VECTOR CONTROL SPECIALIST) Only the most recent of2 resultswithin the time period is included. EXT HCG, Quantitative, , S 1,717(A) 0 - 5 EXTERNAL NON-INTERFACE D LAB Blood (Blood, Venous) us Referring Provider Lab External LAB BLOOD ADD-ON Final Result EXTERNAL NON-INTERFACED LAB [address] [place] [address] * Chromosome Analysis, Congenital Disorders (09/17/2024 10:57 AM VECTOR CONTROL SPECIALIST) Pathologist [facility] Result Summary Normal 09/27/2024 12:13 PM VECTOR CONTROL SPECIALIST DTL Karyotype 46,XX 09/27/2024 12:13 PM VECTOR CONTROL SPECIALIST DTL Reason for referral recurrent loss 09/27/2024 12:13 PM VECTOR CONTROL SPECIALIST DTL Specimen Blood 09/27/2024 12:13 PM VECTOR CONTROL SPECIALIST DTL Method 72 hour culture w/mitogens 09/27/2024 12:13 PM VECTOR CONTROL SPECIALIST DTL Banding Method Band Resolution: [id number] Stain Name Cells Analyzed Cells Karyograms Counted Prepared GTL 5 15 2 Total 5 15 2 [place] to Stain Name: GTL=G-banding; QFQ=Q-banding; DAPI=DAPI-stain ing; CBL=C-banding; AGNOR=Silver-st aining; NON=Non-banded The sum of Cells Analyzed and Cells Counted equals the total cells examined. 09/27/2024 12:13 PM VECTOR CONTROL SPECIALIST DTL Additional Information A portion of the testing process was performed at [facility] site [id number]. 09/27/2024 12:13 PM VECTOR CONTROL SPECIALIST DTL Released by Marianne Holguin, Ph.D. 09/27/2024 12:13 PM VECTOR CONTROL SPECIALIST DTL Interpretation No chromosome abnormality was apparent. 09/27/2024 12:13 PM VECTOR CONTROL SPECIALIST DTL Blood (Blood, Venous) 09/17/2024 10:57 AM VECTOR CONTROL SPECIALIST 09/17/2024 11:30 AM VECTOR CONTROL SPECIALIST us Cornelia Turner M.D. LAB GENETIC TESTING Final Result [facility] [address] [place] [address], [facility] DT [address] [facility] [address] [place] [address] * Phospholipid (Cardiolipin) Antibodies, IgG and IgM (09/17/2024 10:57 AM VECTOR CONTROL SPECIALIST) Phospholipid Ab IgM, S <9.4 <15.0 (Negative) MPL 09/17/2024 8:19 PM VECTOR CONTROL SPECIALIST SDSC Phospholipid Ab IgG, S <9.4 <15.0 (Negative) GPL 09/17/2024 8:19 PM VECTOR CONTROL SPECIALIST SDSC Blood (Blood, Venous) 09/17/2024 10:57 AM VECTOR CONTROL SPECIALIST 09/17/2024 1:37 PM VECTOR CONTROL SPECIALIST us Cornelia Turner M.D. LAB BLOOD ADD-ON Fin al Result [facility] [address] [place] [address] [facility] [address] T[place] Turner [id number] from Last 3 Months Insurance MEDICA Care Teams Paste Mixer Relationship Specialty Start Date End Date Elsewhere, Pcp PCP - General Internal Medicine 05/28/22
--- OUTSIDE RECORDS SUMMARY | 2024-10-14 11:01 | XMS_ITS | Encounter Summary ---
Author Organization [facility] Address [address] [place] [address] Care Team Providers Care Supervisor Newspaper Deliveries Name Role Phone Elsewhere, Pcp Primary Care Provider Unavailabl e Reason for Visit * Outpatient (Routine) - Authorized Specialty Diagnoses / Procedures Referred By Contitalia t Referred To Contact Obstetrics and Gynecology Diagnoses Recurrent Loss First Trimester (HCC) Cornelia Turner M.D. [address] [place] [phone] Phone: tel: fax: [facility] Referral ID Status Reason Start Date Expiration Date V isits Requested Visits Authorized [id number] Authorized 09/17/2024 03/19/2026 1 1 Encounter Details Date Type Department Care Team (Late st Contact Info) Description 10/12/2024 9:00 AM MERGERS AND ACQUISITIONS ASSOCIATE Nurse Only Department of Obstetrics and Gynecology in [place], [place] [address] [place] [phone] Cornelia Turner M.D. [address] [place] [phone] Olamide De La O Social History Tobacco Use Types Packs/Day Years Used Date Smoking Tobacco: Never Smokeless Tobacco: Never Alcohol Use Standard Drinks/Week Comments Yes 3 (1 standard drink = 0.6 oz pur e alcohol) [facility] Utilities Answer Date Recorded In the past 12 months has e electric, gas, oil, or water company threatened to shut off services in your [...] often do you attend chur ch or samaritan services? More than 4 times per year 07/21/2022 Do you belong to any clubs o r organizations such as pentecostalism groups, unions, fraternal or athletic groups, or [...] Answer Date Recorded PHQ-2 Score 2 09/16/2024 [facility] [place] of Occupat ional Health - Occupational Stress Questionnaire Answer Date [...] your living situation today? I have a [facility] place to live 03/10/2024 Education Answer Date Recorded What is the highest level of school you have completed or the highest degree you have received? Bachelor's degree (e.g., BA, AB, BS) 12/18/2021 Comments Yes Sex and Gender Information Value Date Recorded Sex Assigned at Female 06/13/2021 12:54 PM CDT Legal Sex Female 2:24 PM MERGERS AND ACQUISITIONS ASSOCIATE Gender Identity Female 12/21/2021 1:04 PM CDT Sexual Orientation Straight 12/21/2021 1: 04 PM CDT documented as of this encounter Progress Notes * Olamide De La O - 10/12/2024 9:00 AM CST CHIEF COMPLAINT/PURPOSE OF VISIT Obtain and construct family history for clinical assessment over the phone. HISTORY OF PRESENT ILLNESS Please see Barb Lovelace MS, [facility]'s Clinical Genomics consultation for further details. FAMILY HISTORY A family history was obtained by phone and constructed for the Preconception Genetics consult. The complete family history has been saved as a scanned document and is available for viewing. The patient will be seen in Reproductive Endocrinology and Infertility ([facility]) by Barb Lovelace MS, [facility]. Pleasesee the consult note regarding pertinent findings of the family history in relation to the differential diagnosis and clinical assessment. ERS AND ACQUISITIONS ASSOCIATE documented in this encounter Plan of Treatment Upcoming Encounters Date Type Department Care Team (Late st Contact Info) Description 10/22/2024 9:00 AM MERGERS AND ACQUISITIONS ASSOCIATE Telemedicine Department of Obstetrics and Gynecology in [place], [place] [address] [place] [phone] Cornelia Turner M.D. [address] [place] [phone] Barb Lovelace MJerardoS., [facility] [address] [place] [phone] documented as of this encounter Visit Diagnoses Diagnosis Recurrent Loss First Trimester (HCC) documented in this encounter Additional Health Concerns Assessment Noted Time PHQ-9 Depression Total Score: 4 09/16/19 25 10:47 AM MERGERS AND ACQUISITIONS ASSOCIATE documented as of this encounter Care Teams Supervisor Newspaper Deliveries Relationship Specialty Start Date End Date Elsewhere, Pcp PCP - General Internal Medicine 05/28/22 documented as of this encounter
--- OUTSIDE RECORDS SUMMARY | 2024-10-14 11:01 | XMS_ITS | Encounter Summary ---
Author Organization [facility] Address [address] [place] [address] Care Team Providers Care Sole Edge Inker Machine Name Role Phone Elsewhere, Pcp Primary Care Provider Unavailabl e Encounter Details Date Type Department Care Team (Late st Contact Info) Description 09/17/2024 10:30 AM PM TECHNICIAN Lab Department of Laboratory Medicine and Pathology, [facility] in [place], [place] [address] [place] [phone] Cornelia Turner M.D. [address] [place] [phone] Recurrent Loss First Trimester (HCC) Social History Tobacco Use Types Packs/Day Years Used Date Smoking Tobacco: Never Smokeless Tobacco: Never Alcohol Use Standard Drinks/Week Comments Yes 3 (1 standard drink = 0.6 oz pur e alcohol) [facility] Utilities Answer Date Recorded In the past [...] 07/21/2022 How often do you attend chur or episcopalian services? More than 4 times per year 07/21/2022 Do you belong to any clubs o r organizations such as protestant groups, unions, fraternal or athletic groups, or [...] Answer Date Recorded PHQ-2 Score 2 09/16/2024 [facility] [place] of Occupat ional Health - Occupational Stress [...] your living situation today? I have a [facility] place to live 03/10/2024 Education Answer Date Recorded What is the highest level of school you have completed or the highest degree you have received? Bachelor's degree (e.g., BA, AB, BS) 12/18/2021 Comments Yes Sex and Gender Information Value Date Recorded Sex Assigned at Female 06/13/2021 12:54 PM CDT Legal Sex Female 2:24 PM PM TECHNICIAN Gender Identity Female 12/21/2021 1:04 PM CDT Sexual Orientation Straight 12/21/2021 1: 04 PM CDT documented as of this encounter Plan of Treatment Upcoming Encounters Date Type Department Care Team (Late st Contact Info) Description 10/22/2024 9:00 AM PM TECHNICIAN Telemedicine Department of Obstetrics and Gynecology in [place], [place] [address] [place] [phone] Cornelia Turner M.D. [address] [place] [phone] Barb Lovelace M.S., [facility] [address] [place] [phone] documented as of this encounter Procedures Procedure Name Priority Date/Time Associated Diagnosis Comments CHROMOSOMES, CONGENITAL, BLOOD Routine 09/17/2024 10:57 AM PM TECHNICIAN Recurrent Loss First Trimester (HCC) PHOSPHOLIPID (CARDIOLIPIN) ABS, IGG AND IGM, S Routine 09/17/2024 10:57 AM PM TECHNICIAN Recurrent Loss First Trimester (HCC) documented in this encounter Results * Chromosome Analysis, Congenital Disorders (09/17/2024 10:57 AM PM TECHNICIAN) Result Summary Normal 09/27/2024 12:13 PM PM TECHNICIAN DTL Karyotype 46,XX 09/27/2024 12:13 PM PM TECHNICIAN DTL Reason for referral recurrent loss 09/27/2024 12:13 PM PM TECHNICIAN DTL Specimen Blood 09/27/2024 12:13 PM PM TECHNICIAN DTL Method 72 hour culture w/mitogens 09/27/2024 12:13 PM PM TECHNICIAN DTL Banding Method Band Resolution: [id number] Stain Name Cells Analyzed Cells Karyograms Counted Prepared GTL 5 15 2 Total 5 15 2 [place] to Stain Name: GTL=G-banding; QFQ=Q-banding; DAPI=DAPI-stain ing; CBL=C-banding; AGNOR=Silver-st aining; NON=Non-banded The sum of Cells Analyzed and Cells Counted equals the total cells examined. 09/27/2024 12:13 PM PM TECHNICIAN DTL Additional Information A portion of the testing process was performed at [facility] site [id number]. 09/27/2024 12:13 PM PM TECHNICIAN DTL Released by Marianne Holguin, Ph.D. 09/27/2024 12:13 PM PM TECHNICIAN DTL Interpretation No chromosome abnormality was apparent. 09/27/2024 12:13 PM PM TECHNICIAN DTL Blood (Blood, Venous) 09/17/2024 10:57 AM PM TECHNICIAN 09/17/2024 11:30 AM PM TECHNICIAN Cornelia Turner M.D. LAB GENETIC TESTING Final Result Performing Organization Address City/[facility]/ZIP Co de Phone Number [facility] [address] [place] [address], [facility] DTL [address] [facility] [address] [place] [address] * Phospholipid (Cardiolipin) Antibodies, IgG and IgM (09/17/2024 10:57 AM PM TECHNICIAN) Pathologist [facility] Phospholipid Ab IgM, S <9.4 <15.0 (Negative) MPL 09/17/2024 8:19 PM PM TECHNICIAN [facility] Phospholipid Ab IgG, S <9.4 <15.0 (Negative) GPL 09/17/2024 8:19 PM PM TECHNICIAN [facility] Blood (Blood, Venous) 09/17/2024 10:57 AM PM TECHNICIAN 09/17/2024 1:37 PM PM TECHNICIAN us Cornelia Turner M.D. LAB BLOOD ADD-ON Fin al Result [facility] [address] [place] [address] [facility] [address] [place] [address] documented in this encounter Visit Diagnoses Diagnosis Recurrent Loss First Trimester (HCC) documented in this encounter Additional Health Concerns Assessment Noted Time PHQ-9 Depression Total Score: 4 09/16/19 25 10:47 AM PM TECHNICIAN documented as of this encounter Care Teams Sole Edge Inker Machine Relationship Specialty Start Date End Date Elsewhere, Pcp PCP - General Internal Medicine 05/28/22 documented as of this encounter
--- OUTSIDE RECORDS SUMMARY | 2024-10-14 11:01 | XMS_ITS | Encounter Summary ---
Author Organization [facility] Address [address] [place] [address] Care Team Providers Care Admissions Representative Name Role Phone Elsewhere, Pcp Primary Care Provider Unavailabl e Reason for Referral * Outpatient (Routine) - Authorized Specialty Diagnoses / Procedures Referred By Contac t Referred To Contact Obstetrics and Gynecology Diagnoses Recurrent Loss First Trimester (HCC) Cornelia Turner M.D. [address] [place] [address] Phone: tel: fax: [facility] Referral ID Status Reason Start Date Expiration Date V isits Requested Visits Authorized [id number] Authorized 09/17/2024 03/19/2026 1 1 ER EDITOR Reason for Visit * Outpatient (Routine) - Closed Specialty Diagnoses / Procedures Referred By Contac t Referred To Contact Obstetrics and Gynecology Karina Garza M.D. [address] [place] [address] Phone: tel: fax: [facility] Referral ID Status Reason Start Date Expiration Date Visits Re quested Visits Authorized [id number] Closed 07/21/2024 01/20/2026 1 1 Encounter Details Date Type Department Care Team (Late st Contact Info) Description 09/17/2024 9:00 AM WRITER EDITOR Comprehensive Visit Department of Obstetrics and Gynecology in [place], [place] [address] [place] [address] Cornelia Turner M.D. [address] [place] [address] Recurrent Loss First Trimester (HCC) (Primary Dx); Management Procreative; Infertility Female Social History Tobacco Use Types Packs/Day Years Used Date Smoking Tobacco: Never Smokeless Tobacco: Never Alcohol Use Standard Drinks/Week Comments Yes 3 (1 standard drink = 0.6 oz pur e alcohol) [facility] Utilities Answer Date Recorded In the past 12 months has e [employer], gas, oil, or water company threatened to [...] often do you attend chur ch or protestant services? More than 4 times per year 07/21/2022 Do you belong to any clubs o r organizations such as gnosticism groups, unions, fraternal or athletic groups, or [...] Answer Date Recorded PHQ-2 Score 2 09/16/2024 [facility] - Occupational Stress [...] money to buy more. Never true 03/10/20 24 Within the past 12 months, t he [...] your living situation today? I have a [facility] place to live 03/10/2024 Education Answer Date Recorded What is the highest level of school you have completed or the highest degree you have received? Bachelor's degree (e.g., BA, AB, BS) 12/18/2021 Comments Yes Sex and Gender Information Value Date Recorded Sex Assigned at Female 06/13/2021 12:54 PM CDT Legal Sex Female 2:24 PM WRITER EDITOR Gender Identity Female 12/21/2021 1:04 PM CDT Sexual Orientation Straight 12/21/2021 1: 04 PM CDT documented as of this encounter Last Filed Vital Signs Vital Sign Reading Time Taken Comments Blood Pressure 131/76 09/17/2024 8:56 AM WRITER EDITOR Pulse 90 09/17/2024 8:56 AM WRITER EDITOR Temperature - - Respiratory Rate - - Oxygen Saturation - - Inhaled Oxygen Concentration - - Weight 62 kg (136 lb 11 oz) 09/17/2024 8:[address] Height - - Body Mass Index 20.72 03/15/2024 7:46 AM CDT documented in this encounter Consult Notes * Cornelia Turner M.D. - 09/17/2024 9:00 AM CST Images from the original note were not included. SUBJECTIVE Reason For Consult: Desire to conceive, recurrent loss. History of Present Illness: Natividad Bravo is a 34 y.o. who presents for a Reproductive Endocrinology and Infertility consultation. They are seen today with their partner Fredrick. Presenting Problem: (Patient-Rptd) Desire to conceive; Miscarriages; In vitro fertilization; Genetic testing Attempting for: (Patient-Rptd) 19 consecutive months currently with two miscarriages, 8 months the first time Successful pregnancies with current partner: (Patient-Rptd) No Prior fertility evaluation: (Patient-Rptd) Bloodwork; Tubal evaluation; Ultrasound Prior fertility evaluation: (Patient-Rptd) HSG test, thyroid test, Abdi disease test, ultrasound to check good egg reserve Prior treatment(s): (Patient-Rptd) Clomid; Letrozole; Intrauterine insemination (IUI) Prior treatment(s): (Patient-Rptd) 4 IUI (1 resulted in Chemical ). two rounds of Clomid, 8 rounds of Letrozle. one reaching 3 months before miscarriage was with letrozole, no IUI. Other issues/comments/concerns: (Patient-Rptd) Genetic testing and next steps. Possible IVF. Sybil have had a second loss since our prior visit. This most recent loss,also after a letrozole/IUI cycle, was at 11 weeks although baby measured closer to 9 weeks. Natividad first presented with abnormal discharge and began bleeding a few days (4-5) later. She has used progesterone supplementation beginning after ovulation for all of her medicated cycles. There was no genetic testing done on this loss. Her first loss was a biochemical loss. Natividad messaged yesterday to share she had a positive home test after a letrozole and timed intercourse cycle. hCG yesterday was 420. She stopped progesterone a week ago because she thought she was not . Natividad has a normal TSH. She had negative testing for lupus anticoagulant and anticardiolipin. Prior HSG showed no fill in a single tube - we do not know if it spasmed or is truly occluded. There is no known hydrosalpinx. Today, Natividad presents to discuss evaluation for recurrent loss (she has now had one biochemical and one clinical loss) and next steps if she desires future fertility treatment. 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 Intermenstrual bleeding: (Patient-Rptd) No Dysmenorrhea: (Patient-Rptd) Mild Can detect ovulation with OPK: (Patient-Rptd) Yes Chronic pelvic pain: (Patient-Rptd) No H/o contraceptive use: (Patient-Rptd) Pills Last contraceptive use: (Patient-Rptd) 11/13/22 H/o pelvic infections: (Patient-Rptd) No Last Pap smear: (Patient-Rptd) 05/16/23 H/o abnormal Pap: (Patient-Rptd) No Had a mammogram?: (Patient-Rptd) No Sour John frequency: (Patient-Rptd) 2-4 times a week Uses lubricant with intercourse: (Patient-Rptd) No Finds intercourse painful: (Patient-Rptd) Sometimes Painful intercourse description: (Patient-Rptd) Deep Partner History: Partnered: (Patient-Rptd) Yes Partnered for: (Patient-Rptd) 10 years Partner age: (Patient-Rptd) 30 Partner in good health?: (Patient-Rptd) Yes Partner with children from prior relationships?: (Patient-Rptd) No Partner tobacco use: (Patient-Rptd) No Partner ETOH use: (Patient-Rptd) Yes, rarely Partner drug use: (Patient-Rptd) No Partner occupation: (Patient-Rptd) Advisor, in office work Partner's sex: (Patient-Rptd) Male Partner semen eval: (Patient-Rptd) Yes, normal Partner ejaculation/erection problems: (Patient-Rptd) No Partner H/o genital surgery: (Patient-Rptd) Yes Past medical history, past surgical history, family history, obstetrical history, genetic history, medications and social history were reviewed and updated through the appropriate history tools. Review of Systems Patient answers are not available for this visit. OBJECTIVE VITAL SIGNS Blood Pressure: 131/76 (09/17/2024 8:56 AM) Pulse Rate: 90 (09/17/2024 8:56 AM) Weight: 62 kg (09/17/2024 8:56 AM) BMI Readings from Last 1 Encounters: 09/17/24 20.72 kg/m?? Lab Results Component Value Date FSH 4.5 08/15/2021 ESTRADIOLRAP 65.0 08/15/2021 TSH 1.810 01/07/2023 Lab Results Component Value Date [id number] Non-Reactive 04/29/2024 Screenin09/16/2024 10:47 AM PHQ9 Score PHQ-9 Total Score (max 27) 4 Patient-reported MP-7 Total Score (max 21): (Patient-Rptd) 5 (09/16/2024 10:47 AM) Depression and anxiety screening were completed and reviewed at the visit today. Patient was given resources for anxiety and depression, and offered referral as clinically indicated. ASSESSMENT / PLAN Assessment #1 Recurrent Loss First Trimester (HCC) #2 Management Procreative #[address] Joya and I met with Natividad and Fredrick. Natividad is a 34 y.o. with history of infertility, now recurrent loss, and recently (LMP 08/16, hCG 09/16 was 420). We reviewed the definition of recurrent loss when an individual has two or more clinical losses. We reviewed etiology and testing for recurrent loss. I explained that possible etiology includes genetic, anatomic, lifestyle, medical and unexplained causes, which accountfor at least 50% of all causes. We reviewed that the anatomic causes of RPL are typically diagnosed using sonohysterography and 3D sonography when patient is not . I explained that sonohysterography delineates the uterine cavity's internal contours and provides concomitant sonographic visualization of the outer surface and wall of the uterus. We also discussed that the sonohysterography must be done after menstruation is over but ideally before ovulation (typically cycle day 5-12). We can consider this in the future, if needed. We also discussed the possibility of repeating an HSG to see definitively if she has right tubal occlusion. We discussed that this would not necessarily change how we plan for future fertili ty treatments, but may be useful for reassurance. 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 Genetic causes of recurrent loss could be investigated by performing a karyotype. I explained that the purpose is to detect balanced reciprocal or Robertsonian translocations or mosaicism that could be passed to the fetus unbalanced. We will order this today for both Natividad and Fredrick.I would consider genetic testing of future losses, if needed. They are ultrasound interested in meeting with genetic counselor for carrier screening, which has been ordered today. We discussed that the investigation for immunologic causes of recurrent loss includes antiphospholipid antibody testing. Cardiolipin and Lupus anticoagulants have been negative. Anti-phospholipid antibodies were not tested. We will order these. Finally, the endocrine evaluation for recurrent loss includes thyroid function tests which were recently completed and normal. We discussed that various treatments are offered to these patients, but there is no universal recommendation for the treatment of these patients. We also discussed that no matter what the workup results are even after having three miscarriages, a woman has a 60-80% chance of conceiving and carryinga full-term . We went over IVF with preimplantation genetic testing as a possible option. If karyotype is normal, repeated attempts at Letrozole/IUI may be considered given their prior conceptions. All other questions at this point were answered. Plan hCG (09/16/2023) - 420 - this is a new . Plan for repeat hCG in [place]. Today: karyotype testing (both) and anti-phospholipid antibodies for Natividad If another loss - consider genetic testing of tissue and sonohysterogram after hCG is negative. Referral to Reproductive Genetics for discussion of expanded carrier screening I personally spent 65 minutes in care of the patient today. Time includes both non face to face andface to face patient care. Daiana Turner M.D. and Seda Joya M.D. [facility]: -Scheduling [phone] -Financial [phone] or [email or web address] -Fax Number to Send Outside Medical Records [phone] -Fax Number to Send Fertility Monitoring Results [phone] -Patient Online Services: [email or web address] ER EDITOR documented in this encounter Plan of Treatment Upcoming Encounters Date Type Department Care Team (Late st Contact Info) Description 10/22/2024 9:00 AM WRITER EDITOR Telemedicine Department of Obstetrics and Gynecology in [place], [place] [address] [place] [address] Cornelia Turner M.D. [address] [place] [address] Barb Lovelace M.S., [facility] [address] [place] [phone] Scheduled Referrals Name Type Priority Associated Diagnoses Order Schedule Obstetrics and Gynecology - Clinical genomics consult (clinic) Outpatient Referral Routine Recurrent Loss First Trimester (HCC) Expected: 09/17/2024 (Approximate), Expires: 12/16/2025 documented as of this encounter Results * Chromosome Analysis, Congenital Disorders (09/17/2024 10:57 AM WRITER EDITOR) Pathologist [facility] Result Summary Normal 09/27/2024 12:13 PM WRITER EDITOR DTL Karyotype 46,XX 09/27/2024 12:13 PM WRITER EDITOR DTL Reason for referral recurrent loss 09/27/2024 12:13 PM WRITER EDITOR DTL Specimen Blood 09/27/2024 12:13 PM WRITER EDITOR DTL Method 72 hour culture w/mitogens 09/27/2024 12:13 PM WRITER EDITOR DTL Banding Method Band Resolution: 550-299 Stain Name Cells Analyzed Cells Karyograms Counted Prepared GTL 5 15 2 Total 5 15 2 [place] to Stain Name: GTL=G-banding; QFQ=Q-banding; DAPI=DAPI-stain ing; CBL=C-banding; AGNOR=Silver-st aining; NON=Non-banded The sum of Cells Analyzed and Cells Counted equals the total cells examined. 09/27/2024 12:13 PM WRITER EDITOR DTL Additional Information A portion of the testing process was performed at [facility] [employer] ([place] site [id number]. 09/27/2024 12:13 PM WRITER EDITOR DTL Released by Marianne Holguin, Ph.D. 09/27/2024 12:13 PM WRITER EDITOR DTL Interpretation No chromosome abnormality was apparent. 09/27/2024 12:13 PM WRITER EDITOR DTL Blood (Blood, Venous) 09/17/2024 10:57 AM WRITER EDITOR 09/17/2024 11:30 AM WRITER EDITOR Cornelia Turner M.D. LAB GENETIC TESTING Final Result [facility] [address] [place] [address], [facility] [address] [place] [address] * Phospholipid (Cardiolipin) Antibodies, IgG and IgM (09/17/2024 10:57 AM WRITER EDITOR) Pathologist [facility] Phospholipid Ab IgM, S <9.4 <15.0 (Negative) MPL 09/17/2024 8:19 PM WRITER EDITOR SDSC Phospholipid Ab IgG, S <9.4 <15.0 (Negative) GPL 09/17/2024 8:19 PM WRITER EDITOR [facility] Blood (Blood, Venous) 09/17/2024 10:57 AM WRITER EDITOR 09/17/2024 1:37 PM WRITER EDITOR Cornelia Turner M.D. LAB BLOOD ADD-ON Fin al Result [facility] [address] [place] [address] [facility] [address] [place] [address] documented in this encounter Visit Diagnoses Diagnosis Recurrent Loss First Trimester (HCC)- Primary Management Procreative Infertility Female documented in this encounter Additional Health Concerns Assessment Noted Time PHQ-9 Depression Total Score: 4 09/16/19 25 10:47 AM WRITER EDITOR documented as of this encounter Care Teams Admissions Representative Relationship Specialty Start Date End Date Elsewhere, Pcp PCP - General Internal Medicine 05/28/22 documented as of this encounter
[2024-10-14 11:50] VITALS: BP 118/70; PULSE 77; RESP 18; TEMP 37.5; O2SAT 97; BMI 20.4
[2024-10-14 12:41] VITALS: BP 116/68; PULSE 84; RESP 20; O2SAT 100
--- NOTE | 2024-10-14 12:52 | ED.PREGNANCY ---
HPI - General Chief complaint: Vaginal Bleeding Stated complaint: 8.5 wks preg spotting Time Seen by Provider: 10/14/24 12:36 History of Present Illness HPI Narrative: This 34-year-old female is 8 and half weeks and comes in reporting some abdominal pain with brief cramps or spasms and some bloody discharge vaginally. She has had 2 previous miscarriages and is very concerned that she may be encountering another 1. 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 Eyes: No discharge. No vision changes. HENT: No congestion, no sore throat, no ear pain. Cardiovascular: No chest pain, no palpitations. Respiratory: No shortness of breath, no wheezes, no cough. Gastrointestinal: No vomiting, no diarrhea. Genitourinary: No dysuria, no hematuria. Musculoskeletal: Normal range of motion. Skin: No rashes, no pruritis. Neurological: No dizziness, weakness, sensory change, speech change. Endo/Heme/Allergies: No bruising or bleeding. No polydipsia. Pysch: no suicidality, no anxiety, no insomnia. All other systems reviewed and are negative. [facility] Medical History Abdominal pain ?R10.9 - Unspecified abdominal pain (ICD-10) Abdominal pain, acute ?R10.9 - Unspecified abdominal pain (ICD-10) Health care directive on file ?Z78.9 - Other specified health status (ICD-10) Anxiety and depression ?F41.9 - Anxiety disorder, unspecified (ICD-10) ?F32.A - Depression, unspecified (ICD-10) IBS (irritable bowel syndrome) ?K58.9 - Irritable bowel syndrome without diarrhea (ICD-10) Pelvic pain ?R10.2 - Pelvic and perineal pain (ICD-10) Surgical History S/P exploratory laparotomy (04/08/22) ?Z98.890 - Other specified postprocedural states (ICD-10) H/O foot surgery ?Z98.890 - Other specified postprocedural states (ICD-10) History of tonsillectomy ?Z90.89 - Acquired absence of other organs (ICD-10) Family History Grandmother Diabetes Breast cancer Grandfather Diabetes Stroke Grandmother Breast cancer Father High cholesterol Family/Other Diabetes Family/Other Alcohol dependence Social History Narrative: 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 Her mother manages the [employer]. What is your current living situation?: I presently have a place to live Problems where you live: no known problems In the past 12 months, utilities in danger of being shut off: no In past 12 months, lack of transportation kept you from medical appts, meetings, work, or getting things needed for daily living: no In the past 12 mos, have been you worried that your food would run out before you had money to buy more?: never true In the past 12 mos, the food you bought just didn't last and you didn't have money to buy more?: never true Highest level of school completed/degree received: Bachelor's degree Smoking Status: Never smoker Do you use any of these nicotine containing products: None Second hand tobacco smoke exposure: No How often do you have a drink containing alcohol: 2-3 times a week How many standard drinks containing alcohol do you have on a typical day: 1 or 2 How often do you have six or more drinks on one occasion: Less than monthly AUDIT-C Alcohol total score: 4 Non-prescribed substance use: denies use Caffeine: Yes (coffee) How often does anyone, including family, friends and others, physically hurt you: never How often does anyone, including family, friends and others, insult or talk down to you: never How often does anyone, including family, friends and others, threaten you with harm: never How often does anyone, including family, friends and others, scream or curse at you: never service: No Exam Narrative: Exam Narrative: Constitutional: Well-developed, well-nourished, no acute distress. HEENT: Normocephalic, atraumatic. Neck: Normal range of motion. Nontender. Supple. Heart: Regular. No murmurs. Normal rate. Intact distal pulses. Lungs: Clear to auscultation. No chest discomfort. No wheezes, rhonchi, or rales. Abdomen: Normal bowel sounds. Mild distension due to 1st trimester . Genitalia: Deferred. Back: No midline tenderness. Normal range of motion. Extremities: Normal range of motion. No injury. Skin: Intact. No rash. Warm. No erythema or pallor. Neurologic: No altered sensation. No weakness. Alert and oriented. Psychiatric: No suicidality. No anxiety or depression. No insomnia. Nursing notes and vitals signs are reviewed. Const: Vital Signs, click to edit/add: Vital Signs - 24 hr 10/14/24 11:50 10/14/24 12:41 Temperature 99.5 F Pulse Rate [Pulse Oximeter] 77 84 Respiratory Rate 18 20 Blood Pressure [Ri ght Upper Arm] 118/70 116/68 Pulse Oximetry 97 100 Oxygen Delivery Me thod Room Air Room Air Course Vital Signs Vital signs: Initial Vital Signs Temperature 99.5 F 10/14/24 11:50 Temperature Source Temporal Artery Scan 10/14/24 11:50 Pulse Rate 77 10/14/24 11:50 Respiratory Rate 18 10/14/24 11:50 Blood Pressure 118/70 10/14/24 11:50 Blood Pressure Mean 86 10/14/24 11:50 Blood Pressure Position Sitting 10/14/24 11:50 Pulse Oximetry 97 10/14/24 11:50 Oxygen Delivery Method Room Air 10/14/24 11:50 Vital Signs Temperature 99.5 F 10/14/24 11:50 Pulse Rate 77 10/14/24 11:50 Respiratory Rate 18 10/14/24 11:50 Blood Pressure 118/70 10/14/24 11:50 Pulse Oximetry 97 10/14/24 11:50 Oxygen Delivery Method Room Air 10/14/24 11:50 Temperature 99.5 F 10/14/24 11:50 Pulse Rate 84 10/14/24 12:41 Respiratory Rate 20 10/14/24 12:41 Blood Pressure 116/68 10/14/24 12:41 Pulse Oximetry 100 10/14/24 12:41 Oxygen Delivery Method Room Air 10/14/24 12:41 MDM - OB/Uterine Contractions MDM Narrative Medical decision making narrative: This patient comes in with some cramping and bleeding so an ultrasound is obtained. There is a small amount of subchorionic hemorrhage which is likely causing her bloody discharge. The intrauterine otherwise is completely normal. This was very reassuring to the patient and her . Discharge Plan Discharge Clinical Impression: Subchorionic bleed Patient Disposition: Home, Self-Care Condition: Stable Additional Instructions: Continue current plans. Follow up with MD as needed or return if worsening. Prescriptions: No Action DHA 200 mg capsule 1 mg PO Follow Up/Referrals: Rowena Waite MD [Primary Care Provider] - Stand Alone Forms: [facility] Info Instructions
--- OUTSIDE RECORDS SUMMARY | 2024-10-14 13:09 | XMS_ITS | Encounter Summary ---
Author Organization [facility] Address [address] [place] [id number] Care Team Providers Care Ticket Clerk Name Role Phone Elsewhere, Pcp Primary Care Provider Unavailabl e Reason for Referral * Outpatient (Routine) - Closed Specialty Diagnoses / Procedures Referred By Wendy ventura Referred To Contact Diagnoses Pain Pelvic Female Pain Pelvic Floor Female Procedures US Pelvis Transvaginal and Transabdominal Marlyn Lebron M.D. [address] [place] [phone] Phone: tel: fax: [facility] Referral ID Status Reason Start Date Expiration Date Visits Re quested Visits Authorized [id number] Closed 05/06/2022 05/06/2023 1 1 Encounter Details Date Type Department Care Team (Late st Contact Info) Description 05/06/2022 Orders Only Central Appointment Office in [place], [place] [address] [place] [phone] Dave Agustin, MD [place] Pain Pelvic Female; Pain Pelvic Floor Female Social History Tobacco Use Types Packs/Day Years Used Date Smoking Tobacco: Never Assessed Humiliation, Afraid, Rape, and Kick questionnair e Answer Date Recorded Within the last year, have y ou been afraid of your partner or ex-partner? No 12/18/2021 Within the last year, have y ou been humiliated or emotionally abused in other ways by your partner or ex-partner? No Within the last year, have y ou been kicked, hit, slapped, or otherwise physically hurt by your partner or ex-partner? No 12/18/2021 Within the last year, have y ou been raped or forced to have any kind of sexual activity by your partner or ex-partner? No 12/18/2021 Social Connection and Isolat ion Panel [NHANES] Answer Date Recorded In a typical week, how many times do you talk on the phone with family, friends, or neighbors? Three times a week 12/18/2021 How often do you get togethe r with friends or relatives? Twice a week 12/18/2021 How often do you attend [facility] or jainism services? More than 4 times per year 12/18/2021 Do you belong to any clubs o r organizations such as judaism groups, unions, fraternal or athletic groups, or school groups? No 12/18/2021 How often do you attend meet ings of the clubs or organizations you belong to? Patient declined 12/18/2021 Are you , , di vorced, , never , or living with a partner? 12/18/2021 AUDIT-C Answer Date Recorded Q1: How often do you have a drink containing alc ohol? 2-3 times a week 12/18/2021 Q2: How many drinks containi ng alcohol do you have on a typical day when you are drinking? 1 or 2 12/18/2021 Q3: How often do you have si x or more drinks on one occasion? Never 12/18/2021 Overall Financial Resource Strain (CARDIA) Answe r Date Recorded How hard is it for you to pa y for the very basics like food, housing, medical care, and heating? Somewhat hard 12/18/2021 [facility] of Occupat ional Health - Occupational Stress Questionnaire Answer Date Recorded Do you feel stress - tense, restless, nervous, or anxious, or unable to sleep at night because your mind is troubled all the time - these days? To some extent 12/18/2021 Exercise Vital Sign Answer Date Recorde d On average, how many days pe r week do you engage in moderate to strenuous exercise (like a brisk walk)? 4 days 12/18/2021 On average, how many minutes do you engage in exercise at this level? 50 min 12/18/2021 Hunger Vital Sign Answer Date Recorded Within the past 12 months, y ou worried that your food would run out before you got the money to buy more. Never true 12/19/19 Within the past 12 months, t he food you bought just didn't last and you didn't have money to get more. Never true 12/18/2021 PRAPARE - Transportation Answer Date Re corded In the past 12 months, has l ack of transportation kept you from medical appointments or from getting medications? No 01/2022 In the past 12 months, has l ack of transportation kept you from meetings, work, or from getting things needed for daily living? No 12/18/2021 Housing Stability Vital Sign Answer Sam e Recorded In the last 12 months, was t here a time when you were not able to pay the mortgage or rent on time? No 12/18/2021 In the last 12 months, how many places have you lived? 2 12/18/2021 In the last 12 months, was t here a time when you did not have a steady place to sleep or slept in a long term (including now)? No 12/18/2021 Nutrition Answer Date Recorded Nutrition: EVOO Fat Source Yes 12/18 On average, how many serving s of fruits and vegetables do you eat per day (serving size is equal to 1 cup or approximately the size of a tennis ball)? 2-3 12/18/2021 Dental Answer Date Recorded Dental: Regular Dentist Yes 12/19/19 Employment Answer Date Recorded Employment status Employed and actively working without restrictions 12/18/2021 Education Answer Date Recorded What is the highest level of school you have completed or the highest degree you have received? 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 [address] [place] [phone] Barb Lovelace M.S., [facility] [address] [place] [phone] documented as of this encounter Results * US Pelvis Transvaginal and Transabdominal (05/22/2022 6:26 PM CDT) Anatomical Region Laterality Modality Pelvis, Ultrasound RST LOS, Ultrasound ARZ LOS, Ultrasound FLA LOS N/A Ultrasound 05/22/2022 6:27 PM CDT Impressions 05/22/2022 6:34 PM CDT 6.3 cm right ovarian cyst with avascular septations and mural projections which could be clot material suggesting a hemorrhagic cyst. Suggest a follow-up ultrasound to ensure resolution and to confirm this as a benign hemorrhagic cyst. Narrative 05/22/2022 6:34 PM CDT EXAM: US PELVIS TRANSVAGINAL AND TRANSABDOMINAL COMPARISON: None TECHNIQUE: Transabdominal and transvaginal. FINDINGS: Uterus: 2.6 cm x 4.4 cm x 8.2 cm. Myometrium: Normal. Endometrium: Normal. Thickness: 3 mm Right ovary: Fairly large right ovarian cyst measuring up to 6.3 cm. Flow is present in the right ovarian parenchyma. This cyst has avascular wall irregularity and septations which may be due to clot in a hemorrhagic cyst. Ovarian volume: 112 ml. Left ovary: Normal. Ovarian volume: 7 ml. Intraperitoneal Fluid: None. Procedure Note Arnoldo Porras M.D. - 05/22/2022 EXAM: US PELVIS TRANSVAGINAL AND TRANSABDOMINAL COMPARISON: None TECHNIQUE: Transabdominal and transvaginal. FINDINGS: Uterus: 2.6 cm x 4.4 cm x 8.2 cm. Myometrium: Normal. Endometrium: Normal. Thickness: 3 mm Right ovary: Fairly large right ovarian cyst measuring up to 6.3 cm. Flowis present in the right ovarian parenchyma. This cyst has avascular wall irregularity andseptations which may be due to clot in a hemorrhagic cyst. Ovarian volume: 112 ml. Left ovary: Normal. Ovarian volume: 7 ml. Intraperitoneal Fluid: None. IMPRESSION: 6.3 cm right ovarian cyst with avascular septations and mural projectionswhich could be clot material suggesting a hemorrhagic cyst. Suggest a follow-up ultrasound toensure resolution and to confirm this as a benign hemorrhagic cyst. us Marlyn Lebron M.D. IMG US PROCEDURE S Final Result documented in this encounter Visit Diagnoses Diagnosis Pain Pelvic Female Pain Pelvic Floor Female Pain Pelvic Female Pain Pelvic Floor Female documented in this encounter Additional Health Concerns Assessment Noted Time PHQ-9 Depression Total Score: 10 09/03/ 010 1:35 PM SORTER LUMBER STRAIGHTENER documented as of this encounter Care Teams Ticket Clerk Relationship Specialty Start Date End Date Elsewhere, Pcp PCP - General Internal Medicine 05/28/22 documented as of this encounter
--- OUTSIDE RECORDS SUMMARY | 2024-10-14 13:09 | XMS_ITS | Clinical Summary ---
Author Organization [facility] Address [address] [place] [address] Care Team Providers Care Industrial Controls Technician Name Role Phone Elsewhere, Pcp Primary Care Provider Unavailabl e Source Comments Patient records contain information from all sites at [facility]. For routine questions regarding patient records, call [phone] during business hours, M-F 8:00 AM - 5:00 PM Central Time. Record requests for emergency care only can be directed to [phone] at any time.[facility] Allergies Active Allergy Reactions Criticality Noted Date [...] mg capsule 02/23/20 24 Active HYDROcodone-acetam inophen ([place]) 5-325 mg per tablet 1 oral at bedtime as needed. Max acetaminophen dose: 4000mg in 24 hrs. 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 Wellmann, Shelby M 09/17/2024 10:30 AM PRODUCT SAFETY OFFICER Lab Department of Laboratory Medicine and Pathology, [facility], in [place], [place] [address] [place] [address] Cornelia Turner M.D. Recurrent Loss First Trimester (HCC) 09/17/2024 9:00 AM PRODUCT SAFETY OFFICER Comprehensive Visit Department of Obstetrics and Gynecology in [place], [place] [address] [place] [address] Cornelia Turner M.D. Recurrent Loss First Trimester (HCC) (Primary Dx); Management Procreative; Infertility Female from Last 3 Months Family History Medical History Relation Name Comments ADD Brother 1 Ac Woo ADD Brother 2 Hai woo ADD Brother 3 [place] Colon cancer Maternal Grandfather Erv [place] Dementia Maternal Grandfather Erv [place] Skin cancer Maternal Grandfather Erv [place] Stroke Maternal Grandfather Erv [place] Breast cancer Maternal Grandmother [place] Dementia Maternal Grandmother [place] Skin cancer Maternal Grandmother [place]cca [place] Alcohol abuse Mother's Brother [place] Diabetes Mother's Sister Alisha [place] Breast cancer Paternal Grandmother Natasha [place] Relation Name Status Comments Brother 1 [place] Brother 2 Hai woo Brother 3 Brian [place] Maternal Grandfather Erv [place] Maternal Grandmother [place] Mother's Brother [place] Mother's Sister Alisha [place] Paternal Grandmother Natasha Woo Social History Tobacco Use Types Packs/Day Years Used Date Smoking Tobacco: Never Smokeless Tobacco: Never Tobacco Cessation:Counseling Given: Not Answered Alcohol Use Standard Drinks/Week Comments Yes 3 (1 standard drink = 0.6 oz pur e alcohol) [facility] Utilities Answer Date Recorded In the past 12 months has [facility] [employer], gas, oil, or water [employer] threatened to shut off services in your [...] often do you attend chur ch or lutheran services? More than 4 times per year 07/21/2022 Do you belong to any clubs o r organizations such as roman catholic groups, unions, fraternal or athletic groups, or [...] Answer Date Recorded PHQ-2 Score 2 09/16/2024 [facility] Occupat ionde Health - Occupational Stress Questionnaire Answer Date [...] your living situation today? I have a [facility] place to live 03/10/2024 Education Answer Date Recorded What is the highest level of school you have completed or the highest degree you have received? Bachelor's degree (e.g., BA, AB, BS) 12/18/2021 Comments Yes Sex and Gender Information Value Date Recorded Sex Assigned at Female 06/13/2021 12:54 PM CDT Legal Sex Female 2:24 PM PRODUCT SAFETY OFFICER Gender Identity Female 12/21/2021 1:04 PM CDT Sexual Orientation Straight 12/21/2021 1: 04 PM CDT Last Filed Vital Signs Vital Sign Reading Time Taken Comments Blood Pressure 131/76 09/17/2024 8:56 AM PRODUCT SAFETY OFFICER Pulse 90 09/17/2024 8:56 AM PRODUCT SAFETY OFFICER Temperature 36.4 C (97.6 F) 03/15/2024 7:46 [...] st Contact Info) Description 10/22/2024 9:00 AM PRODUCT SAFETY OFFICER Telemedicine Department of Obstetrics and Gynecology in [place], [place] [address] [place] [phone] Cornelia Turner M.D. [address] [place] [phone] Barb Lovelace M.S., [facility] [address] [place] [phone] Health Maintenance Due Date Last Done Comments [...] GONADOTROPIN (HCG), OCTAVIA, Routine 09/20/2024 8:00 AM PRODUCT SAFETY OFFICER CHROMOSOMES, CONGENITAL, BLOOD Routine 09/17/2024 10:57 AM PRODUCT SAFETY OFFICER Recurrent Loss First Trimester (HCC) PHOSPHOLIPID (CARDIOLIPIN) ABS, IGG AND IGM, S Routine 09/17/2024 10:57 AM PRODUCT SAFETY OFFICER Recurrent Loss First Trimester (HCC) HUMAN CHORIONIC GONADOTROPIN (HCG), OCTAVIA, Routine 09/16/2024 8:00 AM PRODUCT SAFETY OFFICER from Last 3 Months Results * (ABNORMAL) hCG (Human Chorionic Gonadotropin), Quantitative, (09/20/2024 8:00 AM PRODUCT SAFETY OFFICER) Only the most recent of2 resultswithin the time period is included. EXT HCG, Quantitative, , S 1,717(A) 0 - 5 EXTERNAL NON-INTERFACE D LAB Blood (Blood, Venous) us Referring Provider Lab External LAB BLOOD ADD-ON Final Result EXTERNAL NON-INTERFACED LAB [address] [place] [address] * Chromosome Analysis, Congenital Disorders (09/17/2024 10:57 AM PRODUCT SAFETY OFFICER) Pathologist [facility] Result Summary Normal 09/27/2024 12:13 PM PRODUCT SAFETY OFFICER DTL Karyotype 46,XX 09/27/2024 12:13 PM PRODUCT SAFETY OFFICER DTL Reason for referral recurrent loss 09/27/2024 12:13 PM PRODUCT SAFETY OFFICER DTL Specimen Blood 09/27/2024 12:13 PM PRODUCT SAFETY OFFICER DTL Method 72 hour culture w/mitogens 09/27/2024 12:13 PM PRODUCT SAFETY OFFICER DTL Banding Method Band Resolution: [id number] Stain Name Cells Analyzed Cells Karyograms Counted Prepared GTL 5 15 2 Total 5 15 2 [place] to Stain Name: GTL=G-banding; QFQ=Q-banding; DAPI=DAPI-stain ing; CBL=C-banding; AGNOR=Silver-st aining; NON=Non-banded The sum of Cells Analyzed and Cells Counted equals the total cells examined. 09/27/2024 12:13 PM PRODUCT SAFETY OFFICER DTL Additional Information A portion of the testing process was performed at [facility] site [id number]. 09/27/2024 12:13 PM PRODUCT SAFETY OFFICER DTL Released by Marianne Holguin, Ph.D. 09/27/2024 12:13 PM PRODUCT SAFETY OFFICER DTL Interpretation No chromosome abnormality was apparent. 09/27/2024 12:13 PM PRODUCT SAFETY OFFICER DTL Blood (Blood, Venous) 09/17/2024 10:57 AM PRODUCT SAFETY OFFICER 09/17/2024 11:30 AM PRODUCT SAFETY OFFICER us Cornelia Turner M.D. LAB GENETIC TESTING Final Result [facility] [address] [place] [address], [facility] [address] [facility] [address] [place] [address] * Phospholipid (Cardiolipin) Antibodies, IgG and IgM (09/17/2024 10:57 AM PRODUCT SAFETY OFFICER) Phospholipid Ab IgM, S <9.4 <15.0 (Negative) MPL 09/17/2024 8:19 PM PRODUCT SAFETY OFFICER SDSC Phospholipid Ab IgG, S <9.4 <15.0 (Negative) GPL 09/17/2024 8:19 PM PRODUCT SAFETY OFFICER SDSC Blood (Blood, Venous) 09/17/2024 10:57 AM PRODUCT SAFETY OFFICER 09/17/2024 1:37 PM PRODUCT SAFETY OFFICER us Cornelia Turner M.D. LAB BLOOD ADD-ON Fin al Result [facility] [address] [place] [address] [facility] [address] [place] [id number] from Last 3 Months Insurance MEDICA Care Teams Industrial Controls Technician Relationship Specialty Start Date End Date Elsewhere, Pcp PCP - General Internal Medicine 05/28/22
--- OUTSIDE RECORDS SUMMARY | 2024-10-14 13:09 | XMS_ITS | Clinical Summary ---
Author Organization [facility] s & [facility] Address [place], [place] [address] Care Team Providers Care Screen Machine Operator Name Role Phone Irma Perez Primary Care Provider [phone] Vaishnavi Lopez [facility] Unavailable + Allergies Active Allergy Reactions [...] aspirin (ECOTRIN) 81 mg enteric coated tabletIndications: [place] recommended Take 81 mg by mouth once daily. Active vit 30-etjz-vixdl-dha 27mg iron- 800 mcg-250 mg capIndications:pre gnancy [...] SAB 12/2023 SPONTANEOUS Comments: Biochemical SA per [facility] Past Medical History: . Date 9 [...] Description 10/12/2024 Transcribe Orders [facility] [place] [phone] Toño James MD 10/04/2024 11:15 AM LOFT WORKER Ancillary Procedure [facility] [address] [place] [address] 10/04/2024 10:00 AM LOFT WORKER OB Encounter [facility] [address] [place] [address] Education (RN OB intake) 10/04/2024 Travel 09/22/2024 Transcribe Orders [facility] [place] [phone] Karina Garza MD 09/20/2024 3:00 PM LOFT WORKER Orders Only [facility] [address] [place] [address] Lab, [place] [facility] 09/20/2024 Travel 09/16/2024 Travel 08/23/2024 9:30 AM LOFT WORKER Orders Only [facility] [address] [place] [address] Lab, [facility] 08/23/2024 Travel from Last 3 Months Immunizations Name Administration Dates Next Due AMB Influenza, IIV3 (Age >=3 years)(Flu Clinic Only) 07/06/2013 COVID-19 vaccine ([facility] [facility] 30mcg/0.3mL) RUSSEL BENSON 08/31/2021,02/02/2021,01/12/2021 DTP 01/22/1993, 2,01/24/1992,10/08 [...] (Age >=3 years) 07/06/2013,09/13,10/28/2006 Influenza, IIV4 10/06/2019,01/14/2018,08/02/2015 Zambian Encephalitis 01/14/2018 MMR 09/14/2004,01/22/1993 Meningococcal Vaccine (Menactra) [...] on file Legal Sex Female 5:27 AM LOFT WORKER Gender Identity Not on file Sexual Orientation Not on file Travel History Travel Start Travel End [facility] 09/24/2024 10/02/2024 Obstetrics History Para Term AB IAB SAB Ectopic Multiple Livin g Live Births 3 0 0 0 2 0 2 0 0 0 Date Outcome GA Total Labor Labor/2nd/3rd Weight Sex Type Anes PTL Keke A1 A5 Name Clin 12/2023 SAB SPONTAN EOUS Comments:Biochemical S A per [facility] 024 SAB 11w 4d SPONTAN EOUS [...] Previous Delivery Type: NA Occupation of patient: [employer]ak[employer]gjtpf[employer] a [employer] in [place]. Name of Partner or Father of baby: [...] SAB 12/2023 SPONTANEOUS Comments: Biochemical SA per [facility] 5P'S SUBSTANCE ABUSE SCREEN FOR ALCOHOL, [...] of estimated date of delivery: No Thalassemia (Tongan, Italian, Mediterranean, or background): MCV less than 80: No Neural tube defect (Meningomyelocele, Spina bifida, or Anencephaly): No Congenital heart defect: No Down syndrome: No Evan-Sachs (Ashkenazi Gnosticism, Cajun, Dominican Montenegrin): No Theo disease (Ashkenazi Gnosticism): No Familial dysautonomia (Ashkenazi Gnosticism): No Sickle cell disease or trait (): No Hemophilia or other blood disorders: No Muscular dystrophy: No Cystic fibrosis: No [place]'s chorea: No Intellectual disability and/or autism: No [...] ( COMPLETE ORAL) Take by mouth. vit 05-vtcs-wntjj-dha 27mg iron- 800 mcg-250 mg cap Take [...] ANTI HCV LC VARICELLA-ZOSTER V AB, IGG LOSS PREVENTION SUPERVISOR PROBE - GC CHLAMYDIA DNA PCR [[id number]] URINALYSIS W REFLEX MICROSCOPIC IF POSITIVE [84017.2] EDUCATION/PATIENT INSTRUCTIONS - Advised patient to start/continue vitamin. - Discussed risk of using alcohol, tobacco, other drugs in . - Discussed healthy lifestyle in . - Provided copy of Beginnings book and book inserts, discussed dtko-irb-ovahizp medications, and follow up. - Encouraged patient to call clinic at [phone] with any vaginal bleeding, fluid leaking from [...] Christina Hall RN .................... 10/04/2024 10:37 AM WORKER WORKER Last Filed Vital Signs Vital Sign Reading Time Taken Comments Blood Pressure 103/67 05/24/2024 7:57 AM CDT Pulse 57 05/24/2024 7:57 AM CDT Temperature 36.9 C (98.5 F) 05/10/2024 3:08 PM CDT Respiratory Rate 14 08/26/2020 12:15 PM LOFT WORKER Oxygen Saturation 99% 05/24/2024 7:57 AM CDT Inhaled Oxygen Concentration - - Weight 63 kg (139 lb) 10/04/2024 10:14 AM LOFT WORKER Height 171.5 cm (5' 7.52) 10/04/2024 10:14 AM Rodriguez OLMEDO Body Mass Index 21.44 10/04/2024 10:14 AM LOFT WORKER Plan of Treatment Upcoming Encounters Date Type Department Care Team (Late st Contact Info) Description 10/21/2024 8:30 AM LOFT WORKER Appointment [facility] [address] [place] [address] 11/01/2024 9:05 AM LOFT WORKER OB Encounter [facility] [address] [place] [address] Rowena Waite MD [address] [place] [address] Health Maintenance Due Date Last Done Comments [...] TRI TV Routine 10/04/2024 11:3 9 AM LOFT WORKER examination or test, unconfirmed ANTI HIV 1/2 Routine 10/04/2024 11:32 AM LOFT WORKER Encounter for supervision of other normal , first trimester CBC W PLT NO DIFF Routine 10/04/2024 11: 32 AM LOFT WORKER Encounter for supervision of other normal , first trimester RUBELLA IMMUNE STATUS Routine 10/04/2024 11:32 AM LOFT WORKER Encounter for supervision of other normal , first trimester HBSAG (HBS) Routine 10/04/2024 11:32 AM LOFT WORKER Encounter for supervision of other normal , first trimester ANTI HCV Routine 10/04/2024 11:32 AM LOFT WORKER Encounter for supervision of other normal , first trimester VARICELLA-ZOSTER V AB, IGG Routine 10/04/2024 11:32 AM LOFT WORKER Encounter for supervision of other normal , first trimester TYPE & SCREEN Routine 10/04/2024 11:31 AM LOFT WORKER Encounter for supervision of other normal , first trimester TREPONEMA PALLIDUM Routine 10/04/2024 11 :31 AM LOFT WORKER Encounter for supervision of other normal , first trimester UA W/ SEDIMENT EXAM REFLEXED PER CRITERIA Routine 10/04/2024 11:31 AM LOFT WORKER Encounter for supervision of other normal , first trimester GC CHLAMYDIA TRACH PROBE Routine 10/04/2024 11:31 AM LOFT WORKER Encounter for supervision of other normal , first trimester URINE CULTURE Routine 10/04/2024 11:31 AM LOFT WORKER Encounter for supervision of other normal , first trimester HCG BETA QUANT, Routine 09/20/2024 2:51 PM LOFT WORKER Encounter for supervision of other normal in first trimester HCG BETA QUANT, Routine 09/16/2024 1:35 PM LOFT WORKER Amenorrhea TSH WITH REFLEX Routine 08/23/2024 9:45 AM LOFT WORKER Recurrent loss THYROPEROXIDASE ANTIBODY Routine 08/23/2024 9:45 AM LOFT WORKER Recurrent loss HPV HIGH RISK Routine 05/13/2023 12:00 PM CDT from Last 3 Months or Most Recently Relevant to Health Maintenance Results * US OB ANY TRI TV (10/04/2024 11:39 AM LOFT WORKER) Anatomical Region Laterality Modality , 2or 3 TRIMESTER, 1ST TRIMESTER Ultrasound 10/04/2024 6:32 PM LOFT WORKER Impressions 10/04/2024 6:32 PM LOFT WORKER 1. Single living intrauterine gestation. Gestational age calculated at 6 weeks 5 days with a sonographic due date of 05/25/2025. 2. 2.5 cm subchorionic hemorrhage Dictated by Micah Park MD @ 10/04/2024 6:32:59 PM (Electronically Signed) Narrative 10/04/2024 6:32 PM LOFT WORKER For Patients: As a result of the [...] VARICELLA-ZOSTER V AB, IGG (10/04/2024 11:32 AM LOFT WORKER) VARICELLA ZOSTER VIRUS ANTIBODY (IGG) 10.20 S/CO [employer] [place] Comment: Signal to Cut-off S/CO Interpretation [...] BLOOD SPECIMEN / Unknown 10/04/2024 11:32 AM LOFT WORKER 10/04/2024 11:33 AM LOFT WORKER Rowena Waite MD LABORATORY Final R esult Performing Organization Address [facility] Co de Phone Number [employer] [address] [address], [facility] [address] [place] [phone] * (ABNORMAL) RUBELLA IMMUNE STATUS (10/04/2024 11:32 AM LOFT WORKER) RUBELLA AB (IGG), IMMUNE STATUS <0.90(L) Index [facility] [place] Comment: Index Interpretation ----- <0.90 Not consistent with immunity 0.90-0.99 Equivocal > or = 1.00 Consistent with immunity The presence of rubella IgG antibody suggests immunization or past or current infection with rubella virus. Blood BLOOD SPECIMEN / Unknown 10/04/2024 11:32 AM LOFT WORKER 10/04/2024 11:33 AM LOFT WORKER Rowena Waite MD SEND OUTS Final R esult Performing Organization Address [facility]/ZIP Co de Phone Number [employer]wire [facility] [address] [place] [address], [facility] [address] [place] [address] * HBSAG (HBS) (10/04/2024 11:32 AM LOFT WORKER) Pathologist [facility] HEPATITIS B SURFACE ANTIGEN NON-REACTI VE NON-REACTI VE [facility] Comment: For additional information, please refer to http://[employer]/faq/NOG196 (This link is being provided for informational/ educational purposes only.) Blood BLOOD SPECIMEN / Unknown 10/04/2024 11:32 AM LOFT WORKER 10/04/2024 11:33 AM LOFT WORKER us Rowena Waite MD SEND OUTS Final R esult Performing Organization Address [facility] Co de Phone Number [employer] [address] [address], [facility] [address] [place] [address] * ANTI HCV (10/04/2024 11:32 AM LOFT WORKER) Pathologist [facility] HEPATITIS C ANTIBODY NON-REACTI VE NON-REACT LIZZIE [facility] Comment: HCV antibody was non-reactive. There is no laboratory evidence of HCV infection. In most cases, no further action is required. However, if recent HCV exposure is suspected, a test for HCV RNA (test code 26117) is suggested. For additional information please refer to http://[employer]/faq/RGA14u1 (This link is being provided for informational/ educational purposes only.) Blood BLOOD SPECIMEN / Unknown 10/04/2024 11:32 AM LOFT WORKER 10/04/2024 11:33 AM LOFT WORKER us Rowena Waite MD SEND OUTS Final R esult Performing Organization Address [facility]/ZIP Co de Phone Number [employer] [address] [place] [address], [facility]y [place] [address] [facility] [place] [address] * CBC W PLT NO DIFF (10/04/2024 11:32 AM LOFT WORKER) Pathologist [facility] WHITE BLOOD CELL COUNT 6.1 3.8 - 10.8 Thousand/u L [employer] [place] RED BLOOD CELL COUNT 4.22 3.80 - 5.10 Million/uL [facility] HEMOGLOBIN 13.6 11.7 - 15.5 g/dL [facility] HEMATOCRIT 40.1 35.0 - 45.0 % [facility] MCV 95.0 80.0 - 100.0 fL [facility] MCH 32.2 27.0 - 33.0 pg [employer] [facility] MCHC 33.9 32.0 - 36.0 g/dL [employer] [facility] Comment: For adults, a slight decrease in the calculated MCHC value (in the range of 30 to 32 g/dL) is most likely not clinically significant; however, it should be interpreted with caution in correlation with other red cell parameters and the patient's clinical condition. RDW 12.3 11.0 - 15.0 % [facility] PLATELET COUNT 236 140 - 400 Thousand/u L [employer] [facility] kristen Kaye MPV 11.6 7.5 - 12.5 fL [employer] kristen Kaye Blood BLOOD SPECIMEN / Unknown 10/04/2024 11:32 AM LOFT WORKER 10/04/2024 11:33 AM LOFT WORKER us Rowena Waite MD HEMATOLOGY Final R esult [employer] [facility] [address] [place] [address], Pam[facility] [place] [address] [facility] [place] [address] * ANTI HIV 1/2 (10/04/2024 11:32 AM LOFT WORKER) HIV AG/AB, 4TH GEN NON-REACT LIZZIE NON-REACT LIZZIE [facility] Comment: HIV-1 antigen and HIV-1/HIV-2 antibodies were [...] purpose. For additional information please refer to http://education.[employer]/faq/GLJ431 (This link is being provided for informational/ educational purposes only.) The performance of this assay has not been clinically validated in patients less than 2 years old. Blood BLOOD SPECIMEN / Unknown 10/04/2024 11:32 AM LOFT WORKER 10/04/2024 11:33 AM LOFT WORKER Rowena Waite MD SEND OUTS Final R esult [facility] [address] [place] [address], [facility] [address] [place] [address] * TREPONEMA PALLIDUM (10/04/2024 11:31 AM LOFT WORKER) TREPONEMA PALLIDUM Non-Reacti ve Non-Reacti ve 10/04/2024 10:[address] [facility] TRAL LABORATORY Blood BLOOD SPECIMEN / Unknown [facility] / Unknown 10/04/2024 11:31 AM LOFT WORKER 10/04/2024 11:31 AM LOFT WORKER Rowena Waite MD SEND OUTS Final R esult [facility] [address] [place] [address], [place] * LOSS PREVENTION SUPERVISOR PROBE - GC CHLAMYDIA DNA PCR [[id number]] (10/04/2024 11:31 AM LOFT WORKER) CHLAMYDIA PROBE Negative 6:51 PM LOFT WORKER [facility] TRAL LABORATORY N GONORRHOEAE PROBE Negative 10/04/2024 6:51 PM LOFT WORKER [facility] TRAL LABORATORY Other URINE SPECIMEN / Unknown Non-Blood / Unknown 10/04/2024 11:31 AM LOFT WORKER 10/04/2024 11:31 AM LOFT WORKER Rowena Waite MD MICROBIOLOGY Final R esult [facility] [address] [place] [address], [place] * TYPE AND SCREEN (10/04/2024 11:31 AM LOFT WORKER) ABORH B Rh Positive 10/04/2024 3:59 PM LOFT WORKER [facility] BLOOD BANK ANTIBODY SCREEN Negative Negative 10/04/2024 3:59 PM LOFT WORKER [facility] LAB BLOOD BANK SPECIMEN EXPIRATION DATE/TIME 10/07/24 23:59 10/04/2024 3:59 PM LOFT WORKER [facility] LAB BLOOD BANK Blood BLOOD SPECIMEN / Unknown [facility] / Unknown 10/04/2024 11:31 AM LOFT WORKER 10/04/2024 11:31 AM LOFT WORKER Rowena Waite MD BLOOD BANK Final R esult [facility] BLOOD BANK [address] [place] [address], [place] [phone] * URINE CULTURE (10/04/2024 11:31 AM LOFT WORKER) CULTURE No growth (<1,000 CFU/mL) 10/05/2024 1:54 PM LOFT WORKER [facility] LABORATORY Urine URINE SPECIMEN / Unknown Non-Blood / Unknown 10/04/2024 11:31 AM LOFT WORKER 10/04/2024 11:31 AM [facility] us Rowena Waite MD MICROBIOLOGY Final R esult [facility] [address] [place] [address], [place] * URINALYSIS W REFLEX MICROSCOPIC IF POSITIVE [74637.2] (10/04/2024 11:31 AM LOFT WORKER) COLOR Yellow Yellow Color 10/04/2024 3:07 PM LOFT WORKER [facility] TRAL LABORATORY CLARITY Clear Clear Clarity 10/04/2024 3:07 PM [facility][1] LABORATORY SPECIFIC GRAVITY,URINE 1.010 1.010, 1.015, 1.020, 1.025 10/04/2024 3:07 PM [facility][1] LABORATORY PH,URINE 7.0 6.0, 7.0, 8.0, 5.5, 6.5, 7.5, 8.5 10/04/2024 3:07 PM [facility] TRAL LABORATORY UROBILINOGEN, QUALITATIVE Normal Normal EU/dl 10/04/2024 3:07 PM LOFT WORKER [facility] TRAL LABORATORY PROTEIN, URINE Negative Negative mg/dL 10/04/2024 3:07 PM [facility] TRAL LABORATORY GLUCOSE, URINE Negative Negative mg/dL 10/04/2024 3:07 PM [facility] KETONES,URINE Negative Negative mg/dL 10/04/2024 3:07 PM [facility] TRAL LABORATORY BILIRUBIN,URI NE Negative Negative 10/04/2024 3:07 PM [facility] OCCULT BLOOD,URINE Negative Negative 10/04/2024 3:07 PM LOFT WORKER [facility] TRAL LABORATORY NITRITE Negative Negative 10/04/2024 3:07 PM [facility] LEUKOCYTE ESTERASE Negative Negative 10/04/2024 3:07 PM [facility][1] LABORATORY Urine URINE SPECIMEN / Unknown Non-Blood / Unknown 10/04/2024 11:31 AM LOFT WORKER 10/04/2024 11:31 AM LOFT WORKER Rowena Waite MD URINE Final R esult [facility] [address] [place] [address], [place] * HCG BETA QUANT, (09/20/2024 2:51 PM LOFT WORKER) Only the most recent of2 resultswithin the time period is included. HCG BETA QUANT,PREGNANC Y 1,717 mIU/mL 09/20/2024 10:30 PM LOFT WORKER [facility] Blood BLOOD SPECIMEN / Unknown [facility] / Unknown 09/20/2024 2:51 PM LOFT WORKER 09/20/2024 2:51 PM LOFT WORKER Narrative [facility] - 09/20/2024 10:30 PM LOFT WORKER Expected Value for Healthy Non- premenopausal women [...] esult [facility] [address] [place] [address], [place] * TSH WITH REFLEX (08/23/2024 9:45 AM LOFT WORKER) TSH W/REFLEX TO FT4 1.57 mIU/L [employer] [facility] [place] Comment: Reference Range > or = 20 Years 0.40-4.50 Ranges First trimester 0.26-2.66 Second trimester 0.55-2.73 Third trimester 0.43-2.91 Blood BLOOD SPECIMEN / Unknown 08/23/2024 9:45 AM LOFT WORKER 08/23/2024 9:46 AM LOFT WORKER Narrative [facility] - 08/24/2024 5:29 AM LOFT WORKER FASTING:NO FASTING: NO Rowena Waite MD CHEMISTRY Final R esult Performing Organization Address City/[facility]/ZIP Co de Phone Number [employer] [facility] [address] [place] [address], [facility] [address] [place] [address] * THYROPEROXIDASE ANTIBODY (08/23/2024 9:45 AM LOFT WORKER) Pathologist [facility] THYROID PEROXIDASE ANTIBODIES 1 <9 IU/mL [facility] kristen [place] Blood BLOOD SPECIMEN / Unknown 08/23/2024 9:45 AM LOFT WORKER 08/23/2024 9:46 AM LOFT WORKER Narrative [facility] - 08/24/2024 3:49 PM LOFT WORKER FASTING:NO FASTING: NO Rowena Waite MD SEND OUTS Final R esult [employer] [facility] [address] [place] [address], [facility] [address] [place] [address] * HPV HIGH RISK (05/13/2023 12:00 PM CDT) TYPE 16 Negative Negative 05/18/2023 3:21 PM CDT [facility] TRAL LABORATORY TYPE 18 Negative Negative 05/18/2023 3:21 PM CDT [facility] TRAL LABORATORY OTHER HIGH RISK TYPES Negative Negative 05/18/2023 3:21 PM CDT [facility] TRA LABORATORY Other (Cervical) 05/13/2023 12:00 PM CDT 05/15/2023 10:52 AM CDT Narrative [facility] - 05/18/2023 3:21 PM CDT HPV types 16, 18, 31, 33, 35, 39, 45, 51, 52, 56, 58, 59, 66 and 68 DNA were undetectable or below the pre-set threshold. Methodology: Tracy Clarissa 4800 HPV Test us Maxine Egan NP MICROBIOLOGY Final Res ult [facility] [address] [place] [address], from Last 3 Months or Most Recently Relevant to Health Maintenance Insurance [employer] CHO[employer] Care Teams Screen Machine Operator Relationship Specialty Start Date End Date TeraIrma hayes DO Keke [address] [place] [address] PCP - General Family Practice 01/07/23 Vaishnavi Lopez L Ac [address] [place] [address] Game Designer 04/24/23
--- OUTSIDE RECORDS SUMMARY | 2024-10-14 13:09 | XMS_ITS | Encounter Summary ---
Author Organization [facility] Address [address] [place] [address] Care Team Providers Care Shipyard Painter Name Role Phone Elsewhere, Pcp Primary Care Provider Unavailabl e Reason for Referral * Outpatient (Routine) - Authorized Specialty Diagnoses / Procedures Referred By Contac t Referred To Contact Obstetrics and Gynecology Diagnoses Recurrent Loss First Trimester (HCC) Cornelia Turner M.D. [address] [place] [address] Phone: tel: fax: [facility] Referral ID Status Reason Start Date Expiration Date V isits Requested Visits Authorized [id number] Authorized 09/17/2024 03/19/2026 1 1 DER'S LABOURER Reason for Visit * Outpatient (Routine) - Closed Specialty Diagnoses / Procedures Referred By Contac t Referred To Contact Obstetrics and Gynecology Karina Garza M.D. [address] [place] [address] Phone: tel: fax: [facility] Referral ID Status Reason Start Date Expiration Date Visits Re quested Visits Authorized [id number] Closed 07/21/2024 01/20/2026 1 1 Encounter Details Date Type Department Care Team (Late st Contact Info) Description 09/17/2024 9:00 AM BUILDER'S LABOURER Comprehensive Visit Department of Obstetrics and Gynecology in [place], [place] [address] [place] [address] Cornelia Turner M.D. [address] [place] [address] Recurrent Loss First Trimester (HCC) (Primary Dx); Management Procreative; Infertility Female Social History Tobacco Use Types Packs/Day Years Used Date Smoking Tobacco: Never Smokeless Tobacco: Never Alcohol Use Standard Drinks/Week Comments Yes 3 (1 standard drink = 0.6 oz pur e alcohol) [facility] Utilities Answer Date Recorded In the past 12 months has e [employer], gas, oil, or water company threatened to [...] often do you attend chur ch or faith services? More than 4 times per year 07/21/2022 Do you belong to any clubs o r organizations such as druze groups, unions, fraternal or athletic groups, or [...] Answer Date Recorded PHQ-2 Score 2 09/16/2024 [facility] of Occupat ional Health - Occupational [...] your living situation today? I have a [facility] place to live 03/10/2024 Education Answer Date Recorded What is the highest level of school you have completed or the highest degree you have received? Bachelor's degree (e.g., BA, AB, BS) 12/18/2021 Comments Yes Sex and Gender Information Value Date Recorded Sex Assigned at Female 06/13/2021 12:54 PM CDT Legal Sex Female 2:24 PM BUILDER'S LABOURER Gender Identity Female 12/21/2021 1:04 PM CDT Sexual Orientation Straight 12/21/2021 1: 04 PM CDT documented as of this encounter Last Filed Vital Signs Vital Sign Reading Time Taken Comments Blood Pressure 131/76 09/17/2024 8:56 AM BUILDER'S LABOURER Pulse 90 09/17/2024 8:56 AM BUILDER'S LABOURER Temperature - - Respiratory Rate - - [...] 9 6/7 weeks 1 12/2023 [employer]ochemical [employer] Security Assessor History: Age of menarche: 17 Period length: [...] (Patient-Rptd) No Had a mammogram?: (Patient-Rptd) No [place] frequency: (Patient-Rptd) 2-4 times a week Uses [...] 1.810 01/07/2023 Lab Results Component Value Date [id number] Non-Reactive 04/29/2024 Screenin09/16/2024 10:47 AM PHQ9 Score [...] like to proceed if this would not change management specialist. Genetic causes of recurrent loss could be [...] new . Plan for repeat hCG in [place]. Today: karyotype testing (both) and anti-phospholipid antibodies [...] Daiana Turner M.D. and Seda Joya M.D. [facility]: -Scheduling [phone] -Financial [phone] or [email or web address] -Fax Number to Send Outside Medical Records [phone] -Fax Number to Send Fertility Monitoring Results [phone] -Patient Online Services: [email or web address] DER'S LABOURER documented in this encounter Plan of Treatment Upcoming Encounters Date Type Department Care Team (Late st Contact Info) Description 10/22/2024 9:00 AM BUILDER'S LABOURER Telemedicine Department of Obstetrics and Gynecology in [place], [place] [address] [place] [address] Cornelia Turner M.D. [address] [place] [address] Barb Lovelace M.S., [facility] [address] [place] [phone] Scheduled Referrals Name Type Priority Associated Diagnoses Order Schedule Obstetrics and Gynecology - Clinical genomics consult (clinic) Outpatient Referral Routine Recurrent Loss First Trimester (HCC) Expected: 09/17/2024 (Approximate), Expires: 12/16/2025 documented as of this encounter Results * Chromosome Analysis, Congenital Disorders (09/17/2024 10:57 AM BUILDER'S LABOURER) Pathologist [facility] Result Summary Normal 09/27/2024 12:13 PM BUILDER'S LABOURER DTL Karyotype 46,XX 09/27/2024 12:13 PM BUILDER'S LABOURER DTL Reason for referral recurrent loss 09/27/2024 12:13 PM BUILDER'S LABOURER DTL Specimen Blood 09/27/2024 12:13 PM BUILDER'S LABOURER DTL Method 72 hour culture w/mitogens 09/27/2024 12:13 PM BUILDER'S LABOURER DTL Banding Method Band Resolution: 550-909 Stain Name Cells Analyzed Cells Karyograms Counted Prepared GTL 5 15 2 Total 5 15 2 [place] to Stain Name: GTL=G-banding; QFQ=Q-banding; DAPI=DAPI-stain ing; CBL=C-banding; AGNOR=Silver-st aining; NON=Non-banded The sum of Cells Analyzed and Cells Counted equals the total cells examined. 09/27/2024 12:13 PM BUILDER'S LABOURER DTL Additional Information A portion of the testing process was performed at [facility] [employer] site [id number]. 09/27/2024 12:13 PM BUILDER'S LABOURER DTL Released by Marianne Holguin, Ph.D. 09/27/2024 12:13 PM BUILDER'S LABOURER DTL Interpretation No chromosome abnormality was apparent. 09/27/2024 12:13 PM BUILDER'S LABOURER DTL Blood (Blood, Venous) 09/17/2024 10:57 AM BUILDER'S LABOURER 09/17/2024 11:30 AM BUILDER'S LABOURER Cornelia Turner M.D. LAB GENETIC TESTING Final Result [facility] [address] [place] [address], [facility] [address] [place] [address] * Phospholipid (Cardiolipin) Antibodies, IgG and IgM (09/17/2024 10:57 AM BUILDER'S LABOURER) Pathologist [facility] Phospholipid Ab IgM, S <9.4 <15.0 (Negative) MPL 09/17/2024 8:19 PM BUILDER'S LABOURER [facility] Phospholipid Ab IgG, S <9.4 <15.0 (Negative) GPL 09/17/2024 8:19 PM BUILDER'S LABOURER [facility] Blood (Blood, Venous) 09/17/2024 10:57 AM BUILDER'S LABOURER 09/17/2024 1:37 PM BUILDER'S LABOURER Cornelia Turner M.D. LAB BLOOD ADD-ON Fin al Result [facility] [address] [place] [address] [facility] [address] [place] [address] documented in this encounter Visit Diagnoses Diagnosis Recurrent Loss First Trimester (HCC)- Primary Management Procreative Infertility Female documented in this encounter Additional Health Concerns Assessment Noted Time PHQ-9 Depression Total Score: 4 09/16/19 25 10:47 AM BUILDER'S LABOURER documented as of this encounter Care Teams Shipyard Painter Relationship Specialty Start Date End Date Elsewhere, Pcp PCP - General Internal Medicine 05/28/22 documented as of this encounter
--- OUTSIDE RECORDS SUMMARY | 2024-10-14 13:09 | XMS_ITS | Encounter Summary ---
Author Organization [facility] Address [address] [place] [address] Care Team Providers Care Concrete Carpenter Name Role Phone Elsewhere, Pcp Primary Care Provider Unavailabl e Encounter Details Date Type Department Care Team (Late st Contact Info) Description 09/17/2024 10:30 AM EXECUTIVE RELATIONS SPECIALIST Lab Department of Laboratory Medicine and Pathology, [facility] in [place], [place] [address] [place] [address] Cornelia Turner M.D. [address] [place] [phone] Recurrent Loss First Trimester (HCC) Social History Tobacco Use Types Packs/Day Years Used Date Smoking Tobacco: Never Smokeless Tobacco: Never Alcohol Use Standard Drinks/Week Comments Yes 3 (1 standard drink = 0.6 oz pur e alcohol) [facility] Utilities Answer Date Recorded In the [...] How often do you attend chur or sabianist services? More than 4 times per year 07/21/2022 Do you belong to any clubs o r organizations such as latter-day groups, unions, fraternal or athletic groups, or [...] Answer Date Recorded PHQ-2 Score 2 09/16/2024 [facility] [place] of Occupat ional Health - Occupational Stress [...] your living situation today? I have a [facility] place to live 03/10/2024 Education Answer Date Recorded What is the highest level of school you have completed or the highest degree you have received? Bachelor's degree (e.g., BA, AB, BS) 12/18/2021 Comments Yes Sex and Gender Information Value Date Recorded Sex Assigned at Female 06/13/2021 12:54 PM CDT Legal Sex Female 2:24 PM EXECUTIVE RELATIONS SPECIALIST Gender Identity Female 12/21/2021 1:04 PM CDT Sexual Orientation Straight 12/21/2021 1: 04 PM CDT documented as of this encounter Plan of Treatment Upcoming Encounters Date Type Department Care Team (Late st Contact Info) Description 10/22/2024 9:00 AM EXECUTIVE RELATIONS SPECIALIST Telemedicine Department of Obstetrics and Gynecology in [place], [place] [address] [place] [address] Cornelia Turner M.D. [address] [place] [phone] Barb Lovelace M.S., [facility] [address] [place] [phone] documented as of this encounter Procedures Procedure Name Priority Date/Time Associated Diagnosis Comments CHROMOSOMES, CONGENITAL, BLOOD Routine 09/17/2024 10:57 AM EXECUTIVE RELATIONS SPECIALIST Recurrent Loss First Trimester (HCC) PHOSPHOLIPID (CARDIOLIPIN) ABS, IGG AND IGM, S Routine 09/17/2024 10:57 AM EXECUTIVE RELATIONS SPECIALIST Recurrent Loss First Trimester (HCC) documented in this encounter Results * Chromosome Analysis, Congenital Disorders (09/17/2024 10:57 AM EXECUTIVE RELATIONS SPECIALIST) Result Summary Normal 09/27/2024 12:13 PM EXECUTIVE RELATIONS SPECIALIST DTL Karyotype 46,XX 09/27/2024 12:13 PM EXECUTIVE RELATIONS SPECIALIST DTL Reason for referral recurrent loss 09/27/2024 12:13 PM EXECUTIVE RELATIONS SPECIALIST DTL Specimen Blood 09/27/2024 12:13 PM EXECUTIVE RELATIONS SPECIALIST DTL Method 72 hour culture w/mitogens 09/27/2024 12:13 PM EXECUTIVE RELATIONS SPECIALIST DTL Banding Method Band Resolution: 781-612 Stain Name Cells Analyzed Cells Karyograms Counted Prepared GTL 5 15 2 Total 5 15 2 [place] to Stain Name: GTL=G-banding; QFQ=Q-banding; DAPI=DAPI-stain ing; CBL=C-banding; AGNOR=Silver-st aining; NON=Non-banded The sum of Cells Analyzed and Cells Counted equals the total cells examined. 09/27/2024 12:13 PM EXECUTIVE RELATIONS SPECIALIST DTL Additional Information A portion of the testing process was performed at [facility] site [id number]. 09/27/2024 12:13 PM EXECUTIVE RELATIONS SPECIALIST DTL Released by Marianne Holguin, Ph.D. 09/27/2024 12:13 PM EXECUTIVE RELATIONS SPECIALIST DTL Interpretation No chromosome abnormality was apparent. 09/27/2024 12:13 PM EXECUTIVE RELATIONS SPECIALIST DTL Blood (Blood, Venous) 09/17/2024 10:57 AM EXECUTIVE RELATIONS SPECIALIST 09/17/2024 11:30 AM EXECUTIVE RELATIONS SPECIALIST Cornelia Turner M.D. LAB GENETIC TESTING Final Result Performing Organization Address City/[facility]/ZIP Co de Phone Number [facility] [address] [place] [address], [facility] DTL [address] [facility] [address] [place] [address] * Phospholipid (Cardiolipin) Antibodies, IgG and IgM (09/17/2024 10:57 AM EXECUTIVE RELATIONS SPECIALIST) Pathologist [facility] Phospholipid Ab IgM, S <9.4 <15.0 (Negative) MPL 09/17/2024 8:19 PM EXECUTIVE RELATIONS SPECIALIST [facility] Phospholipid Ab IgG, S <9.4 <15.0 (Negative) GPL 09/17/2024 8:19 PM EXECUTIVE RELATIONS SPECIALIST [facility] Blood (Blood, Venous) 09/17/2024 10:57 AM EXECUTIVE RELATIONS SPECIALIST 09/17/2024 1:37 PM EXECUTIVE RELATIONS SPECIALIST us Cornelia Turner M.D. LAB BLOOD ADD-ON Fin al Result [facility] [address] [place] [address] [facility] [address] [place] [address] documented in this encounter Visit Diagnoses Diagnosis Recurrent Loss First Trimester (HCC) documented in this encounter Additional Health Concerns Assessment Noted Time PHQ-9 Depression Total Score: 4 09/16/19 25 10:47 AM EXECUTIVE RELATIONS SPECIALIST documented as of this encounter Care Teams Concrete Carpenter Relationship Specialty Start Date End Date Elsewhere, Pcp PCP - General Internal Medicine 05/28/22 documented as of this encounter
--- OUTSIDE RECORDS SUMMARY | 2024-10-14 13:09 | XMS_ITS | Encounter Summary ---
Author Organization [facility] Address [address] [place] [address] Care Team Providers Care Visual Education Director Name Role Phone Elsewhere, Pcp Primary Care Provider Unavailabl e Reason for Visit * Outpatient (Routine) - Authorized Specialty Diagnoses / Procedures Referred By Contitalia t Referred To Contact Obstetrics and Gynecology Diagnoses Recurrent Loss First Trimester (HCC) Cornelia Turner M.D. [address] [place] [phone] Phone: tel: fax: [facility] Referral ID Status Reason Start Date Expiration Date V isits Requested Visits Authorized [id number] Authorized 09/17/2024 03/19/2026 1 1 Encounter Details Date Type Department Care Team (Late st Contact Info) Description 10/12/2024 9:00 AM ARC AND GAS WELDER Nurse Only Department of Obstetrics and Gynecology in [place], [place] [address] [place] [phone] Cornelia Turner M.D. [address] [place] [phone] Olamide De La O Social History Tobacco Use Types Packs/Day Years Used Date Smoking Tobacco: Never Smokeless Tobacco: Never Alcohol Use Standard Drinks/Week Comments Yes 3 (1 standard drink = 0.6 oz pur e alcohol) [facility] Utilities Answer Date Recorded In the past [...] any clubs o r organizations such as islam groups, unions, fraternal or athletic groups, or [...] Answer Date Recorded PHQ-2 Score 2 09/16/2024 [facility] [place] of Occupat ional Health - Occupational Stress [...] PM CDT Legal Sex Female 2:24 PM ARC AND GAS WELDER Gender Identity Female 12/21/2021 1:04 PM CDT Sexual Orientation Straight 12/21/2021 1: 04 PM CDT documented as of this encounter Progress Notes * Olamide De La O - 10/12/2024 9:00 AM CST CHIEF COMPLAINT/PURPOSE OF VISIT Obtain and construct family history for clinical assessment over the phone. HISTORY OF PRESENT ILLNESS Please see Barb Lovelace MS, [facility]'s Clinical Genomics consultation for further details. FAMILY HISTORY A family history was obtained by phone and constructed for the Preconception Genetics consult. The complete family history has been saved as a scanned document and is available for viewing. The patient will be seen in Reproductive Endocrinology and Infertility ([facility]) by Barb Lovelace MS, [facility]. Pleasesee the consult note regarding pertinent findings of the family history in relation to the differential diagnosis and clinical assessment. AND GAS WELDER documented in this encounter Plan of Treatment Upcoming Encounters Date Type Department Care Team (Late st Contact Info) Description 10/22/2024 9:00 AM ARC AND GAS WELDER Telemedicine Department of Obstetrics and Gynecology in [place], [place] [address] [place] [phone] Cornelia Turner M.D. [address] [place] [phone] Barb Lovelace MJerardoS., [facility] [address] [place] [phone] documented as of this encounter Visit Diagnoses Diagnosis Recurrent Loss First Trimester (HCC) documented in this encounter Additional Health Concerns Assessment Noted Time PHQ-9 Depression Total Score: 4 09/16/19 25 10:47 AM ARC AND GAS WELDER documented as of this encounter Care Teams Visual Education Director Relationship Specialty Start Date End Date Elsewhere, Pcp PCP - General Internal Medicine 05/28/22 documented as of this encounter
== END 2024-10-14 13:30 | disposition home or self-care (01) ==
PROVIDERS: Emergency Provider Emergency Medicine Emergency Medical Services; PCP Family Medicine
DX: O46.8X1 Other antepartum hemorrhage, first trimester (principal); Z3A.08 8 weeks gestation of pregnancy
CPT/HCPCS: 76817; 99283; 99284

== ENCOUNTER 2025-02-08 16:03 | Outpatient (CLI) | payer OTHER, SELFPAY ==
[2025-02-08 16:16] VITALS: BP 114/61; PULSE 62
[2025-02-08 16:35] LABS: Appearance Urine Clear (Clear); Bilirubin Urine Negative (Negative); Blood Urine Negative (Negative); Color Urine Yellow (Yellow); Glucose Urine Negative (Negative); Ketones Urine Negative (Negative); Leukocyte Esterase Urine Negative (Negative); Nitrite Urine Negative (Negative); Protein Urine Negative (Negative); Specific Gravity Urine 1.015 (1.000-1.030); Urobilinogen Urine 0.2 (0.2-1.0)
[2025-02-08] MEDS: LACTATED RINGERS 1000 ML 1,000 ML IV (16:39)
[2025-02-08 17:24] LABS: Clue Cells No Clue Cells Seen (None Seen); Trichomonas No Trichomonas Seen (None Seen); Yeast No Yeast Seen (None Seen)
--- NOTE | 2025-02-08 17:56 | PC.OBNST ---
NST Note NST Note Start: 02/08/25 16:08 Freq: ONCE Status: Active Protocol: Document 02/08/25 16:08 [facility] (Rec: 02/08/25 17:56 [facility] No Response) NST Note 3 Para (# of births) 0 EDC 05/23/25 Gestational Age In 25 Weeks & 1 Days Weeks & Days Patient Presented Contractions/cramping with Complaint(s) of Reactive Yes Appropriate for Yes Gestational Age RN Case RN Date 02/08/25 Reactive Yes Appropriate for Yes Gestational Age RN Jetter RN Date 02/08/25 OB NST charge Yes Complete NST Note Yes via Write Note The provider's electronic signature indicates the NST is reactive/appropriate for gestational age. *Note to provider: If an addendum is required, open the patient's chart and click on the note under the Nurse/Allied Health tab.
--- NOTE | 2025-02-08 18:42 | W.PM.NSTNOTE ---
NST Note NST Note NST Note: NST Note NST Note Start: 02/08/25 16:08 Freq: ONCE Status: Discharge Protocol: Document 02/08/25 16:08 [facility] (Rec: 02/08/25 17:56 [facility] No Response) NST Note 3 Para (# of births) 0 EDC 05/23/25 Gestational Age In 25 Weeks & 1 Days Weeks & Days Patient Presented Contractions/cramping with Complaint(s) of Reactive Yes Appropriate for Yes Gestational Age RN Case RN Date 02/08/25 Reactive Yes Appropriate for Yes Gestational Age RN Jetter RN Date 02/08/25 OB NST charge Yes Complete NST Note Yes via Write Note Addendum: Reactive NST.
== END 2025-02-08 18:00 | disposition home or self-care (01) ==
LOC: OB OUT 16:03 → OB 16:04
PROVIDERS: PCP Family Medicine; Visit Provider Student in an Organized Health Care Education/Training Program
DX: O47.02 False labor before 37 completed weeks of gestation, second trimester (principal); Z3A.25 25 weeks gestation of pregnancy
CPT/HCPCS: 59025; 81003; 87210; G0463; J7120

== ENCOUNTER 2025-02-21 14:24 | Outpatient (CLI) | payer OTHER, SELFPAY ==
[2025-02-21] VITALS (7 sets, daily range): BP systolic 112–161; BP diastolic 55–96; PULSE 61–92; O2SAT 96–98
--- NOTE | 2025-02-21 15:48 | CRLHL7_ITS ---
For Patients: As a result of the Century Cures Act, medical imaging exams and procedure reports are released immediately into your electronic medical record. You may view this report before your referring provider. If you have questions, please contact your health care provider. INDICATION: Right upper quadrant abdomen pain. TECHNIQUE: Ultrasound abdomen limited. Sonographic images of the right upper quadrant were obtained using mak-scale and color Doppler images. COMPARISON: None. FINDINGS: Liver: Normal in size and echotexture. No suspicious masses. No intrahepatic biliary dilatation. Gallbladder: No stones or sludge. Normal wall thickness. No pericholecystic fluid. Common bile duct: 4 mm. Pancreas: Unremarkable. Right kidney: Normal in size. Normal echotexture and cortex. No suspicious masses, stones, or hydronephrosis. IMPRESSION: Unremarkable right upper quadrant ultrasound. Dictated by Raul Troncoso MD @ 02/21/2025 7:20:31 PM (Electronically Signed)
[2025-02-21 15:59] LABS: Basophils Percent Auto 0.1 % (0.0-3.0); Eosinophils Percent Auto 0.8 % (0.0-7.0); Hematocrit 37.6 % (33.0-51.0); Hemoglobin* 12.9 gm/dL (12.0-16.0); Immature Granulocytes Pct Auto 0.8 %; Lymphocytes Percent Auto 17.2 % (20-44); Mean Corpuscular HGB Conc 34 gm/dL (32-36); Mean Corpuscular Hemoglobin 32 pg (26-34); Mean Corpuscular Volume 95 fL (80-100); Monocytes Percent Auto 7.3 % (0.0-11.0); Neutrophils Percent Auto 73.8 % (42.0-72.0); Platelet Count* 267 K/uL (140-440); RDW Coefficient of Variation % 12.9 % (11.5-15.5); Red Blood Count 3.98 m/uL (4.00-5.20); White Blood Count* 12.71 K/uL (4.50-11.00)
[2025-02-21 16:14] LABS: Albumin* 3.9 g/dL (3.3-5.0); Chloride* 104 mmol/L (96-114); Potassium* 3.5 mmol/L (3.6-5.1); Sodium* 134 mmol/L (135-149)
[2025-02-21 16:15] LABS: Slide Review Reflex No
[2025-02-21 16:17] LABS: Alanine Aminotransferase* 34 U/L (4-35); Alkaline Phosphatase* 76 U/L (40-150); Anion Gap 5 mEq/L (7-15); Aspartate Amino Transferase* 40 U/L (12-35); Bilirubin Total* 0.5 mg/dL (0.1-1.5); Blood Urea Nitrogen* 6 mg/dL (5-24); Calcium* 8.9 mg/dL (8.4-10.6); Carbon Dioxide* 25 mmol/L (20-32); Creatinine* 0.5 mg/dL (0.5-1.5); Estimated Glomerular Filt Rate 127 ml/min; Glucose* 76 mg/dL (60-115); Total Protein* 6.4 g/dL (6.0-8.3)
[2025-02-21 16:19] LABS: Appearance Urine Clear (Clear); Bilirubin Urine Negative (Negative); Blood Urine Negative (Negative); Color Urine Yellow (Yellow); Glucose Urine Negative (Negative); Ketones Urine Negative (Negative); Leukocyte Esterase Urine Negative (Negative); Nitrite Urine Negative (Negative); Protein Urine Negative (Negative); Specific Gravity Urine 1.015 (1.000-1.030); Urobilinogen Urine 0.2 (0.2-1.0); pH Urine 7.5 (5.0-8.5)
[2025-02-21] MEDS: CALCIUM CARBONATE 500 MG CHEW PO (16:46)
[2025-02-21 17:10] LABS: Creatinine Urine 37.1 mg/dL; Protein Creatinine Ratio Urine 0.35 (0-0.19); Total Protein Urine 13 mg/dL
--- NOTE | 2025-02-21 19:34 | PM.OBLDTN ---
OB - Triage/Final Diagnosis Visit Information Time Seen by Provider: 19:34 Date Seen: 02/21/25 Narrative: The patient is a 34 year old 3 para 0 at 27+0 weeks gestation by LMP, who presents with epigastric abdominal pain. Patient reports several episodes of moderately severe epigastric abdominal pain starting yesterday morning. Experienced 3 episodes in total, each episode lasted a few hours, then resolved to a discomfort. Some radiation around the sides of her upper abdomen toward the back. She had to ask someone to cover the end of her work shift. Most recent episode occurred overnight, ended around 0300. No N/V or diarrhea. Last BM was yesterday and a little hard. No fever/chill/sweats currently, however did have an episode of feeling unwell a few days before the onset of the abdominal pain. Called clinic earlier today to report the symptoms, and was told to come to triage for evaluation and monitoring. Current endorses mild discomfort in the epigastric region. She has been hungry today, and ate brunch and a snack this evening. Occasional BH contractions. Normal movement. No vaginal bleeding. No dysuria/frequency/urgency. Evaluation Laboratory results: Laboratory Tests 02/21/25 02/21/25 02/21/25 Range/Units 16:25 15:53 14:59 WBC 12.71 H (4.50-11.00) K/uL RBC 3.98 L (4.00-5.20) m/uL Hgb 12.9 (12.0-16.0) gm/dL Hct 37.6 (33.0-51.0) % MCV 95 (80-100) fL MCH 32 (26-34) pg MCHC 34 (32-36) gm/dL RDW Coeff of Thomas 12.9 (11.5-15.5) % Plt Count 267 (140-440) K/uL Neut % (Auto) 73.8 H (42.0-72.0) % Lymph % (Auto) 17.2 L (20-44) % [place] % (Auto) 7.3 (0.0-11.0) % Eos % (Auto) 0.8 (0.0-7.0) % Baso % (Auto) 0.1 (0.0-3.0) % Neut # (Auto) 9.40 H (1.7-7.0) K/uL Lymph # (Auto) 2.20 (0.90-2.90) K/uL [place] # (Auto) 0.90 (0.00-0.90) K/UL Eos # (Auto) 0.10 (0.00-0.50) K/uL Baso # (Auto) 0.00 (0.00-0.30) K/uL Abs Immat Gran (auto) 0.10 (0.00-0.30) K/uL Imm/Tot Granulo (auto) 0.8 % Sodium 134 L (135-149) mmol/L Potassium 3.5 L (3.6-5.1) mmol/L Chloride 104 (96-114) mmol/L Carbon Dioxide 25 (20-32) mmol/L Anion Gap 5 L (7-15) mEq/L BUN 6 (5-24) mg/dL Creatinine 0.5 (0.5-1.5) mg/dL Estimated GFR 127 ml/min Glucose 76 (60-115) mg/dL Calcium 8.9 (8.4-10.6) mg/dL Total Bilirubin 0.5 (0.1-1.5) mg/dL AST 40 H (12-35) U/L ALT 34 (4-35) U/L Alkaline Phosphatase 76 (40-150) U/L Total Protein 6.4 (6.0-8.3) g/dL Albumin 3.9 (3.3-5.0) g/dL Urine Color Yellow (Yellow) Urine Appearance Clear (Clear) Urine pH 7.5 (5.0-8.5) Ur Specific [place] 1.015 (1.000-1.030) Urine Protein Negative (Negative) Urine Glucose (UA) Negative (Negative) Urine Ketones Negative (Negative) Urine Blood Negative (Negative) Urine Nitrite Negative (Negative) Urine Bilirubin Negative (Negative) Urine Urobilinogen 0.2 (0.2-1.0) Ur Leukocyte Esterase Negative (Negative) Urine Creatinine 37.1 mg/dL Protein/Creatinin Ratio 0.35 H (0-0.19) Urine Total Protein 13 mg/dL Vital signs: Vital Signs - 24 hr 02/21/25 14:29 02/21/25 14:34 02/21/25 14:39 Pulse Rate 86 Blood Pressure 161/96 H Pulse Oximetry 96 98 97 02/21/25 14:53 02/21/25 14:58 02/21/25 15:03 Pulse Rate 62 Blood Pressure 112/55 L Pulse Oximetry 98 98 02/21/25 18:04 02/21/25 18:04 Pulse Rate 61 Blood Pressure 116/60 Pulse Oximetry Comments: General appearance: Well-appearing adult female. Alert, oriented and appropriate. Sitting up in hospital bed. HEENT: EOMI, no conjunctival injection or discharge. MMM. Neck: Supple. CV: RRR, no rubs, murmurs or extra heart sounds. Pulm: CTAB, no wheezes, rales or rhonchi. Abdomen: Gravid. Soft, mild epigastric tenderness to palpation. No guarding or rebound. MSK: Moving all extremities. Ext: Warm and well-perfused. No LE edema. Skin: No rashes appreciated over exposed skin. Neuro: Grossly normal strength and sensation. No focal deficits. Psych: Normal affect. Fetus (Single) Heart Rate Baseline: 125 Mule Operator Variability: Moderate (6-25) Monitor Accelerations: Present Monitor Decelerations: None Final Diagnosis (1) Epigastric pain during , antepartum: Status: Acute Problem details: Labs significant for WBC 12.7 with left shift, Na 134, K 3.4, AST 40, ALT WNL. Normal RUQ US. Blood pressures here have been 1teens/50-60 with exception of single pressure of 161/96. Clinical picture most c/w gastroenteritis vs biliary colic having passed the gallstone. Symptoms have overall improved since yesterday. Discussed watchful waiting. If either of the above, would expect that sx continue to improve and resolve with time. Reviewed warning signs and return precautions. Follow-up visit will be arranged in the clinic with Dr. Waite for later this week. (2) Proteinuria affecting in second trimester: Status: Acute Problem details: Pr/Cr 0.35. Patient will be discharge with 24 hour urine collection. Mild elevation of AST, but not 2x ULN. Single elevated blood pressure, but suspect in error given remained of pressures well within normal limits. status reassuring.
== END 2025-02-21 20:32 | disposition home or self-care (01) ==
LOC: OB OUT 14:24 → OB 14:24
PROVIDERS: PCP Family Medicine; Visit Provider Family Medicine
DX: O26.892 Other specified pregnancy related conditions, second trimester (principal); R10.13 Epigastric pain; Z3A.27 27 weeks gestation of pregnancy
CPT/HCPCS: 36415; 59025; 76705; 80053; 81003; 82570; 84156; 85025; 99199; G0463; A9270

== ENCOUNTER 2025-02-23 13:58 | Outpatient (CLI) | payer OTHER, SELFPAY ==
[2025-02-23 15:34] LABS: Total Protein Urine 14 mg/dL
[2025-02-23 15:35] LABS: Creatinine Urine 68.2 mg/dL; Protein Creatinine Ratio Urine 0.21 (0-0.19)
[2025-02-23 15:44] LABS: Collection Time Urine 24 Hours; Total Volume 24 Hour Urine 1800 ml; Urine Creatinine mg/24 Hour 1228 mg/Day
== END 2025-02-23 13:59 | disposition home or self-care (01) ==
LOC: LAB 13:59
PROVIDERS: PCP Family Medicine; Visit Provider Family Medicine
DX: O26.892 Other specified pregnancy related conditions, second trimester (principal); R10.13 Epigastric pain; Z3A.27 27 weeks gestation of pregnancy
CPT/HCPCS: 82570; 84156

== ENCOUNTER 2025-03-24 09:05 | Outpatient (CLI) | payer OTHER, SELFPAY ==
[2025-03-24 09:32] VITALS: BP 117/77; PULSE 77
--- NOTE | 2025-03-24 09:41 | CRLHL7_ITS ---
For Patients: As a result of the Cures Act, medical imaging exams and procedure reports are released immediately into your electronic medical record. You may view this report before your referring provider. If you have questions, please contact your health care provider. Indication: VAGINAL BLEEDING ESTIMATED DATE OF DELIVERY (AJITH): 05/23/2025. Technique: Real-time sonographic images of the pelvis were obtained transabdominally and transvaginally using grayscale, color, and Doppler imaging. Comparison: 10/14/2024. Findings: Placenta: Anterior. No previa. : Number: Single. Position: Cephalic. Cardiac activity: 139 BPM. Amniotic fluid: Single deepest pocket measures 4.5 cm. Cervix is closed, measuring 3.2 centimeter in length. Impression: 1. Single live intrauterine . 2. Amniotic fluid with single deepest pocket measuring 4.5 centimeter. 3. Cervix is closed, measuring 3.2 centimeter in length. 4. Anterior placenta. No previa. Dictated by Jeovanny Duval MD @ 03/24/2025 10:35:20 AM (Electronically Signed)
[2025-03-24] MEDS: BETAMETHASONE SOD PHOS/ACETATE 6 MG/ML ML 12 MG IM (10:49)
--- NOTE | 2025-03-24 11:21 | PM.OBLDTN ---
OB - Triage/Final Diagnosis Visit Information Date Seen: 03/24/25 Narrative: The patient is a 34 year old 3 para 0 at 31.3 weeks gestation who presents with vaginal bleeding and contractions. She woke up this morning and had vaginal bleeding with wiping. En route to the hospital, she had more blood on a pad. She reports she has been experiencing what contractions on and off throughout her for the past few weeks. She woke up with some rather intense back pain this morning and started having contractions on her way to the hospital. These have become more intense since they began around 8:45 AM. She denies LOF. movement initially decreased, but she has started to feel more regular movement since arriving. She did have intercourse last evening. Hasn't had bleeding after intercourse before. Denies headache, dizziness, or abdominal pain. Obtained OB US to eval placenta and TV US to eval cervical length. Final radiology read is pending but per discussion with US tech, placenta was without abnormalities, fluid level normal, and cervix was long and closed. Patient is able to reliably feel contractions and talk through them. Palpating moderate. Visual exam of cervix revealed small clot without other abnormalities. Digital exam revealed cervix was closed and high. Discussed with OB on-call, Dr. Frye. Plan for BMTZ now x2 doses Q24 hrs. No nifedipine recommended at this time as cervix is not changing with contractions. Discussed with patient. Low threshold to return to L&D for reevaluation. Return precautions discussed. Will present to [facility] tomorrow at 10:50 AM for second dose of BMTZ. Evaluation Cervical dilation (cm): 0 Vital signs: Vital Signs - 24 hr 03/24/25 09:32 Pulse Rate 77 Blood Pressure 117/77 Fetus (Single) Heart Rate Baseline: 125 Mcfp Variability: Moderate (6-25) Monitor Accelerations: Present Monitor Decelerations: None Station: -4 Final Diagnosis (1) contractions: Status: Acute Total Time Spent Total Time Spent: 90 minutes
--- NOTE | 2025-03-24 14:01 | PC.OBNST ---
NST Note NST Note Start: 03/24/25 09:13 Freq: ONCE Status: Discharge Protocol: Document 03/24/25 11:27 ROCÍO (Rec: 03/24/25 14:01 MARILU [id number]) NST Note 3 Para (# of births) 0 EDC 05/23/25 Gestational Age In 31 Weeks & 3 Days Weeks & Days Patient Presented Contractions/cramping,Other with Complaint(s) of Other Complaints vaginal bleeding Reactive Yes Appropriate for Yes Gestational Age RN Terra Quiñonez RN Date 03/24/25 Reactive Yes Appropriate for Yes Gestational Age PATI Garcia RN Date 03/24/25 OB NST charge Yes Complete NST Note Yes via Write Note The provider's electronic signature indicates the NST is reactive/appropriate for gestational age. *Note to provider: If an addendum is required, open the patient's chart and click on the note under the Nurse/Allied Health tab.
== END 2025-03-24 11:27 | disposition home or self-care (01) ==
LOC: OB OUT 09:07 → OB 09:08
PROVIDERS: PCP Family Medicine; Visit Provider Family Medicine
DX: O47.03 False labor before 37 completed weeks of gestation, third trimester (principal); Z3A.31 31 weeks gestation of pregnancy
CPT/HCPCS: 59025; 76815; 76817; 99199; G0463; J0702

== ENCOUNTER 2025-03-25 10:15 | Outpatient (CLI) | payer OTHER, SELFPAY ==
[2025-03-25 10:35] VITALS: PULSE 102; O2SAT 98
[2025-03-25 10:40] VITALS: PULSE 89; O2SAT 98
[2025-03-25 10:45] VITALS: PULSE 75; O2SAT 97
[2025-03-25 10:46] VITALS: BP 124/59; PULSE 80
[2025-03-25 11:19] LABS: Appearance Urine Clear (Clear)
[2025-03-25 11:24] LABS: Amnisure Rom* POSITIVE
[2025-03-25] MEDS: BETAMETHASONE SOD PHOS/ACETATE 6 MG/ML ML 12 MG IM (12:04)
--- NOTE | 2025-03-25 12:26 | P.OBT_ITS ---
History of Present Illness History of Present Illness Time Seen by Provider: 12:26 Date Seen: 03/25/25 History of Present Illness: 34 year old at weeks gestation by LMP and consistent with early ultrasound with AJITH of 05/23/2025, presents with leaking fluid and contractions. Patient had presented to labor and delivery 03/24/2025 with bleeding and contractions. Had cervical length that was reassuring at >3 cm. SVE was closed. Patient was discharged to home after betamethasone. She returned this morning with ongoing contractions. Reports gush of clear fluid yesterday at 1400. She feel the contractions are becoming more intense. 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 Verified 03/25/25 13:48 wlies citalopram Allergy Mild Verified 03/25/25 13:48 penicillin V Allergy Mild Verified 03/25/25 13:48 amoxicillin Allergy Verified 03/25/25 13:48 erythromycin base Allergy Verified 03/25/25 13:48 fluoxetine (From Prozac) Allergy Verified 03/25/25 13:48 Penicillins Allergy Verified 03/25/25 13:48 [facility] Medical History (Updated 03/25/25 @ 14:00 by Negar Perez MD) contractions ?O47.00 - False labor before 37 completed weeks of gestation, unspecified trimester (ICD-10) Abdominal pain ?R10.9 - Unspecified abdominal pain (ICD-10) Abdominal pain, acute ?R10.9 - Unspecified abdominal pain (ICD-10) Health care directive on file ?Z78.9 - Other specified health status (ICD-10) Anxiety and depression ?F41.9 - Anxiety disorder, unspecified (ICD-10) ?F32.A - Depression, unspecified (ICD-10) IBS (irritable bowel syndrome) ?K58.9 - Irritable bowel syndrome without diarrhea (ICD-10) Pelvic pain ?R10.2 - Pelvic and perineal pain (ICD-10) Surgical History S/P exploratory laparotomy (04/08/22) ?Z98.890 - Other specified postprocedural states (ICD-10) H/O foot surgery ?Z98.890 - Other specified postprocedural states (ICD-10) History of tonsillectomy ?Z90.89 - Acquired absence of other organs (ICD-10) Family History Grandmother Diabetes Breast cancer Grandfather Diabetes Stroke Grandmother Breast cancer Father High cholesterol Family/Other Diabetes Family/Other Alcohol dependence Social History Narrative: 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 Her mother manages the [employer]. What is your current living situation?: I presently have a place to live Problems where you live: no known problems In the past 12 months, utilities in danger of being shut off: no In past 12 months, lack of transportation kept you from medical appts, meetings, work, or getting things needed for daily living: no In the past 12 mos, have been you worried that your food would run out before you had money to buy more?: never true In the past 12 mos, the food you bought just didn't last and you didn't have money to buy more?: never true Highest level of school completed/degree received: Bachelor's degree Smoking Status: Never smoker Do you use any of these nicotine containing products: None Second hand tobacco smoke exposure: No How often do you have a drink containing alcohol: 2-3 times a week How many standard drinks containing alcohol do you have on a typical day: 1 or 2 How often do you have six or more drinks on one occasion: Less than monthly AUDIT-C Alcohol total score: 4 Non-prescribed substance use: denies use Caffeine: Yes (coffee) How often does anyone, including family, friends and others, physically hurt you : never How often does anyone, including family, friends and others, insult or talk down to you: never How often does anyone, including family, friends and others, threaten you with harm: never How often does anyone, including family, friends and others, scream or curse at you: never service: No History History 3 Elective abortions Para 0 Spontaneous abortions Hx # Term Pregnancies Ectopic pregnancies Hx # Pregnancies Multiple births Number of Living Children 0 OB - H&P: Exam Physical Exam Vital signs: Pulse BP Pulse Ox 80 124/59 L 97 03/25/25 10:46 03/25/25 10:46 03/25/25 10:45 Constitutional Constitutional: no acute distress Routine HEENT Exam Head: Present atraumatic and normal inspection Routine Neck Exam Neck: Present full ROM Routine Respiratory Exam Respiratory: Present CTA bilaterally Routine Cardiovascular Exam Cardiovascular: RRR Detailed Abdominal Exam Comments: Gravid, nontender Routine Exam Perineum Description: Normal Detailed Labor and Delivery Exam Patient Gravid: yes Dilation (cm): 0 Effacement (%): 0 Cervix position: posterior Consistency: soft Tachysystole: No Contraction intensity: Moderate Fetus (Single) Station: -4 Amniotic Membrane Status: SROM Amniotic Membrane Fluid Description: Clear Heart Rate Baseline: 140 Monitor Accelerations: Present Monitor Decelerations: Variable Choral Director Variability: Moderate (6-25) Routine Extremities Exam Extremities: Absent pedal edema Routine Skin Exam Present intact Routine Neurological Exam Present alert and oriented X3 Routine Psychiatric Exam Present normal affect and normal thought process Results Labs Laboratory Tests 03/25/25 Range/Units Unknown Urine Color Yellow (Yellow) Urine Appearance Clear (Clear) Urine pH 6.0 (5.0-8.5) Ur Specific [place] >= 1.030 (1.000-1.030) Urine Protein 1+ A (Negative) Urine Glucose (UA) Negative (Negative) Urine Ketones 1+ A (Negative) Urine Blood 2+ A (Negative) Urine Nitrite Negative (Negative) Urine Bilirubin 1+ A (Negative) Urine Urobilinogen 0.2 (0.2-1.0) Ur Leukocyte Esterase Trace A (Negative) Urine RBC 2-5 A (0-2) Urine WBC 5-10 A (0-5) Ur Squamous Epith Cells Moderate A (None-Few) Calcium Oxalate Crystal Moderate A (None) Amorphous Sediment Few A (None) Urine Bacteria Few A (None) Urine Mucus Few A (None) Membrane Rupture POSITIVE Ultrasound Ultrasound Impression: bedside ultrasound shows cephalic positioning Assessment and Plan Assessment and plan (1) premature rupture of membranes (PPROM) with onset of labor after 24 hours of rupture in third trimester, antepartum: Problem comment: PPROM 03/24/2025 at 1400. Amnisure positive at labor and delivery today 03/25. Status: Acute Mode of transport: BLS Ambulance Transfer to: [facility] (2) 31 weeks gestation of : Status: Acute Mode of transport: BLS Ambulance Transfer to: [facility] (3) uterine contractions: Problem comment: rogerio every 8 minutes Status: Acute Mode of transport: BLS Ambulance Transfer to: [facility] Plan Discussed case with perinatology at [facility]) who recommend transfer for higher level of care - Azithromycin and ceftriaxone now (has pcn allergy, unknown details-- did discuss with perinatology. Will likely start ampicillin upon arrival to [facility] when able to monitor for allergy reaction - 2nd betamethasone given - discuss magnesium with perinatology, did not recommend starting - Transfer by BLS ambulance-- discussed with patient who consents to transfer Total time spent Total time spent: 90 minutes
[2025-03-25] MEDS: LACTATED RINGERS 1000 ML 1,000 ML 125 ML IV (12:38)
[2025-03-25] MEDS: cefTRIAXone 1 GM in 0.9 % SODIUM CHLORIDE Mini-bag 100 ML IVPB (13:15)
[2025-03-25] MEDS: AZITHROMYCIN 250 MG TABLET 1000 MG PO (13:18)
[2025-03-25 14:15] VITALS: BP 135/62; PULSE 71; PULSE 74; O2SAT 99
[2025-03-25 14:18] VITALS: RESP 16; TEMP 36.9
--- NOTE | 2025-03-25 17:58 | PC.OBNST ---
NST Note NST Note Start: 03/25/25 10:38 Freq: ONCE Status: Active Protocol: Document 03/25/25 14:15 WK (Rec: 03/25/25 17:57 WK No Response) NST Note 3 Para (# of births) 0 EDC 05/23/25 Gestational Age In 31 Weeks & 4 Days Weeks & Days Patient Presented Contractions/cramping,Leaking fluid with Complaint(s) of Reactive Yes PATI Vinson Date 03/25/25 Reactive Yes PATI Giang RN Date 03/25/25 OB NST charge Yes Complete NST Note Yes via Write Note The provider's electronic signature indicates the NST is reactive/appropriate for gestational age. *Note to provider: If an addendum is required, open the patient's chart and click on the note under the Nurse/Allied Health tab.
[2025-03-26 12:48] LABS: Strep B DNA Probe Negative (Negative)
[2025-03-26 12:58] LABS: Strep B Susceptibility Needed? No
== END 2025-03-25 14:35 | disposition short-term general hospital (02) ==
LOC: OB OUT 10:16 → OB 10:18
PROVIDERS: PCP Family Medicine; Visit Provider Family Medicine
DX: O47.03 False labor before 37 completed weeks of gestation, third trimester (principal); Z3A.31 31 weeks gestation of pregnancy
CPT/HCPCS: 59025; 76815; 81001; 81003; 84112; 87081; 87086; 87653; 99199; G0463; A9270; J0696; J0702; J7120

== ENCOUNTER 2025-03-25 14:17 | Outpatient (CLI) | payer OTHER, SELFPAY | END 2025-03-25 14:18 | disposition home or self-care (01) | PROVIDERS: PCP Family Medicine; Visit Provider Family Medicine | DX: O42.113 Preterm premature rupture of membranes, onset of labor more than 24 hours following rupture, third trimester (principal); Z3A.31 31 weeks gestation of pregnancy | CPT/HCPCS: A0425; A0434 ==